=== PATIENT | male | born 1940 | race Caucasian/White ===

== ENCOUNTER 2018-03-24 07:30 | Day surgery (SDC) | payer MEDICARE, OTHER ==
[2018-03-20 11:35] VITALS: BMI 27.9
[~2018-03-24 07:30] MED LIST: SODIUM CHLORIDE 0.9% 1,000 ML IV SCH; ceFAZolin IN SWFI 2 GM/20 ML SYRINGE IVP ONE
[2018-03-24 08:27] VITALS: PULSE 55; TEMP 97.2
[2018-03-24 08:39] LABS: INR 3.7 (<1.2)
[2018-03-24] MEDS ORDERED: IV FLUID CONTINUATION 400 ML IV ONE (09:20)
[2018-03-24] MEDS ORDERED: fentaNYL (PF) 50 MCG/ML 2 ML AMP ONE (09:26)
[2018-03-24] MEDS ORDERED: LIDOCAINE 1% INJ 10MG/ML (20 ML MDV) ONE (09:26)
[2018-03-24] MEDS ORDERED: LIDOCAINE 1% INJ 10MG/ML (20 ML MDV) SQ ONE (09:31)
--- NOTE | 2018-03-24 09:51 | P.PCN ---
Preoperative Diagnosis: Loop monitor implant Primary physicians: Dr. Blank Studio Receptionist: Dr. Posada Indication: Sinus bradycardia, occasional mild dizzy spells Patient was brought to the EP lab in a fasting state. Written informed consent was obtained prior to the procedure. The left pectoral area was prepped and draped per protocol. Intravenous antibiotic was administered preoperatively. A subcutaneous Loop monitor was implanted successfully and the wound was closed per protocol. The device was programmed to detect significant gayle- arrhythmic and tachy-arrhythmic events, per protocol. Device and programming details: Syncope and bradycardia protocol Patient underwent EP procedure under conscious sedation/moderate sedation, monitoring of the level of consciousness and physiologic parameters including but not limited to vital signs and oxygenation. Patient tolerated the procedure well without any acute complications. Start time: 9:24 AM Stop time: 9:42 AM Condition: stable Disposition: same day
[2018-03-24 10:45] VITALS: BP 123/74; RESP 18
== END 2018-03-24 11:15 | disposition home or self-care (01) ==
LOC: CATHEP 07:30
PROVIDERS: ATTEND Internal Medicine Clinical Cardiac Electrophysiology
DX: R00.1 Bradycardia, unspecified (principal); R55 Syncope and collapse; I44.0 Atrioventricular block, first degree; I48.0 Paroxysmal atrial fibrillation; I10 Essential (primary) hypertension; I08.0 Rheumatic disorders of both mitral and aortic valves; E11.9 Type 2 diabetes mellitus without complications; E78.5 Hyperlipidemia, unspecified; F17.210 Nicotine dependence, cigarettes, uncomplicated; F17.220 Nicotine dependence, chewing tobacco, uncomplicated; Z86.73 Personal history of transient ischemic attack (TIA), and cerebral infarction without residual deficits; Z79.01 Long term (current) use of anticoagulants; Z79.82 Long term (current) use of aspirin; Z79.899 Other long term (current) drug therapy; Z88.2 Allergy status to sulfonamides; Z88.8 Allergy status to other drugs, medicaments and biological substances
CPT/HCPCS: 33282; 85610; C1764; J2001; J0690

== ENCOUNTER 2018-03-31 09:45 | Observation (INO) | payer MEDICARE, OTHER ==
[2018-03-31] MEDS ORDERED: ACETAMINOPHEN TAB 325 MG TAB PO STA ×2 (10:34→10:57)
--- NOTE | 2018-03-31 10:50 | ED ---
General Adult HPI - General Source: patient, RN notes reviewed Mode of arrival: wheelchair Limitations: no limitations <Rik Oates - Last Filed: 03/31/18 15:56> <Eugenio Fernandes - Last Filed: 03/31/18 21:23> - General Chief complaint: Back Pain/Injury Stated complaint: Back pain Time Seen by Provider: 03/31/18 10:10 - History of Present Illness Initial comments: 77-year-old male with a past medical history of hypertension, diabetes, CVA presents to the emergency department for a chief complaint of back pain. Patient states his back pain has been chronic for years however worsened last night. He describes the pain is on his right lower back on the point where he generally has pain. He states pressing on this point makes it feel better. Patient states what brought him in today is his right leg has been giving out. Patient states this first occurred about 4 hours ago and he had to catch himself on a chair. Patient states this has occurred about 5 times since then. Patient was using his 's walker at home but states he did not feel he was able to hold himself up with his arms. He denies any numbness or tingling in the right lower leg. He denies any shooting pain. He denies any bladder or bowel changes. No fevers or chills. Patient denies sensation of weakness at this time and states this is only when he is walking. He denies any midline back pain. He denies any recent injuries. He states he was supposed to have an MRI done by his has been sick so he has not been able to schedule this.Patient has no other complaints at this time including shortness of breath , chest pain, abdominal pain, nausea or vomiting, headache, or visual changes. ( Rik Oates) - Related Data Home Medications Medication Instructions Recorded Confirmed Aspirin 81 mg PO DAILY 03/05/14 03/31/18 Fish Oil 2,000 mg PO DAILY 03/05/14 03/31/18 Losartan/Hydrochlorothiazide 1 tab PO DAILY 03/05/14 03/31/18 [Hyzaar 100-25 Tablet] Red Yeast Rice 300 mg PO DAILY 03/05/14 03/31/18 hydrALAZINE HCL [Apresoline] 50 mg PO PC-BID 03/05/14 03/31/18 Folic Acid 1 mg PO DAILY 06/17/14 03/31/18 Cholecalciferol (Vitamin D3) 2,000 unit PO DAILY 03/20/18 03/31/18 [Vitamin D3] Baclofen [Lioresal] 10 mg PO BID 03/31/18 03/31/18 Multivitamin,Therapeutic [Thera] 1 tab PO DAILY 03/31/18 03/31/18 Warfarin [Coumadin] 7.5 mg PO DAILY 03/31/18 03/31/18 Allergies Allergy/AdvReac Type Severity Reaction Status Date / Time Sulfa (Sulfonamide Allergy Swelling Verified 03/31/18 10:10 Antibiotics) ELASTIC Allergy Rash/Hives Uncoded 03/31/18 09:51 Review of Systems ROS Other: All systems not noted in ROS Statement are negative. <Rik Oates P - Last Filed: 03/31/18 15:56> ROS Other: All systems not noted in ROS Statement are negative. <Eugenio Fernandes - Last Filed: 03/31/18 21:23> ROS Statement: Those systems with pertinent positive or pertinent negative responses have been documented in the HPI. Past Medical History Past Medical History: CVA/TIA, Diabetes Mellitus, Hypertension Additional Past Medical History / Comment(s): diet controlled diabetes, CVA 0ct. 2013 History of Any Multi-Drug Resistant Organisms: None Reported Past Surgical History: Prostate Surgery Additional Past Surgical History / Comment(s): HYDROCELE REPAIR, TURP, pt was septic at one time prior to turp Past Anesthesia/Blood Transfusion Reactions: No Reported Reaction Past Psychological History: No Psychological Hx Reported Smoking Status: Former smoker Past Alcohol Use History: None Reported Past Drug Use History: None Reported - Past Family History Father Family Medical History: Chest Pain / Angina Mother Family Medical History: Dementia Additional Family Medical History / Comment(s): alzheimers <Rik Oates P - Last Filed: 03/31/18 15:56> General Exam Limitations: no limitations General appearance: alert, in no apparent distress Head exam: Present: atraumatic, normocephalic, normal inspection Eye exam: Present: normal appearance, PERRL, EOMI. Absent: scleral icterus, conjunctival injection, periorbital swelling ENT exam: Present: normal exam, mucous membranes moist Neck exam: Present: normal inspection, full ROM. Absent: tenderness, meningismus, lymphadenopathy Respiratory exam: Present: normal lung sounds bilaterally. Absent: respiratory distress, wheezes, rales, rhonchi, stridor Cardiovascular Exam: Present: regular rate, normal rhythm, normal heart sounds. Absent: systolic murmur, diastolic murmur, rubs, gallop, clicks GI/Abdominal exam: Present: soft, normal bowel sounds. Absent: distended, tenderness, guarding, rebound, rigid Rectal exam: Present: normal inspection, normal rectal tone Extremities exam: Present: normal capillary refill (Capillary refill less than 2 seconds, feet warm bilaterally.), other (Sensation intact in right lower extremity.). Absent: full ROM (Patient able to flex right hip to 90), joint swelling Back exam: Present: paraspinal tenderness (Right-sided paraspinal tenderness near SI joint.). Absent: vertebral tenderness Neurological exam: Present: alert, oriented X3, CN II-XII intact Expanded Speech: Present: fluid speech Sensory exam: Lower Extremity Light Touch: Normal, Lower Extremity Pin Prick: Normal Motor strength exam: RUE: 5, LUE: 5, RLE: 5, LLE: 5 DTR: Patellar (R): 2+, Patellar (L): 2+, Achilles Tendon (R): 2+, Achilles Tendon (L): 2+ Eye Response: (4) open spontaneously Motor Response: (6) obeys commands Verbal Response: (5) oriented [place] Total: 15 Psychiatric exam: Present: normal affect, normal mood <Rik Oates P - Last Filed: 03/31/18 15:56> Vital Signs 03/31/18 03/31/18 09:48 16:08 Temperature 98.2 F Pulse Rate 67 62 Respiratory 18 18 Rate Blood Pressure 140/81 150/88 O2 Sat by Pulse 97 98 Oximetry EKG Findings - EKG Comments: EKG Findings:: Sinus bradycardia, ventricular rate 55, MN interval 260, QTC 413 , 1.8 second pause <Rik Oates P - Last Filed: 03/31/18 15:56> Medical Decision Making - Lab Data Result diagrams: 03/31/18 11:34 03/31/18 11:34 <Rik Oates P - Last Filed: 03/31/18 15:56> - Lab Data Result diagrams: 03/31/18 11:34 03/31/18 11:34 <Eugenio Fernandes - Last Filed: 03/31/18 21:23> - Medical Decision Making 77-year-old male presents to the emergency department for a chief complaint of back pain. Patient states this has been ongoing for years. However today he started to have weakness in the right leg and states it has been giving out. He states the pain is somewhat worse as well. Vitals are within acceptable limits. On exam no focal neuro deficits. Patient is able to ambulate and denies a sensation of weakness but states he feels as if his right leg is going to give out. Neurovascular intact in the right lower extremity. CBC and CMP are unremarkable. Urine does not show any evidence of infection. INR 3.3, patient currently on Coumadin for chronic atrial fibrillation. EKG does show 1.8 second has, patient currently on a loop recorder for possible pacemaker placement through Dr. Jones. CT shows advanced facet degenerative changes and ligamentum flavum hypertrophy at L3-L4 and advanced broad disc bulge contributing to vital canal stenosis. There is moderate to advanced bilateral neural for minimal narrowing at this level. There is broad based posterior disc protrusion at the area of L4-L5 level. Aneurysms up to 2.3 cm bilateral common iliac arteries seen. At this time it is felt patient is a fall risk. He does not feel comfort while ambulating. Patient was admitted to Dr. Hammond who wanted him on 60 mg of Solu-Medrol every 6 hours. He will be admitted with consult to Dr. Sheikh. Dr. Jones will also be consulted. (Rik Oates) 77-year-old male evaluated for back pain, multiple falls, and weakness in the right lower extremity. 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 He does receive imaging in the emergency department, given his ongoing symptoms patient will be admitted, case is discussed with admitting physician, orthopedics will be placed on consult, patient given steroids, and will receive MRI for further evaluation. (Eugenio Fernandes) - Lab Data Lab Results 03/31/18 03/31/18 03/31/18 Range/Units 11:34 11:34 11:34 WBC 5.7 (3.8-10.6) k/uL RBC 5.07 (4.30-5.90) m/uL Hgb 15.3 (13.0-17.5) gm/dL Hct 47.8 (39.0-53.0) % MCV 94.3 (80.0-100.0) fL MCH 30.1 (25.0-35.0) pg MCHC 32.0 (31.0-37.0) g/dL RDW 13.8 (11.5-15.5) % Plt Count 144 L (150-450) k/uL Neutrophils % 77 % Lymphocytes % 13 % Monocytes % 7 % Eosinophils % 2 % Basophils % 0 % Neutrophils # 4.4 (1.3-7.7) k/uL Lymphocytes # 0.7 L (1.0-4.8) k/uL Monocytes # 0.4 (0-1.0) k/uL Eosinophils # 0.1 (0-0.7) k/uL Basophils # 0.0 (0-0.2) k/uL PT 32.0 H (9.0-12.0) sec INR 3.3 H (<1.2) APTT 33.7 H (22.0-30.0) sec Sodium 140 (137-145) mmol/L Potassium 4.2 (3.5-5.1) mmol/L Chloride 105 (98-107) mmol/L Carbon Dioxide 27 (22-30) mmol/L Anion Gap 8 mmol/L BUN 16 (9-20) mg/dL Creatinine 0.63 L (0.66-1.25) mg/dL Est GFR (CKD-EPI)AfAm >90 (>60 ml/min/1.73 sqM) Est GFR (CKD-EPI)NonAf >90 (>60 ml/min/1.73 sqM) Glucose 101 H (74-99) mg/dL Calcium 9.5 (8.4-10.2) mg/dL Magnesium 1.7 (1.6-2.3) mg/dL Total Bilirubin 1.1 (0.2-1.3) mg/dL AST 36 (17-59) U/L ALT 30 (21-72) U/L Alkaline Phosphatase 35 L (38-126) U/L Total Protein 7.0 (6.3-8.2) g/dL Albumin 3.9 (3.5-5.0) g/dL Urine Color Urine Appearance (Clear) Urine pH (5.0-8.0) Ur Specific [place] (1.001-1.035) Urine Protein (Negative) Urine Glucose (UA) (Negative) Urine Ketones (Negative) Urine Blood (Negative) Urine Nitrite (Negative) Urine Bilirubin (Negative) Urine Urobilinogen (<2.0) mg/dL Ur Leukocyte Esterase (Negative) 03/31/18 Range/Units 12:30 WBC (3.8-10.6) k/uL RBC (4.30-5.90) m/uL Hgb (13.0-17.5) gm/dL Hct (39.0-53.0) % MCV (80.0-100.0) fL MCH (25.0-35.0) pg MCHC (31.0-37.0) g/dL RDW (11.5-15.5) % Plt Count (150-450) k/uL Neutrophils % % Lymphocytes % % Monocytes % % Eosinophils % % Basophils % % Neutrophils # (1.3-7.7) k/uL Lymphocytes # (1.0-4.8) k/uL Monocytes # (0-1.0) k/uL Eosinophils # (0-0.7) k/uL Basophils # (0-0.2) k/uL PT (9.0-12.0) sec INR (<1.2) APTT (22.0-30.0) sec Sodium (137-145) mmol/L Potassium (3.5-5.1) mmol/L Chloride (98-107) mmol/L Carbon Dioxide (22-30) mmol/L Anion Gap mmol/L BUN (9-20) mg/dL Creatinine (0.66-1.25) mg/dL Est GFR (CKD-EPI)AfAm (>60 ml/min/1.73 sqM) Est GFR (CKD-EPI)NonAf (>60 ml/min/1.73 sqM) Glucose (74-99) mg/dL Calcium (8.4-10.2) mg/dL Magnesium (1.6-2.3) mg/dL Total Bilirubin (0.2-1.3) mg/dL AST (17-59) U/L ALT (21-72) U/L Alkaline Phosphatase (38-126) U/L Total Protein (6.3-8.2) g/dL Albumin (3.5-5.0) g/dL Urine Color Yellow Urine Appearance Clear (Clear) Urine pH 6.5 (5.0-8.0) Ur Specific [place] 1.011 (1.001-1.035) Urine Protein Negative (Negative) Urine Glucose (UA) Negative (Negative) Urine Ketones Negative (Negative) Urine Blood Negative (Negative) Urine Nitrite Negative (Negative) Urine Bilirubin Negative (Negative) Urine Urobilinogen <2.0 (<2.0) mg/dL Ur Leukocyte Esterase Negative (Negative) Disposition Is patient prescribed a controlled substance at d/c from ED?: No <Rik Oates P - Last Filed: 03/31/18 15:56> <Eugenio Fernandes - Last Filed: 03/31/18 21:23> Clinical Impression: Back pain, Leg weakness Disposition: ADMITTED IP TO THIS HOSP Condition: Good
[2018-03-31 12:11] LABS: INR 3.3 (<1.2); Partial Thromboplastin Time 33.7 sec (22.0-30.0)
[2018-03-31 12:13] LABS: ALT 30 U/L (21-72); AST 36 U/L (17-59); Albumin 3.9 g/dL (3.5-5.0); Alkaline Phosphatase 35 U/L (38-126); Anion Gap 8 mmol/L; Blood Urea Nitrogen 16 mg/dL (9-20); Calcium 9.5 mg/dL (8.4-10.2); Carbon Dioxide 27 mmol/L (22-30); Chloride 105 mmol/L (98-107); Glucose 101 mg/dL (74-99); Magnesium 1.7 mg/dL (1.6-2.3); Sodium 140 mmol/L (137-145); Total Bilirubin 1.1 mg/dL (0.2-1.3)
[2018-03-31 12:25] LABS: Potassium 4.2 mmol/L (3.5-5.1)
--- NOTE | 2018-03-31 12:46 | CT ---
EXAMINATION TYPE: CT lumbar spine wo con DATE OF EXAM: 03/31/2018 12:29 PM COMPARISON: None HISTORY: Low back pain with Right sided weakness CT DLP: 887.8 mGycm Automated exposure control for dose reduction was used. Unenhanced CT of the lumbar spine was performed. Bone and soft tissue window settings are submitted as well as coronal and sagittal reconstructions. There are 5 lumbar type vertebra identified. There is levoconvex scoliosis centered at L3 level. Ther e is grade 1 retrolisthesis of L2 on L3 and slight grade 1 retrolisthesis of L1 on L2 seen on sagitta l images. Vertebral body heights are maintained. There is moderate to severe disc space narrowing wit h some ossific fusion right L2-L3 level. There is mild to moderate disc space narrowing and moderate spurring right L3-L4 level. There are moderate to large multilevel anterior lateral spurs. There is m oderate narrowing with severe spurring right L1-L2 level. Posterior disc herniations and spur disc co mplexes are effacing anterior thecal sac at multiple levels in the lumbar spine. Axial images at the T12-L1 level show broad-based posterior disc protrusion mildly effacing anterior thecal sac. Bilateral neural foramina are patent. Axial images at the L1-L2 level show mild to moderate facet degenerative changes bilaterally effacing posterior lateral thecal sac. There is broad-based posterior spur disc complex effacing anterior the wood sac. There is moderate bilateral neural foraminal narrowing. Axial images at the L2-L3 level show spondylolisthesis and advanced right greater than left facet deg enerative changes bilaterally. Spinal canal is fairly well preserved axial image 37. Marginal spurrin g contributes to moderate right and mild left-sided neural foraminal narrowing. Axial images at the L3-L4 level show advanced facet degenerative changes and ligamentum flavum hypert rophy and advanced broad disc bulge contributing to most prominent spinal canal stenosis on axial nataly ge 48. In addition there is moderate to advanced bilateral neural foraminal narrowing at this level i dentified. Axial images at the L4-L5 level show advanced facet degenerative changes bilaterally. There is broad- based posterior disc protrusion. There is moderate bilateral neural foraminal narrowing at this level identified. Axial images at L5-S1 level show moderate to advanced left greater than right facet degenerative keith ges bilaterally. There is central disc protrusion but spinal canal is fairly well-maintained. Bilater al neural foramina are mildly narrowed. There is moderate calcified plaque in markedly ectatic abdominal aorta extending into common iliac ar teries. Aneurysm up to 2.3 cm bilateral common iliac arteries is seen. Vascular system is diffusely p rominent. There is nonobstructing 6 mm calculus lower pole level left kidney coronal image 29. IMPRESSION: Scoliosis and multilevel degenerative changes as detailed above, most prominent spinal ca nal effacement or stenosis is L3-L4 level.
[2018-03-31 13:03] LABS: Basophils % (A) 0 %; Eosinophils # (A) 0.1 k/uL (0-0.7); Eosinophils % (A) 2 %; HCT 47.8 % (39.0-53.0); HGB 15.3 gm/dL (13.0-17.5); Lymphocytes # (A) 0.7 k/uL (1.0-4.8); Lymphocytes % (A) 13 %; MCH 30.1 pg (25.0-35.0); MCV 94.3 fL (80.0-100.0); Mean Platelet Volume 8.3; Monocytes # (A) 0.4 k/uL (0-1.0); Monocytes % (A) 7 %; Neutrophils # (A) 4.4 k/uL (1.3-7.7); Neutrophils % (A) 77 %; Platelet Count 144 k/uL (150-450); RBC 5.07 m/uL (4.30-5.90); RDW 13.8 % (11.5-15.5); WBC 5.7 k/uL (3.8-10.6)
--- NOTE | 2018-03-31 13:33 | XR ---
EXAMINATION TYPE: XR chest 2V DATE OF EXAM: 03/31/2018 COMPARISON: 03/05/2014 TECHNIQUE: PA and lateral views submitted. HISTORY: Weakness FINDINGS: The lungs are clear and there is no pneumothorax, pleural effusion, or focal pneumonia. Hyperinflat ion suggests COPD. There is atherosclerotic change aorta. Shoulder no overt failure. Hypertrophic and degenerative change of the spine. IMPRESSION: 1. COPD with no definite acute process.
[2018-03-31 13:46] LABS: Appearance,Urine Clear (Clear); Bilirubin,Urine Negative (Negative); Blood,Urine Negative (Negative); Color,Urine Yellow; Glucose,Urine (UA) Negative (Negative); Ketones,Urine Negative (Negative); Leukocyte Esterase,Urine Negative (Negative); Nitrite,Urine Negative (Negative); PH, Urine 6.5 (5.0-8.0); Protein,Urine Negative (Negative); Specific Gravity,Urine 1.011 (1.001-1.035); Urobilinogen,Urine <2.0 mg/dL (<2.0)
[2018-03-31] MEDS ORDERED: ACETAMINOPHEN TAB 325 MG TAB PO PRN (15:53)
[2018-03-31] MEDS ORDERED: NALOXONE 0.4 MG/ML 1 ML VIAL IV PRN (15:53)
[2018-03-31] MEDS ORDERED: methylPREDNISolone SOD SUCCI 125 MG/2 ML VIAL IVP ONE (16:00)
[2018-03-31] MEDS ORDERED: METHYLPREDNISOLONE SOD SUCCI IVPB SCH (16:00)
[2018-03-31] MEDS ORDERED: SODIUM CHLORIDE 0.9% IVPB SCH (16:00)
[2018-03-31] MEDS: SODIUM CHLORIDE 0.9% 1,000 ML IV SCH (16:17)
[2018-03-31 17:16] VITALS: RESP 16
[2018-03-31] MEDS: hydrALAZINE HCL 50 MG TAB PO SCH (19:12)
--- NOTE | 2018-03-31 19:12 | P.HPIM ---
History of Present Illness H&P Date: 03/31/18 Chief Complaint: Low back pain, radiating to the right leg, unable to ambulate, falls This is a 5-year-old male patient of Dr. Blank and Dr. Haynes nonsustained atrial fibrillation the past, however patient cannot relate to this history. He also has spinal stenosis, PAD, kidney stones, occipital lobe CVA, diabetes mellitus, hypertension, currently [place] doing well at home until she started having severe back pain, patient was not able to ambulate, patient had fallen once today, he has 5 falls this year, patient does not relate to any syncopal event, there is no bladder or bowel abnormality, he does have chronic constipation. Patient uses a walker, is bedridden at home, no fever no chills no dizziness. No prior history of back surgery in the past, no history of pyuria or current hematuria however he does have a kidney stone. He was seen in emergency room secondary back pain, they are more concerned about spinal stenosis which was seen in the CAT scan involving multi disc L2-L3 L3-L4 with spondylolisthesis, consult was made with Dr. Wagner, MRI of the spine to be done. Patient is on Coumadin secondary to paroxysmal atrial fibrillation arising from the CVA, he recently been investigated with a Holter monitor showing a 2 second pause and now requiring a loop recorder placed by Dr. haynes 1 week ago. As per ER physician, patient also has significant pauses in the emergency room, patient will be admitted for Cardiac arrhythmias as well as the neurogenic claudication right side. Consult with Dr. Wagner consult with Dr. haynes MRI of the spine was requested however this needs to be cleared by cardiology to see that this would be safe to do with his recent loop recorder placed 1 week ago Past Medical History Past Medical History: CVA/TIA, Diabetes Mellitus, Hypertension Additional Past Medical History / Comment(s): 03/31/18 pt wants flu vaccine this hospital stay. other hx:diet controlled diabetes, CVA 0ct. 2012, cataracts History of Any Multi-Drug Resistant Organisms: None Reported Past Surgical History: Prostate Surgery Additional Past Surgical History / Comment(s): HYDROCELE REPAIR, TURP, pt was septic at one time prior to turp Past Anesthesia/Blood Transfusion Reactions: No Reported Reaction Smoking Status: Former smoker - Past Family History Father Family Medical History: Chest Pain / Angina Mother Family Medical History: Dementia Additional Family Medical History / Comment(s): alzheimers Medications and Allergies Home Medications Medication Instructions Recorded Confirmed Type Aspirin 81 mg PO DAILY 03/05/14 03/31/18 History Fish Oil 2,000 mg PO DAILY 03/05/14 03/31/18 History Losartan/Hydrochlorothiazide 1 tab PO DAILY 03/05/14 03/31/18 History [Hyzaar 100-25 Tablet] Red Yeast Rice 300 mg PO DAILY 03/05/14 03/31/18 History hydrALAZINE HCL [Apresoline] 50 mg PO PC-BID 03/05/14 03/31/18 History Folic Acid 1 mg PO DAILY 06/17/14 03/31/18 History Cholecalciferol (Vitamin D3) 2,000 unit PO DAILY 03/20/18 03/31/18 History [Vitamin D3] Baclofen [Lioresal] 10 mg PO BID 03/31/18 03/31/18 History Multivitamin,Therapeutic [Thera] 1 tab PO DAILY 03/31/18 03/31/18 History Warfarin [Coumadin] 7.5 mg PO DAILY 03/31/18 03/31/18 History Allergies Allergy/AdvReac Type Severity Reaction Status Date / Time Sulfa (Sulfonamide Allergy Swelling Verified 03/31/18 10:10 Antibiotics) ELASTIC Allergy Rash/Hives Uncoded 03/31/18 09:51 Physical Exam Vitals: Vital Signs Temp Pulse Pulse Resp BP BP Pulse Ox 03/31/18 17:15 98.1 F 58 L 16 147/72 95 03/31/18 16:08 62 18 150/88 98 03/31/18 09:48 98.2 F 67 18 140/81 97 Intake and Output 03/31/18 03/31/18 03/31/18 06:59 14:59 22:59 Other: Weight 97.522 kg - EENT Eyes: anicteric sclerae, EOMI, poor dentition, normal appearance ENT: hearing grossly normal, NA/AT, normal oropharynx - Neck Neck: normal ROM - Respiratory Respiratory: bilateral: CTA, negative: diminished, dullness, rales - Cardiovascular Rhythm: regular Heart sounds: normal: S1, S2 Abnormal Heart Sounds: systolic murmur - Gastrointestinal General gastrointestinal: decreased bowel sounds, soft - Integumentary Integumentary: decreased turgor, normal - Neurologic Neurologic: CNII-XII intact - Musculoskeletal Musculoskeletal: gait normal, generalized weakness, strength equal bilaterally - Psychiatric Psychiatric: A&O x's 3, appropriate affect, intact judgment & insight Results CBC & Chem 7: 03/31/18 11:34 03/31/18 11:34 Labs: Abnormal Lab Results - Last 24 Hours (Table) 03/31/18 03/31/18 03/31/18 Range/Units 11:34 11:34 11:34 Plt Count 144 L (150-450) k/uL Lymphocytes # 0.7 L (1.0-4.8) k/uL PT 32.0 H (9.0-12.0) sec INR 3.3 H (<1.2) APTT 33.7 H (22.0-30.0) sec Creatinine 0.63 L (0.66-1.25) mg/dL Glucose 101 H (74-99) mg/dL Alkaline Phosphatase 35 L (38-126) U/L Thrombosis Risk Factor Assmnt - Choose All That Apply Any of the Below Risk Factors Present?: No Other Risk Factors: No Each Risk Factor Represents 3 Points: Age 75 years or older Thrombosis Risk Factor Assessment Total Risk Factor Score: 3 Thrombosis Risk Factor Assessment Level: Very Low Risk Assessment and Plan Plan: Plan: 1 acute exacerbation of spinal stenosis with right neurogenic claudication, right sciatica, has spondylolisthesis as well L2-L3 L3-L4, patient to be seen by Dr. Conrad, Solu Medrol 60 mg every 6 hours, physical therapy to see the patient. MRI of the spine to be done, however with the recent loop recorder this needs to be verified that it would be safe to proceed with the recent loop recorder 1 week ago. Clearance would come from cardiology 2. prior occipital CVA/TIA on aspirin and Coumadin, we'll going to hold off aspirin continue Coumadin with the possibility that the patient might need epidural steroid injection should the pain be unresolved right radiculitis 3 Paroxysmal atrial fibrillation, patient is on Coumadin and INRs 3.3, we'll going to hold off today's dose March 31, and the shalom tomorrow's dose at 5 mg instead of 7.5 mg daily, goal INR between 2-3 4. Sinus pauses over 3 seconds, patient has a current loop recorder placed [address] haynes, Dr. haynes from cardiology will be following the patient in consultation during this admission, 4 hypertension: Has been well controlled on Hyzaar and hydralazine continue medication. 5 hyperlipidemia: Has been on red yeast rice because of high sensitivity to statin in the past. Need to keep his LDL below 70. 6 diabetes: Has not been on any medication currently still on diet control try to keep his A1c below 6.5. 7. 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 PAD as noted on computed tomography scan, involving common iliac arteries 9. Nonobstructive calculus left kidney asymptomatic 10. GI prophylaxis: Will add Pepcid 20 mg daily. 11. DVT prophylaxis: Early mobilization and knee-high HIRA hose will be done. Recurrent falls, without any current syncope, patient was seen by physical therapy, most likely lumbar spine neurogenic claudication. Therapy to be seen the patient, patient's planning currently undetermined.
[2018-03-31] MEDS ORDERED: WARFARIN 0.5 MG TAB PO ONE (20:00)
[2018-03-31] MEDS: BACLOFEN 10 MG TAB PO SCH (21:50)
[2018-03-31] MEDS: methylPREDNISolone SOD SUCCI 125 MG/2 ML VIAL IVP SCH (21:50)
[2018-04-01] MEDS: methylPREDNISolone SOD SUCCI 125 MG/2 ML VIAL IVP SCH (06:19)
[2018-04-01 07:26] VITALS: BP 174/78; PULSE 75; TEMP 98.1
[2018-04-01] MEDS: BACLOFEN 10 MG TAB PO SCH (07:59)
[2018-04-01] MEDS: hydrALAZINE HCL 50 MG TAB PO SCH (07:59)
[2018-04-01] MEDS ORDERED: LOSARTAN-HCTZ 50-12.5 MG 1 EACH TAB PO SCH (09:00)
[2018-04-01] MEDS: SODIUM CHLORIDE 0.9% 1,000 ML IV SCH (10:03)
[2018-04-01 11:09] LABS: INR 2.6 (<1.2); Prothrombin Time 25.5 sec (9.0-12.0)
--- NOTE | 2018-04-01 12:53 | P.CNOR ---
History of Present Illness - [facility] Consult date: 04/01/18 Requesting physician: Rik Oates Consult reason: low back pain (Right-sided low back pain and right lower extremity weakness) History of present illness: Patient is a very pleasant 77-year-old male who is seen and examined at the bedside with his family present after consultation was placed for further evaluation of his right-sided low back pain with right lower extremity weakness. He is known have chronic low back pain. He states his right leg giving out on him is a new symptom. Since being admitted to the hospital he's been on Solu-Medrol IV and feels his symptoms have improved. He currently denies any lower extremity weakness or radiculopathy bilaterally. He does continue to have some chronic right-sided low back pain but states his pain is significantly better than it was at the time of presentation to the emergency department. He is known have chronic changes of his lumbar spine and has previously followed with Dr. Becker in the outpatient setting. Patient does have a significant medical history which includes hypertension, diabetes, and CVA. Patient is currently on Coumadin secondary to paroxysmal atrial fibrillation arising from a CVA. He recently had a loop recorder placed by Dr. Jones 1 week ago. Past Medical History Past Medical History: CVA/TIA, Diabetes Mellitus, Hypertension Additional Past Medical History / Comment(s): 03/31/18 pt wants flu vaccine this hospital stay. other hx:diet controlled diabetes, CVA 0ct2012, cataracts History of Any Multi-Drug Resistant Organisms: None Reported Past Surgical History: Prostate Surgery Additional Past Surgical History / Comment(s): HYDROCELE REPAIR, TURP, pt was septic at one time prior to turp Past Anesthesia/Blood Transfusion Reactions: No Reported Reaction Smoking Status: Former smoker - Past Family History Father Family Medical History: Chest Pain / Angina Mother Family Medical History: Dementia Additional Family Medical History / Comment(s): alzheimers Medications and Allergies Home Medications Medication Instructions Recorded Confirmed Type Aspirin 81 mg PO DAILY 03/05/14 03/31/18 History Fish Oil 2,000 mg PO DAILY 03/05/14 03/31/18 History Losartan/Hydrochlorothiazide 1 tab PO DAILY 03/05/14 03/31/18 History [Hyzaar 100-25 Tablet] Red Yeast Rice 300 mg PO DAILY 03/05/14 03/31/18 History hydrALAZINE HCL [Apresoline] 50 mg PO PC-BID 03/05/14 03/31/18 History Folic Acid 1 mg PO DAILY 06/17/14 03/31/18 History Cholecalciferol (Vitamin D3) 2,000 unit PO DAILY 03/20/18 03/31/18 History [Vitamin D3] Baclofen [Lioresal] 10 mg PO BID 03/31/18 03/31/18 History Multivitamin,Therapeutic [Thera] 1 tab PO DAILY 03/31/18 03/31/18 History Warfarin [Coumadin] 7.5 mg PO DAILY 03/31/18 03/31/18 History Allergies Allergy/AdvReac Type Severity Reaction Status Date / Time Sulfa (Sulfonamide Allergy Swelling Verified 03/31/18 10:10 Antibiotics) ELASTIC Allergy Rash/Hives Uncoded 03/31/18 09:51 Physical Examination Physical exam: Patient is awake, alert, and oriented 3 Vital signs stable Good chest excursion with deep inspiration and expiration Abdomen soft nontender Examination of lumbar spine reveals skin is intact with no abrasions, lacerations, or bruises; no erythema, purulence or signs of infection Mild pain with palpation of the right lateral lumbar spine Dorsiflexion, plantarflexion, and extensor hallucis longus positive sustained bilaterally Lower extremity strength 5/5 bilaterally Straight leg test negative bilateral lower extremities No signs or symptoms of DVT; no calf pain No pain with internal and external rotation of the hips bilaterally Neurovascularly intact Results Pertinent studies: CT of the lumbar spine: Degenerative scoliosis centered at L3; L1-2 slight grade 1 retrolisthesis, severe degenerative disc disease, moderate facet degenerative changes and broad-based posterior spur disc complex resulting in moderate bilateral neural foraminal narrowing; L2-3 grade 1 retrolisthesis, severe degenerative disc disease, advanced facet degenerative changes bilaterally with moderate right and mild left neural foraminal narrowing; L3-4 moderate degenerative disc disease, advanced facet degenerative changes and ligamentum flavum hypertrophy resulting in spinal canal stenosis and moderate-to -severe bilateral neural foraminal narrowing; L4-5 advanced facet degenerative changes and broad-based posterior disc protrusion resulting in moderate bilateral neural foramina narrowing; L5-S1 advanced facet degenerative changes with bilateral neural foraminal narrowing - Labs Labs: Abnormal Lab Results - Last 24 Hours (Table) 03/31/18 04/01/18 Range/Units 11:34 09:45 Plt Count 144 L (150-450) k/uL Lymphocytes # 0.7 L (1.0-4.8) k/uL PT 25.5 H (9.0-12.0) sec INR 2.6 H (<1.2) H & H 03/31/18 Range/Units 11:34 Hgb 15.3 (13.0-17.5) gm/dL Hct 47.8 (39.0-53.0) % Coagulation 03/31/18 04/01/18 Range/Units 11:34 09:45 INR 3.3 H 2.6 H (<1.2) Result Diagrams: 03/31/18 11:34 03/31/18 11:34 Assessment and Plan Assessment: Assessment: Right-sided low back pain Lumbar degenerative scoliosis Lumbar spinal canal stenosis L3-4 Lumbar retrolisthesis L1-2 and L2-3 Lumbar degenerative disc disease Lumbar advanced facet arthrosis Significant medical history including hypertension, diabetes, and CVA Currently on Coumadin due to paroxysmal atrial fibrillation Current loop recorder intact (1) Right-sided low back pain with sciatica Current Visit: Yes Status: Acute Code(s): M54.41 - LUMBAGO WITH SCIATICA, RIGHT SIDE SNOMED Code(s): 006611385 (2) Right leg weakness Current Visit: Yes Status: Acute Code(s): R29.898 - OTH SYMPTOMS AND SIGNS INVOLVING THE MUSCULOSKELETAL SYSTEM SNOMED Code(s): 880432218 (3) Lumbar stenosis Current Visit: Yes Status: Acute Code(s): M48.061 - SPINAL STENOSIS, LUMBAR REGION WITHOUT NEUROGENIC SILVIA SNOMED Code(s): 20850420 (4) Lumbar facet arthropathy Current Visit: Yes Status: Acute Code(s): M47.816 - SPONDYLOSIS W/O MYELOPATHY OR RADICULOPATHY, LUMBAR REGION SNOMED Code(s): 782940609 (5) Lumbar degenerative disc disease Current Visit: Yes Status: Acute Code(s): M51.36 - OTHER INTERVERTEBRAL DISC DEGENERATION, LUMBAR REGION SNOMED Code(s): 13715035 (6) Spondylolisthesis, lumbar region Current Visit: Yes Status: Acute Code(s): M43.16 - SPONDYLOLISTHESIS, LUMBAR REGION SNOMED Code(s): 167091317593622 (7) History of hypertension Current Visit: Yes Status: Acute Code(s): Z86.79 - PERSONAL HISTORY OF OTHER DISEASES OF THE CIRCULATORY SYSTEM SNOMED Code(s): 155484802 (8) History of CVA (cerebrovascular accident) Current Visit: Yes Status: Acute Code(s): Z86.73 - PRSNL HX OF TIA (TIA), AND CEREB INFRC W/O RESID DEFICITS SNOMED Code(s): 615875001 (9) History of diabetes mellitus Current Visit: Yes Status: Acute Code(s): Z86.39 - PERSONAL HISTORY OF ENDO , NUTRITIONAL AND METABOLIC DISEASE SNOMED Code(s): 328025639 (10) Status post placement of implantable loop recorder Current Visit: Yes Status: Acute Code(s): Z95.818 - PRESENCE OF OTHER CARDIAC IMPLANTS AND GRAFTS SNOMED Code(s): 063751616 (11) 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 After reviewing of imaging, physical examination the patient, and further discussion with the patient and his family, we are currently planning to continue with conservative treatment at this time. Since his admittance to the hospital his chronic right-sided low back pain, which was exacerbated, has had improvement. He was also experiencing some weakness with the right lower extremity which has improved since his admittance. He is not currently [place] and sitting any significant weakness of the bilateral lower extremities or lower extremity radiculopathy. He does continue to have some right-sided low back pain which has improved. At this time he does not feel he needs further workup or evaluation. We will plan to have him follow-up in the outpatient setting with Dr. William Sheikh or Juwan Slaughter PA-C on an as-needed basis. Patient and his family feels this is a good plan of care and would like to call to set up an appointment as needed and would prefer not to schedule an appointment outpatient. 2. Patient will continue to be seen examined by medicine for his other medical diagnoses 3. Patient will continue to follow with Dr. Jones from a cardiac standpoint and with further evaluation of his loop recorder 4. Patient clear for discharge from an orthopedic spine standpoint 5. Patient has been discussed in detail with Dr. William Sheikh and he agrees with this plan Time with Patient: Less than 30
--- NOTE | 2018-04-01 13:16 | P.CRDCN ---
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 He follows with Dr. Jones in the office. We have been asked to see him in consultation for bradycardia with pauses on telemetry. He states he presented to the hospital yesterday with symptoms of significant lower back pain with radiation down the right leg. He underwent loop recorder implantation 03/[address] Jones. He dnies chest pain, shortness of breath, dizziness or palpitations. He is seen and examined sitting up on the edge of the bed in no acute distress awaiting orthopedic evaluation of back pain. His anterior chest wall is noted to have yellow ecchymosis with sutures in place. No redness, pain or swelling at the site. Telemetry tracings reviewed. There is evidence of sinus pauses however all are less than 2 seconds in duration. EKG reveals sinus mechanism with 1st degree AVB with inferior Q-waves heart rate 55 with sinus pause less than 2 seconds. Chest xray reveals COPD with no acute process. Laboratory data reviewed, WBC 5.7, hgb 15.3, plt 144, INR 2.6, sodium 140, potassium 4.2, creatinine 0.63, magnesium 1.7. Current cardiac medications include aspirin 81 mg daily, coumadin, losartan/ hctz 100/25 mg daily and hydralazine 50 mg BID. Most recent echocardiogram obtained in the office reveals preserved LV systolic function with EF 60%, moderate LVH, mildly dilated RV and LA, mild to moderate aortic stenosis with mean gradient across the valve of 16 mmHg, mild aortic regurgitation, mild mitral regurgitation and mild tricuspid regurgitation. At the time of my exam: CONSTITUTIONAL: Denies fever. Denies chills. EYES: Denies blurred vision. Denies vision changes. Denies eye pain. EARS, NOSE, MOUTH & THROAT: Denies headache. Denies sore throat. Denies ear pain. CARDIOVASCULAR: Denies chest pain. Denies shortness of breath. Denies orthopnea. Denies PND. Denies palpitations. RESPIRATORY: Denies cough. GASTROINTESTINAL: Denies abdominal pain. Denies diarrhea. Denies constipation. Denies nausea. Denies vomiting. MUSCULOSKELETAL: Complains of lower back discomfort. INTEGUMENTARY: Denies pruitis. Denies rash. NEUROLOGIC: Denies numbness. Denies tingling. Denies weakness. PSYCHIATRIC: Denies anxiety. Denies depression. ENDOCRINE: Denies fatigue. Denies weight change. Denies polydipsia. Denies polyurina. GENITOURINARY: Denies burning, hematuria or urgency with micturation. HEMATOLOGIC: Denies history of anemia. Denies bleeding. GENERAL: This is a 77-year-old male in no apparent distress at the time of my examination. HEENT: Head is atraumatic, normocephalic. Pupils are equal, round. Sclerae anicteric. Conjunctivae are clear. Mucous membranes of the mouth are moist. Neck is supple. There is no jugular venous distention. No carotid bruit is heard. LUNGS: Clear to auscultation no wheezes, rales or rhonchi. No chest wall tenderness is noted on palpation or with deep breathing. HEART: Regular rate and rhythm with soft systolic murmur at the base, no rubs or gallops. S1 and S2 heard. Sutures in place to left anterior chest wall with yellow ecchymosis noted. ABDOMEN: Soft, nontender. Bowel sounds are heard. No organomegaly noted. EXTREMITIES: No evidence of peripheral edema and no calf tenderness noted. VASCULAR: Radial and dorsalis pedis pulses palpated, no evidence of clubbing. NEUROLOGIC: Patient is awake, alert and oriented x3. ASSESSMENT Paroxysmal atrial fibrillation on [facility] anticoagulation, currently maintaining sinus mechanism Lower back pain Hypertension Diabetes mellitus History of sinus bradycardia while sleeping with loop recorder in place Dyslipidemia Aortic stenosis, mean gradient 16 mmHg PLAN Stable from a cardiac perspective. No evidence of significant symptomatic bradycardia. Pauses are less than 2 seconds and asymptomatic. Check thyroid function. Ongoing medical management. Follow up with Dr. Jones at next scheduled appointment. Thank you kindly for this consultation. Nurse Practitioner note has been reviewed, I agree with a documented findings and plan of care. Patient was seen and examined. Past Medical History Past Medical History: CVA/TIA, Diabetes Mellitus, Hypertension Additional Past Medical History / Comment(s): 03/31/18 pt wants flu vaccine this hospital stay. other hx:diet controlled diabetes, CVA 0ct. 2012, cataracts History of Any Multi-Drug Resistant Organisms: None Reported Past Surgical History: Prostate Surgery Additional Past Surgical History / Comment(s): HYDROCELE REPAIR, TURP, pt was septic at one time prior to turp Past Anesthesia/Blood Transfusion Reactions: No Reported Reaction Smoking Status: Former smoker - Past Family History Father Family Medical History: Chest Pain / Angina Mother Family Medical History: Dementia Additional Family Medical History / Comment(s): alzheimers Medications and Allergies Home Medications Medication Instructions Recorded Confirmed Type Aspirin 81 mg PO DAILY 03/05/14 03/31/18 History Fish Oil 2,000 mg PO DAILY 03/05/14 03/31/18 History Losartan/Hydrochlorothiazide 1 tab PO DAILY 03/05/14 03/31/18 History [Hyzaar 100-25 Tablet] Red Yeast Rice 300 mg PO DAILY 03/05/14 03/31/18 History hydrALAZINE HCL [Apresoline] 50 mg PO PC-BID 03/05/14 03/31/18 History Folic Acid 1 mg PO DAILY 06/17/14 03/31/18 History Cholecalciferol (Vitamin D3) 2,000 unit PO DAILY 03/20/18 03/31/18 History [Vitamin D3] Baclofen [Lioresal] 10 mg PO BID 03/31/18 03/31/18 History Multivitamin,Therapeutic [Thera] 1 tab PO DAILY 03/31/18 03/31/18 History Warfarin [Coumadin] 7.5 mg PO DAILY 03/31/18 03/31/18 History Allergies Allergy/AdvReac Type Severity Reaction Status Date / Time Sulfa (Sulfonamide Allergy Swelling Verified 03/31/18 10:10 Antibiotics) ELASTIC Allergy Rash/Hives Uncoded 03/31/18 09:51 Physical Exam Vitals: Vital Signs Temp Pulse Pulse Resp BP BP Pulse Ox 04/01/18 07:00 98.1 F 75 16 174/78 97 04/01/18 00:50 16 03/31/18 23:00 98.7 F 63 16 117/71 96 03/31/18 20:45 64 16 03/31/18 19:00 98.3 F 64 16 134/69 95 03/31/18 17:15 98.1 F 58 L 16 147/72 95 03/31/18 16:08 62 18 150/88 98 Intake and Output 03/31/18 04/01/18 04/01/18 22:59 06:59 14:59 Intake Total 560 950 Balance 560 950 Intake: Intake, IV Titration 560 600 Amount Sodium Chloride 0.9% 1, 560 600 000 ml @ 75 mls/hr IV . [id number] [facility] Rx#:[id number] Oral 350 Other: Voiding Method Toilet # Voids 3 4 # Bowel Movements 1 Results 03/31/18 11:34 03/31/18 11:34 Cardiac Enzymes 03/31/18 Range/Units 11:34 AST 36 (17-59) U/L Coagulation 03/31/18 04/01/18 Range/Units 11:34 09:45 PT 32.0 H 25.5 H (9.0-12.0) sec APTT 33.7 H (22.0-30.0) sec CBC 03/31/18 Range/Units 11:34 WBC 5.7 (3.8-10.6) k/uL RBC 5.07 (4.30-5.90) m/uL Hgb 15.3 (13.0-17.5) gm/dL Hct 47.8 (39.0-53.0) % Plt Count 144 L (150-450) k/uL Comprehensive Metabolic Panel 03/31/18 Range/Units 11:34 Sodium 140 (137-145) mmol/L Potassium 4.2 (3.5-5.1) mmol/L Chloride 105 (98-107) mmol/L Carbon Dioxide 27 (22-30) mmol/L BUN 16 (9-20) mg/dL Creatinine 0.63 L (0.66-1.25) mg/dL Glucose 101 H (74-99) mg/dL Calcium 9.5 (8.4-10.2) mg/dL AST 36 (17-59) U/L ALT 30 (21-72) U/L Alkaline Phosphatase 35 L (38-126) U/L Total Protein 7.0 (6.3-8.2) g/dL Albumin 3.9 (3.5-5.0) g/dL Current Medications Generic Name Dose Route Start Last Admin Trade Name Freq PRN Reason Stop Dose Admin Acetaminophen 650 mg 03/31/18 15:53 Tylenol Tab PO Q6HR PRN Mild Pain or Fever > 100.5 Baclofen 10 mg 03/31/18 21:00 04/01/18 07:59 Lioresal PO 10 mg BID GARCIA Administration HCTZ/Losartan Potassium 2 each 04/01/18 09:00 04/01/18 07:59 Hyzaar 50-12.5 PO 2 each DAILY GARCIA Administration Hydralazine HCl 50 mg 03/31/18 18:30 04/01/18 07:59 Apresoline PO 50 mg PC-BID GARCIA Administration Sodium Chloride 1,000 mls @ 75 mls/hr 03/31/18 16:00 04/01/18 10:03 Saline 0.9% IV Not Given .[id number] GARCIA Methylprednisolone Sodium Succinate 60 mg 03/31/18 22:00 04/01/18 06:19 Solu-Medrol IVP 60 mg Q6HR GARCIA Administration Miscellaneous Information 1 each 03/31/18 19:11 Coumadin Per Pharmacy MISCELLANE DIRECTED PRN Per Protocol Naloxone HCl 0.2 mg 03/31/18 15:53 Narcan IV Q2M PRN Opioid Reversal Intake and Output 03/31/18 04/01/18 04/01/18 22:59 06:59 14:59 Intake Total 560 950 Balance 560 950 Intake: Intake, IV Titration 560 600 Amount Sodium Chloride 0.9% 1, 560 600 000 ml @ 75 mls/hr IV . [id number] GARCIA Rx#:[id number] Oral 350 Other: Voiding Method Toilet # Voids 3 4 # Bowel Movements 1 03/31/18 11:34 03/31/18 11:34
[2018-04-01] MEDS ORDERED: WARFARIN 5 MG TAB PO ONE (18:00)
[2018-04-01] MEDS ORDERED: WARFARIN 5 MG TAB PO SCH (18:00)
--- NOTE | 2018-04-02 10:15 | P.PN ---
Subjective Progress Note Date: 04/01/18 This is a 5-year-old male patient of Dr. Blank and Dr. Haynes nonsustained atrial fibrillation the past, however patient cannot relate to this history. He also has spinal stenosis, PAD, kidney stones, occipital lobe CVA, diabetes mellitus, hypertension, currently [place] doing well at home until she started having severe back pain, patient was not able to ambulate, patient had fallen once today, he has 5 falls this year, patient does not relate to any syncopal event, there is no bladder or bowel abnormality, he does have chronic constipation. Patient uses a walker, is bedridden at home, no fever no chills no dizziness. No prior history of back surgery in the past, no history of pyuria or current hematuria however he does have a kidney stone. He was seen in emergency room secondary back pain, they are more concerned about spinal stenosis which was seen in the CAT scan involving multi disc L2-L3 L3-L4 with spondylolisthesis, consult was made with Dr. Wagner, MRI of the spine to be done. Patient is on Coumadin secondary to paroxysmal atrial fibrillation arising from the CVA, he recently been investigated with a Holter monitor showing a 2 second pause and now requiring a loop recorder placed by Dr. haynes 1 week ago. As per ER physician, patient also has significant pauses in the emergency room, patient will be admitted for Cardiac arrhythmias as well as the neurogenic claudication right side. Consult with Dr. Wagner consult with Dr. haynes MRI of the spine was requested however this needs to be cleared by cardiology to see that this would be safe to do with his recent loop recorder placed 1 week ago 04/01: Patient is sitting in recliner and appears to be comfortable. His daughter is at the bedside. INR today is at 2.6. Patient did not receive Coumadin last night but will resume tonight. He has been seen by TRAVIS Griffin from Dr. Sheikh's office with plan for outpatient follow-up. Cardiology is cleared the patient for discharge. Patient will be discharged on a tapering dose of prednisone. Discharge diagnoses: 1. Acute exacerbation of spinal stenosis with right neurogenic claudication, right sciatica, has spondylolisthesis as well L2-L3 L3-L4 2. Prior occipital CVA/TIA 3. Paroxysmal atrial fibrillation 4. Sinus pauses over 3 seconds, patient has a current loop recorder 5. Hypertension 6. Hyperlipidemia 7. Diabetes on diet control 8. 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 PAD as noted on computed tomography scan, involving common iliac arteries 10. Nonobstructive calculus left kidney asymptomatic 11. Recurrent falls, without any current syncope Discharge plan: Home Impression and plan of care have been directed as dictated by the signing physician. Gwendolyn Harvey nurse practitioner acting as scribe for signing physician. Objective - Vital Signs Vital signs: Vital Signs Temp 98.1 F 04/01/18 07:00 Pulse 75 04/01/18 07:00 Resp 16 04/01/18 07:00 BP 174/78 04/01/18 07:00 Pulse Ox 97 04/01/18 07:00 Intake & Output 03/31/18 04/01/18 04/01/18 18:59 06:59 18:59 Intake Total 1510 Balance 1510 Weight 97.522 kg Intake: Intake, IV Titration 1160 Amount Sodium Chloride 0.9% 1, 1160 000 ml @ 75 mls/hr IV . [id number] [facility] Rx#:[id number] Oral 350 Other: Voiding Method Toilet # Voids 4 # Bowel Movements 1 - Exam - EENT Eyes: anicteric sclerae, EOMI, poor dentition, normal appearance ENT: hearing grossly normal, NA/AT, normal oropharynx - Neck Neck: normal ROM - Respiratory Respiratory: bilateral: CTA, negative: diminished, dullness, rales - Cardiovascular Rhythm: regular Heart sounds: normal: S1, S2 Abnormal Heart Sounds: systolic murmur - Gastrointestinal General gastrointestinal: decreased bowel sounds, soft - Integumentary Integumentary: decreased turgor, normal - Neurologic Neurologic: CNII-XII intact - Musculoskeletal Musculoskeletal: gait normal, generalized weakness, strength equal bilaterally - Psychiatric Psychiatric: A&O x's 3, appropriate affect, intact judgment & insight - Labs CBC & Chem 7: 03/31/18 11:34 03/31/18 11:34 Labs: Abnormal Lab Results - Last 24 Hours (Table) 03/31/18 04/01/18 Range/Units 11:34 09:45 Plt Count 144 L (150-450) k/uL Lymphocytes # 0.7 L (1.0-4.8) k/uL PT 25.5 H (9.0-12.0) sec INR 2.6 H (<1.2) Assessment and Plan Plan: 1 acute exacerbation of spinal stenosis with right neurogenic claudication, right sciatica, has spondylolisthesis as well L2-L3 L3-L4, patient to be seen by Dr. Conrad, Solu Medrol 60 mg every 6 hours, physical therapy to see the patient. MRI of the spine to be done, however with the recent loop recorder this needs to be verified that it would be safe to proceed with the recent loop recorder 1 week ago. Clearance would come from cardiology 2. prior occipital CVA/TIA on aspirin and Coumadin, we'll going to hold off aspirin continue Coumadin with the possibility that the patient might need epidural steroid injection should the pain be unresolved right radiculitis 3 Paroxysmal atrial fibrillation, patient is on Coumadin and INRs 3.3, we'll going to hold off today's dose March 31, and the shalom tomorrow's dose at 5 mg instead of 7.5 mg daily, goal INR between 2-3 4. Sinus pauses over 3 seconds, patient has a current loop recorder placed [address] haynes, Dr. haynes from cardiology will be following the patient in consultation during this admission, 4 hypertension: Has been well controlled on Hyzaar and hydralazine continue medication. 5 hyperlipidemia: Has been on red yeast rice because of high sensitivity to statin in the past. Need to keep his LDL below 70. 6 diabetes: Has not been on any medication currently still on diet control try to keep his A1c below 6.5. 7. 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 PAD as noted on computed tomography scan, involving common iliac arteries 9. Nonobstructive calculus left kidney asymptomatic 10. GI prophylaxis: Will add Pepcid 20 mg daily. 11. DVT prophylaxis: Early mobilization and knee-high HIRA hose will be done. Recurrent falls, without any current syncope, patient was seen by physical therapy, most likely lumbar spine neurogenic claudication. Therapy to be seen the patient, patient's planning currently undetermined. Discharge plan: return home
== END 2018-04-01 14:20 | disposition home health service (06) ==
LOC: EC 09:45 → 4SSUR 15:22
PROVIDERS: ADMIT Family Medicine; ATTEND Family Medicine
DX: M48.062 Spinal stenosis, lumbar region with neurogenic claudication (principal); M51.16 Intervertebral disc disorders with radiculopathy, lumbar region; M43.16 Spondylolisthesis, lumbar region; M41.86 Other forms of scoliosis, lumbar region; I10 Essential (primary) hypertension; E11.9 Type 2 diabetes mellitus without complications; I48.2 Chronic atrial fibrillation; I73.9 Peripheral vascular disease, unspecified; K59.09 Other constipation; N20.0 Calculus of kidney; H26.9 Unspecified cataract; E78.5 Hyperlipidemia, unspecified; I72.3 Aneurysm of iliac artery; R00.1 Bradycardia, unspecified; J44.9 Chronic obstructive pulmonary disease, unspecified; I35.0 Nonrheumatic aortic (valve) stenosis; Z79.82 Long term (current) use of aspirin; Z79.01 Long term (current) use of anticoagulants; Z79.899 Other long term (current) drug therapy; Z88.2 Allergy status to sulfonamides; Z91.048 Other nonmedicinal substance allergy status; Z87.891 Personal history of nicotine dependence; Z95.818 Presence of other cardiac implants and grafts; Z86.73 Personal history of transient ischemic attack (TIA), and cerebral infarction without residual deficits; R29.6 Repeated falls; Z82.0 Family history of epilepsy and other diseases of the nervous system
CPT/HCPCS: 36415; 71046; 72131; 80053; 81003; 83735; 84443; 85025; 85610; 85730; 93005; 96374; 96376; 99285

== ENCOUNTER → 2018-05-06 | Outpatient (CLI) | payer MEDICARE, OTHER ==
--- NOTE | 2018-05-06 17:24 | P.SLEEP ---
History of Present Illness H&P Date: 05/06/18 This is a 77-year-old male patient with history of bruxism atrial fibrillation and has been on long-term and to coagulation with warfarin. The patient also has history of hypertension, hyperlipidemia, history of CVA in 2012 and chronic back pain and previous history of loop recorder implantation for bradycardia which showed pauses and for that reason the patient was referred to Dr. Posada for an electrophysiologic evaluation. The patient was in the hospital in March 2018. Back then he was noted to have some bradycardia with pauses on telemetry. These episodes seem to predominantly occurring at nighttime. Note that he has undergone a loop recorder implantation on 03/24/2018 for further investigation. He had no chest pain or shortness of breath. He is telemetry tracing from his previous hospitalization at shown some sinus pauses however there were all less than 2 seconds in duration. Furthermore, the patient had a echocardiogram that showed an ejection fraction of 60% with moderate LVH and mildly dilated RV and and a and mild to moderate aortic stenosis. The patient was referred to the sleep center for a sleep apnea evaluation to see if there is any contribution from sleep breathing disorder on his cardiac arrhythmias. In terms of his his sleep history, the patient has no documented history of snoring. We think he snores as reported by his family members. He is sleepy and he falls asleep during the day and he has some problems with concentration or memory. He has low heart rates and today's pulses at the rate of 67. He was admitted around 12:30 AM and he wakes of 9 AM in the morning and he averages more than 7 hours of sleep. His weight has been stable. He does not wake up in the middle of the night unless his needs assistance. He takes a nap at 4 PM and 6 PM. Despite all this, his upper score was reported to be at too. No recent weight gain or weight loss. No several dennys appearof substance abuse. No other complaints otherwise. He has lost probably 90 pounds over the past many years by diet. Current weight is down to 194 and the patient is a BMI of 30.3. He also has a previous stroke which has l visual deficits along his right eye Review of Systems Constitutional: Reports daytime sleepiness, Reports fatigue Eyes: denies as per HPI, denies blurred vision, denies bulging eye, denies decreased vision, denies diplopia, denies discharge, denies dry eye, denies irritation, denies itching, denies pain, denies photophobia, denies loss of peripheral vision, denies loss of vision, denies tunnel vision/blind spots Ears: deny: decreased hearing, ear discharge, earache, tinnitus Ears, nose, mouth and throat: Denies headache, Denies sore throat Cardiovascular: Reports as per HPI, Reports irregular heart beat Respiratory: Reports snoring, Denies cough Gastrointestinal: Reports as per HPI Genitourinary: Reports as per HPI Musculoskeletal: Reports as per HPI Musculoskeletal: absent: ankle pain, ankle stiffness, ankle swelling, as per HPI , elbow pain, elbow stiffness, elbow swelling, foot pain, foot stiffness, foot swelling, hand pain, hand stiffness, hand swelling, hip pain, hip stiffness, hip swelling, knee pain, knee stiffness, knee swelling, shoulder pain, shoulder stiffness, shoulder swelling, wrist pain, wrist stiffness, wrist swelling Integumentary: Denies pruritus, Denies rash Neurological: Denies numbness, Denies weakness Psychiatric: Denies anxiety, Denies depression Endocrine: Denies fatigue, Denies weight change Hematologic/Lymphatic: Reports as per HPI Allergic/Immunologic: Reports as per HPI Past Medical History Past Medical History: CVA/TIA, Diabetes Mellitus, Hypertension Additional Past Medical History / Comment(s): diet controlled diabetes, CVA 0ct. 2012, cataracts, hypertension, aortic stenosis mild to moderate in severity , hyperlipidemia and history of chronic atrial fibrillation maintained on long- term articulation with warfarin. Furthermore the patient is having issues with bradycardia and sinus pauses. Patient also has history of BPH History of Any Multi-Drug Resistant Organisms: None Reported Past Surgical History: Prostate Surgery Additional Past Surgical History / Comment(s): HYDROCELE REPAIR, TURP, pt was septic at one time prior to turp Past Anesthesia/Blood Transfusion Reactions: No Reported Reaction Smoking Status: Former smoker - Past Family History Father Family Medical History: Chest Pain / Angina Mother Family Medical History: Dementia Additional Family Medical History / Comment(s): alzheimers Medications and Allergies Home Medications Medication Instructions Recorded Confirmed Type Aspirin 81 mg PO DAILY 03/05/14 03/31/18 History Fish Oil 2,000 mg PO DAILY 03/05/14 03/31/18 History Losartan/Hydrochlorothiazide 1 tab PO DAILY 03/05/14 03/31/18 History [Hyzaar 100-25 Tablet] Red Yeast Rice 300 mg PO DAILY 03/05/14 03/31/18 History hydrALAZINE HCL [Apresoline] 50 mg PO PC-BID 03/05/14 03/31/18 History Folic Acid 1 mg PO DAILY 06/17/14 03/31/18 History Cholecalciferol (Vitamin D3) 2,000 unit PO DAILY 03/20/18 03/31/18 History [Vitamin D3] Baclofen [Lioresal] 10 mg PO BID 03/31/18 03/31/18 History Multivitamin,Therapeutic [Thera] 1 tab PO DAILY 03/31/18 03/31/18 History Warfarin [Coumadin] 7.5 mg PO DAILY 03/31/18 03/31/18 History Omeprazole 20 mg PO DAILY #30 tablet. 04/01/18 Rx predniSONE 0 mg PO DIRECTED #30 tab 04/01/18 Rx Allergies Allergy/AdvReac Type Severity Reaction Status Date / Time Sulfa (Sulfonamide Allergy Swelling Verified 03/31/18 10:10 Antibiotics) ELASTIC Allergy Rash/Hives Uncoded 03/31/18 09:51 Physical Exam The patient appeared well nourished and normally developed. Vital signs as documented. Head exam is unremarkable. No scleral icterus or corneal arcus noted. Neck is without jugular venous distension, thyromegaly, or carotid bruits. Carotid upstrokes are brisk bilaterally. Lungs are clear to auscultation and percussion. Cardiac exam reveals the PMI to be normally sized and situated. Rhythm is regular. First and second heart sounds normal. No murmurs, rubs or gallops. Abdominal exam reveals normal bowel sounds, no masses , no organomegaly and no aortic enlargement. Extremities are nonedematous and both femoral and pedal pulses are normal. The patient is a neck size of 16 inches. Examination of the skin revealed no evidence of significant rashes, suspicious appearing nevi or other concerning lesions. Neurologically is awake and alert and is no focal neurological deficits. Assessment and Plan Plan: 1 Nocturnal bradycardia arrhythmia and cardiac pauses of less than 3 seconds, currently under investigation. Rule out underlying obstructive sleep apnea 2 paroxysmal atrial fibrillation 3 diabetes mellitus 4 hypertension 5 mild to moderate aortic stenosis 6 hyperlipidemia 7 history of CVA back in 2012 Plan It is likely that the patient may have an underlying sleep breathing disorder based on the reported nocturnal bradycardia arrhythmias and brief cardiac pauses. He is currently wearing a loop recorder. He is under the care of Dr. Posada from electrophysiology. We are going to proceed with a screening polysomnogram looking for any significant nocturnal arrhythmias and is sent to look for any sleep breathing disorder that could potentially contribute to this type of cardiac arrhythmias. We'll continue to follow. Sleep Note - Sleep Note Sleep Note: Temperature: 97 3 Pulse Rate: 67 Respiratory Rate: 16 Blood Pressure: 128/87 SpO2: 96% on room air Height: 5 feet and 7 inches Weight: 194 BMI: 30.3 Neck Circumference: 16 inches
== END | disposition home or self-care (01) ==
LOC: SLEEP 16:28
PROVIDERS: ATTEND Internal Medicine Critical Care Medicine
DX: I49.8 Other specified cardiac arrhythmias (principal); I48.0 Paroxysmal atrial fibrillation; E11.9 Type 2 diabetes mellitus without complications; I10 Essential (primary) hypertension; E78.5 Hyperlipidemia, unspecified; Z86.73 Personal history of transient ischemic attack (TIA), and cerebral infarction without residual deficits; I35.0 Nonrheumatic aortic (valve) stenosis; Z88.2 Allergy status to sulfonamides; Z91.09 Other allergy status, other than to drugs and biological substances; Z79.899 Other long term (current) drug therapy; Z79.82 Long term (current) use of aspirin; Z79.01 Long term (current) use of anticoagulants
CPT/HCPCS: 99211

== ENCOUNTER → 2018-05-14 | Outpatient (CLI) | payer MEDICARE, OTHER ==
[2018-05-14 11:20] LABS: Anion Gap 10.1 mmol/L (4.00-12.00); Calcium 9.2 mg/dL (8.7-10.3); Carbon Dioxide 28.9 mmol/L (21.6-31.8); Potassium 3.7 mmol/L (3.5-5.5)
== END | disposition home or self-care (01) ==
LOC: LABWHC1 06:54
PROVIDERS: ATTEND Internal Medicine Clinical Cardiac Electrophysiology
DX: I49.5 Sick sinus syndrome (principal)
CPT/HCPCS: 36415; 80048; 84443

== ENCOUNTER → 2018-05-14 | Outpatient (CLI) | payer MEDICARE, OTHER ==
[2018-05-14 07:47] LABS: HCT 46.4 % (39.0-53.0); MCH 30.6 pg (25.0-35.0); MCHC 32.4 g/dL (31.0-37.0); MCV 94.4 fL (80.0-100.0); Mean Platelet Volume 8.1; Platelet Count 166 k/uL (150-450); RBC 4.91 m/uL (4.30-5.90); RDW 13.9 % (11.5-15.5); WBC 4.1 k/uL (3.8-10.6)
== END | disposition home or self-care (01) ==
LOC: LABPAT 06:51
PROVIDERS: ATTEND Internal Medicine Clinical Cardiac Electrophysiology
DX: Z01.812 Encounter for preprocedural laboratory examination (principal); I48.1 Persistent atrial fibrillation; I35.0 Nonrheumatic aortic (valve) stenosis
CPT/HCPCS: 85027

== ENCOUNTER 2018-05-20 09:49 | Day surgery (SDC) | payer MEDICARE, OTHER ==
[2018-05-15 15:37] VITALS: BMI 30.1
[~2018-05-20 09:49] MED LIST changes: +LIDOCAINE 1% 20 ML VIAL (10MG/ML) FOR IV START INTRADERMA PRN; -SODIUM CHLORIDE 0.9% 1,000 ML IV SCH; +ceFAZolin 1,000 MG in SODIUM CHLORIDE 0.9% IRRIGATIO 250 ML IRRIGATION ONE
[2018-05-20 10:48] LABS: Prothrombin Time 28.7 sec (9.0-12.0)
[2018-05-20] MEDS ORDERED: fentaNYL (PF) 50 MCG/ML 2 ML AMP ONE (12:00)
[2018-05-20] MEDS ORDERED: PROPOFOL 10 MG/ML 20 ML VIAL IV ONE (12:00)
[2018-05-20] MEDS ORDERED: IV FLUID CONTINUATION 950 ML IV ONE (12:00)
[2018-05-20] MEDS ORDERED: MIDAZOLAM 2 MG/2 ML VIAL ONE (12:00)
[2018-05-20] MEDS ORDERED: LIDOCAINE 1% INJ 10MG/ML (20 ML MDV) ONE (12:31)
[2018-05-20] MEDS ORDERED: IOPAMIDOL-370 50ML BTL INJ ONE (12:32)
[2018-05-20] MEDS ORDERED: LIDOCAINE 1% INJ 10MG/ML (20 ML MDV) SQ ONE (13:08)
[2018-05-20] MEDS ORDERED: ACETAMINOPHEN IV (For NPO) 1,000 MG in EMPTY BAG 1 BAG IVPB ONE (15:34)
[2018-05-20] MEDS ORDERED: HYDROcodone/APAP 5-325MG 1 EACH TAB PO PRN (15:34)
[2018-05-20] MEDS ORDERED: ACETAMINOPHEN TAB 325 MG TAB PO PRN (15:34)
--- NOTE | 2018-05-20 15:39 | P.PRLE ---
RE: Ron Mclaughlin Dear Juan Mr. Ron Mclaughlin has severe sick sinus syndrome with severe bradycardia and first- degree AV block as well as paroxysmal atrial fibrillation he was brought in for a biventricular pacemaker implantation. He underwent successful implantation of a His bundle lead for physiologic septal pacing with excellent thresholds for selective His bundle capture He will continue with anticoagulation for stroke prevention since he also has paroxysmal atrial fibrillation Thank you for entrusting me with the care of the patient Warm regards Sincerely Alessandro Joens
[2018-05-20] MEDS: LACTATED RINGERS 1,000 ML IV SCH (16:52)
[2018-05-20] MEDS: ceFAZolin IN SWFI 2 GM/20 ML SYRINGE IVP SCH ×2 (18:17→23:54)
[2018-05-20] MEDS: SODIUM CHLORIDE 0.9% 1,000 ML IV SCH (18:29)
--- NOTE | 2018-05-20 19:31 | PCN ---
PROCEDURE NOTE Ron Mclaughlin is a 77-year-old male patient who had a loop monitor implanted for recurrent dizzy spells. He was found to have #1 paroxysmal atrial fibrillation with a slow ventricular response. #2 sick sinus syndrome with severe sinus bradycardia in the 30s. He is brought in for a biventricular pacemaker implantation since he also has a first- degree AV block and the anticipated RV pacing percentage will be high. Patient brought to the EP lab in a fasting state. Written informed consent was obtained prior to the procedure. The left shoulder area was prepped and draped as per protocol. 1% lidocaine used for local anesthesia. A 4 cm incision was made parallel to the deltopectoral groove, about 1.5 cm medial to it. The incision was carried down to the level of the pectoralis muscle. A subfascial pocket was made. Hemostasis was assured. The left axillary vein was accessed at 3 separate points under fluoroscopy and via appropriately-sized introducer sheaths, three leads were positioned in the right heart. The atrial lead foot was a Medtronic screw-in lead. This was implanted in the right atrial appendage. Medtronic model #5076, 45 cm in length and serial number [id number]. The P waves were 1.8 mV. Pacing impedance 1000 ohms, pacing threshold 1.1 V at 0.5 milliseconds. 10 V test negative. The RV lead was positioned in the RV apex. This is a 50 cm screw-in lead, model #5076. Serial number [id number]. This was positioned in the RV apex. R-waves were 8.9 mV. Pacing impedance 972 ohms, pacing threshold 0.4 V at 0.5 milliseconds. 10 V test was negative. The third lead was screwed in the His bundle area for physiologic septal pacing and later connected to the LV port. This was model #3830, 69 cm in length and serial number [id number]. Both selective His bundle capture was noted up until 0.8 V at 1 millisecond. Thereafter nonselective capture was noted and then complete loss of capture 0.5 V at 1 millisecond. The HIS bundle lead was connected to the LV port of the biventricular pacemaker [email or web address] model number W1TR02, serial number [id number]. The leads and generator were then placed in subfascial pocket. The wound was closed in 3 layers and dressed per protocol. RESULT: Successful permanent pacemaker implantation with physiologic septal pacing to minimize RV pacing for management of sick sinus syndrome and abnormal AV node function with high anticipated RV pacing percentage. PLAN: Continue lifelong anticoagulation. MINDA / JORGEN: [id number] /
[2018-05-20] MEDS: hydrALAZINE HCL 50 MG TAB PO SCH (21:46)
[2018-05-20] MEDS: BACLOFEN 10 MG TAB PO SCH (22:24)
[2018-05-20 23:39] VITALS: RESP 18
[2018-05-21] MEDS: SODIUM CHLORIDE 0.9% 1,000 ML IV SCH (03:02)
[2018-05-21] MEDS: LACTATED RINGERS 1,000 ML IV SCH (06:11)
[2018-05-21] MEDS: ceFAZolin IN SWFI 2 GM/20 ML SYRINGE IVP SCH ×2 (06:19→12:01)
[2018-05-21] MEDS ORDERED: PANTOPRAZOLE 40 MG TABLET PO SCH (07:30)
[2018-05-21] MEDS: BACLOFEN 10 MG TAB PO SCH (07:57)
[2018-05-21] MEDS: hydrALAZINE HCL 50 MG TAB PO SCH (07:57)
--- NOTE | 2018-05-21 07:57 | P.DS ---
Providers Attending physician: Alessandro Jones [facility] Course: Patient is doing well. He is walking around his room no dizziness lightheadedness chest pain Pacemaker site is healed well is minimal swelling no bruising no soakage Breath sounds are clear no rhonchi no crackles At sounds are normal normal S1 normal S2 there is a very soft systolic murmur Abdomen is soft nontender Extremities are warm No JVD Impression Sick Sinus Syndrome symptomatic with history of dizziness Intermittent AV block second degree Status post biventricular pacemaker with physiologic septal pacing/His bundle pacing Plan Discharge home after completion of IV antibiotics and device interrogation and chest x-ray Follow up in the device clinic in 5 days Follow-up with Dr. Posada in about 3 months Hold Coumadin for one day only that is today and resume tomorrow Continue all other medications unchanged Patient may go home today after completion of IV antibiotics Patient Condition at Discharge: Stable Plan - Discharge Summary Discharge Rx Participant: No New Discharge Prescriptions: Continue RX: hydrALAZINE HCL [Apresoline] 50 mg PO BID RX: Losartan/Hydrochlorothiazide [Hyzaar 100-25 Tablet] 1 tab PO DAILY RX: Aurora-3 Fatty Acids/Fish Oil [Fish Oil 1,000 mg Softgel] 2 each PO DAILY #0 RX: Aspirin 81 mg PO DAILY RX: Red Yeast Rice 300 mg PO DAILY RX: Folic Acid 1 mg PO DAILY RX: Cholecalciferol (Vitamin D3) [Vitamin D3] 2,000 unit PO DAILY RX: Multivitamin,Therapeutic [Thera] 1 tab PO DAILY RX: Baclofen [Lioresal] 10 mg PO BID RX: Warfarin [Coumadin] 7.5 mg PO [facility] RX: Omeprazole 20 mg PO DAILY #30 tablet. RX: Warfarin Sodium [Coumadin] 2.5 mg PO WE Discharge Medication List RX: Aspirin 81 mg PO DAILY 03/05/14 [History] RX: Losartan/Hydrochlorothiazide [Hyzaar 100-25 Tablet] 1 tab PO DAILY 03/05/14 [History] RX: Aurora-3 Fatty Acids/Fish Oil [Fish Oil 1,000 mg Softgel] 2 each PO DAILY #0 03/05/14 [History] RX: Red Yeast Rice 300 mg PO DAILY 03/05/14 [History] RX: hydrALAZINE HCL [Apresoline] 50 mg PO BID 03/05/14 [History] RX: Folic Acid 1 mg PO DAILY 06/17/14 [History] RX: Cholecalciferol (Vitamin D3) [Vitamin D3] 2,000 unit PO DAILY 03/20/18 [ History] RX: Baclofen [Lioresal] 10 mg PO BID 03/31/18 [History] RX: Multivitamin,Therapeutic [Thera] 1 tab PO DAILY 03/31/18 [History] RX: Warfarin [Coumadin] 7.5 mg PO SUMOTUTHFRSA 03/31/18 [History] RX: Omeprazole 20 mg PO DAILY #30 tablet. 04/01/18 [Rx] RX: Warfarin Sodium [Coumadin] 2.5 mg PO WE 05/15/18 [History] Follow up Appointment(s)/Referral(s): Alessandro Jones MD [STAFF PHYSICIAN] - 1 Week (Device clinic follow-up in [address] Posada in 4-6 months or as previously scheduled) Activity/Diet/Wound Care/Special Instructions: PATIENT EDUCATION MATERIAL Instructions following a heart rhythm device implant. 1. Keep dressing DRY for 5 DAYS. You may cover the area with Saran or Cling Wrap, prior to a shower. 2. The dressing will be removed in the Device Clinic at [facility]. Absorbable sutures were used to close the wound. 3. Avoid raising the left arm above the shoulder level. 4 week restriction 4. Avoid arm movements, like backscratching, rubbing the head, or pulling on a cord. 4 weeks restriction 5. Gentle range of motion movements of the shoulder, closest to the incision should be performed to avoid a frozen shoulder. (Pendulum exercises of the shoulder) 6. The opposite arm may be used freely. 7. Avoid driving for 7 days. 8. Avoid activities such as golfing, swimming, weed whacking, lifting more than 10 pounds weight, bowling, gymnastics and weight training/lifting. (6 weeks restriction) 9. Activities such as wood chopping with an axe, pull-ups in the gymnasium, power lifting, arc-welding, being close to home induction cooktops will always be a problem. 10. Arm sling is only a reminder not to raise the arm above the head. You do not need to keep the arm completely immobilized. Your free to move the arm and use it and for normal activities. In case of any problems, please call [facility], [place], @ [phone], Attention: Device Clinic Device clinic follow-up in 5 days Follow-up with primary equipment hire manager in 3-4 months Discharge Disposition: HOME SELF-CARE
[2018-05-21] MEDS ORDERED: LOSARTAN-HCTZ 50-12.5 MG 1 EACH TAB PO SCH (09:00)
--- NOTE | 2018-05-21 09:31 | XR ---
EXAMINATION TYPE: XR chest 2V DATE OF EXAM: 05/21/2018 COMPARISON: Prior chest x-ray 03/31/2018 HISTORY: Lead placement check TECHNIQUE: Frontal and lateral views of the chest are obtained. FINDINGS: There is been placement of a generator in the left pectoral region, there are leads in the right atrium and ventricle. Overlying loop recorder is present. No pneumothorax or pleural effusion. Prominent lung volume may be indicative of underlying COPD. There are coronary artery calcifications . The aorta is dense. Prominence of the pulmonary artery noted as on prior. IMPRESSION: No evident complication status post lead placement.
[2018-05-21 11:49] VITALS: BP 159/85; PULSE 66; TEMP 97.5
== END 2018-05-21 13:08 | disposition home or self-care (01) ==
LOC: CATHEP 09:49 → 1SOBS 15:07 → CATHEP 05-21 13:08
PROVIDERS: ATTEND Internal Medicine Clinical Cardiac Electrophysiology
DX: I49.5 Sick sinus syndrome (principal); I48.0 Paroxysmal atrial fibrillation; I44.1 Atrioventricular block, second degree; Z91.040 Latex allergy status
CPT/HCPCS: 33225; 33208; 85610; 71046; C1769; C1892; C1898; C2621; J2250; J0690 ×3; J2001; J3010; J2704; Q9967

== ENCOUNTER 2019-02-09 06:39 | Day surgery (SDC) | payer MEDICARE, OTHER ==
[~2019-02-09 06:39] MED LIST changes: +ALPRAZolam 0.25 MG TAB PO PRN; +ALPRAZolam 0.5 MG TAB PO PRN; +ASPIRIN 325 MG TAB PO STA; +ATORVASTATIN 80 MG TAB PO STA; -LIDOCAINE 1% 20 ML VIAL (10MG/ML) FOR IV START INTRADERMA PRN; +NITROGLYCERIN SL TABS 0.4 MG TAB SUBLINGUAL PRN; +SODIUM CHLORIDE 0.9% 1,000 ML in EMPTY BAG 1 BAG IV ONE; -ceFAZolin 1,000 MG in SODIUM CHLORIDE 0.9% IRRIGATIO 250 ML IRRIGATION ONE; -ceFAZolin IN SWFI 2 GM/20 ML SYRINGE IVP ONE
[2019-02-09] MEDS ORDERED: fentaNYL (PF) 50 MCG/ML 2 ML AMP ONE (07:20)
[2019-02-09] MEDS: BENZOCAINE SPRAY 1 CAN MUCOUS MEM ONE ×2 (07:35→07:41)
[2019-02-09 07:41] LABS: INR 1.4 (<1.2); Prothrombin Time 13.9 sec (9.0-12.0)
[2019-02-09] MEDS ORDERED: fentaNYL (PF) 50 MCG/ML 2 ML AMP IV ONE (07:45)
[2019-02-09] MEDS ORDERED: MIDAZOLAM 2 MG/2 ML VIAL IV ONE (07:45)
[2019-02-09] MEDS ORDERED: IV FLUID CONTINUATION 150 ML IV ONE (08:06)
[2019-02-09] MEDS ORDERED: LIDOCAINE 1% INJ 10MG/ML (20 ML MDV) ONE (08:09)
--- NOTE | 2019-02-09 08:17 | P.TEE ---
Indications for Procedure(s): Aortic stenosis Date of Procedure: 02/09/19 Preoperative Diagnosis: Severe aortic stenosis Postoperative Diagnosis: Moderate to severe aortic stenosis. Moderate aortic regurgitation. Clot in the left atrial appendage Procedure(s) Performed: ELY Description of Procedure(s): INDICATION: Aortic stenosis and regurgitation and symptoms of shortness of breath CONSENT:. Verbal consent is obtained from the patient and family PROCEDURE:. This patient was brought to the lab in a fasting state. He was prepped and draped in the usual fashion. The throat was sprayed with Cetacaine. Patient was given IV Versed 2 mg and the 50 g of fentanyl. A lubricated Omni probe was introduced into the oropharynx and was advanced into the esophagus without difficulty. Multiple views were obtained from esophagus and also stomach. Patient tolerated the procedure well. Color, pulsed and continuous wave Doppler studies were performed. Saline contrast bubble injection also performed. Patient tolerated the procedure well. No immediate complications FINDINGS:. The aortic valve shows sclerosis with reduced opening discussion. By planimetry valve area of about 0.8 was obtained. A peak gradient of about 40 and the mean of about 20 was obtained suggestive of moderate aortic stenosis. There is moderate central aortic regurgitation. The mitral valve showed evidence of mild prolapse and mild regurgitation. Tricuspid valve showed mild to moderate regurgitation. The interatrial septum appeared to be intact without any spontaneous shunt. Contrast saline bubble injection did not reveal any crossing of bubbles. Left atrial appendage appeared to show echo dense areas suggestive of clot. There is smoke in the left atrial appendage and the left atrium. The left ventricular function appeared to be preserved IMPRESSION: #1. Moderate to severe aortic stenosis. #2. Moderate aortic regurgitation #3. Mild mitral regurgitation and mild prolapse #4. Mild to moderate tricuspid regurgitation. #6. Intact interatrial septum. #7. Possible clot in the left atrial appendage. #8 preserved LV function #6. Minimal plaque in the aorta PLAN: Continue medical therapy. Continue with cardiac catheterization. Further recommendations depend upon the findings on the tests
[2019-02-09] MEDS ORDERED: VERAPAMIL 2.5 MG/ML 2 ML AMP ONE (08:18)
[2019-02-09] MEDS ORDERED: LIDOCAINE 1% INJ 10MG/ML (20 ML MDV) SQ ONE (08:29)
[2019-02-09] MEDS ORDERED: IOPAMIDOL-370 125ML BTL INJ ONE (08:54)
[2019-02-09] MEDS ORDERED: RX INFO: IV CONTRAST WAS GIVEN 1 EACH MISC MISCELLANE PRN (09:01)
--- NOTE | 2019-02-09 09:08 | P.CARDCATH ---
Date of Procedure: 02/09/19 Preoperative Diagnosis: Aortic stenosis and shortness of breath Postoperative Diagnosis: Moderate aortic stenosis and moderate aortic regurgitation. Ectatic coronary vessels without any critical lesions Procedure(s) Performed: Left heart catheterization without left ventriculography Description of Procedure: HISTORY: [] CONSENT:I have discussed the risks, benefits and alternative therapies for the above-mentioned procedure and for both sedation/analgesia as well as necessary blood product administration, if indicated, as they pertain to this patient. The patient has indicated understanding and acceptance of the risks and procedures discussed. [] PROCEDURE: Patient was brought to the lab in a fasting state. Patient was given some IV sedation. The right groin is infiltrated with lidocaine and right femoral artery was entered using Seldinger technique. A 6-Spanish catheter was left in place and selective coronary arteriography was performed. Patient tolerated the procedure well. Femoral angiogram was performed and manual compression was applied for hemostasis. No immediate complications were noted and patient was transferred to [facility] in a stable condition Conscious Sedation: Versed []mg.patient got sedation during ELY procedure. No further sedation is given in the r&d lab technician Fentanyl [] g Duration 25minutes HEMODYNAMICS: The aortic pressure is about 130/70. Left ventricle end-diastolic pressure was not measured and the aortic valve was not crossed SELECTIVE CORONARY ARTERIOGRAPHY: LEFT MAIN: Relatively short and free of occlusive disease THE LEFT ANTERIOR DESCENDING CORONARY ARTERY:. This a moderate caliber vessel giving rise to moderate-sized diagonal branch. The LAD and its branches are free of any significant occlusive disease THE LEFT CIRCUMFLEX AND IS CORONARY ARTERY:. This is a dominant vessel and large in size. It has diffuse ectatic changes. The PLV branch which is very small in caliber with mild disease THE RIGHT CORONARY ARTERY: Nondominant vessel free of any occlusive disease LEFT VENTRICULOGRAPHY: Not performed FINAL IMPRESSION: Ectatic coronary vessels without any significant focal lesions. Mild disease in the distal circumflex PLAN: Continuation medical therapy. Aortic stenosis by ELY examinatio, Doesn't appear to be critical PROGNOSIS: Fair
[2019-02-09 10:43] VITALS: BMI 24.5
[2019-02-09 11:17] LABS: HCT 41.2 % (39.0-53.0); HGB 13.4 gm/dL (13.0-17.5); MCH 30.2 pg (25.0-35.0); MCHC 32.6 g/dL (31.0-37.0); MCV 92.5 fL (80.0-100.0); Mean Platelet Volume 7.7; Platelet Count 134 k/uL (150-450); RBC 4.45 m/uL (4.30-5.90); RDW 14.1 % (11.5-15.5); WBC 4.2 k/uL (3.8-10.6)
[2019-02-09] MEDS: SODIUM CHLORIDE 0.9% 1,000 ML IV SCH ×2 (15:25→21:35)
[2019-02-09] MEDS ORDERED: WARFARIN 7.5 MG TAB PO SCH (18:00)
[2019-02-09 19:07] VITALS: RESP 18
[2019-02-09] MEDS ORDERED: hydrALAZINE HCL 25 MG TAB PO STA (20:45)
[2019-02-09] MEDS: BACLOFEN 10 MG TAB PO SCH (21:35)
[2019-02-10 05:35] LABS: INR 1.3 (<1.2); Prothrombin Time 13.2 sec (9.0-12.0)
[2019-02-10] MEDS: BACLOFEN 10 MG TAB PO SCH (08:06)
[2019-02-10] MEDS ORDERED: ENOXAPARIN 80 MG/0.8 ML SYRINGE SQ STA (08:51)
[2019-02-10] MEDS ORDERED: CHOLECALCIFEROL 1,000 UNIT TAB PO SCH (09:00)
[2019-02-10] MEDS ORDERED: ASPIRIN 81 MG PO SCH (09:00)
[2019-02-10] MEDS ORDERED: HYDROCHLOROTHIAZIDE 25 MG TAB PO SCH (09:00)
[2019-02-10] MEDS ORDERED: FOLIC ACID 1 MG TAB PO SCH (09:00)
[2019-02-10] MEDS ORDERED: MULTIVITAMINS, THERA 1 EACH TAB PO SCH (09:00)
[2019-02-10] MEDS ORDERED: LOSARTAN 50 MG TAB PO SCH (09:00)
[2019-02-10 11:12] VITALS: BP 137/90; PULSE 85; TEMP 97.4
[2019-02-10] MEDS ORDERED: WARFARIN 5 MG TAB PO SCH (18:00)
== END 2019-02-10 13:18 | disposition home or self-care (01) ==
LOC: CATHCVL 06:39 → 1SOBS 09:22 → CATHCVL 02-10 13:18
PROVIDERS: ATTEND Internal Medicine Cardiovascular Disease
DX: I08.3 Combined rheumatic disorders of mitral, aortic and tricuspid valves (principal); I25.10 Atherosclerotic heart disease of native coronary artery without angina pectoris; I10 Essential (primary) hypertension; Z72.0 Tobacco use; Z95.0 Presence of cardiac pacemaker; E78.5 Hyperlipidemia, unspecified; E11.9 Type 2 diabetes mellitus without complications; Z86.73 Personal history of transient ischemic attack (TIA), and cerebral infarction without residual deficits; I48.19 Other persistent atrial fibrillation; Z79.01 Long term (current) use of anticoagulants; Z79.82 Long term (current) use of aspirin; Z79.899 Other long term (current) drug therapy; Z88.2 Allergy status to sulfonamides; Z88.8 Allergy status to other drugs, medicaments and biological substances
CPT/HCPCS: 93312; 93320; 93325; 93454; 85027; 85610 ×2; C1769 ×6; C1894 ×2; J2250; J2001; J3010; J1650; Q9967

== ENCOUNTER 2019-11-09 12:34 | Emergency (ER) | payer MEDICARE, OTHER ==
[2019-11-09 12:45] VITALS: BP 129/90; PULSE 84; RESP 16; TEMP 98.4
--- NOTE | 2019-11-09 13:07 | ED ---
General Adult HPI - General Chief complaint: Abdominal Pain Stated complaint: Groin pain Time Seen by Provider: 11/09/19 12:38 Source: patient, family, RN notes reviewed Mode of arrival: EMS Limitations: no limitations - History of Present Illness Initial comments: Patient is a pleasant 79-year-old male presenting to the emergency Department with left inguinal pain. Onset of symptoms was this morning. Discomfort has been waxing and waning and is becoming moderate. Patient has known hernia. Patient sometimes is able to reduce it however today he was not. No fever. No vomiting. Patient has not seen a surgeon regarding his hernias. - Related Data Home Medications Medication Instructions Recorded Confirmed [place]-3 Fatty Acids/Fish Oil [Fish 1 each PO BID #0 03/05/14 02/09/19 Oil 1,000 mg Softgel] hydrALAZINE HCL [Apresoline] 50 mg PO BID 03/05/14 02/09/19 Folic Acid 1 mg PO DAILY 06/17/14 02/09/19 Cholecalciferol (Vitamin D3) 1,000 unit PO DAILY 03/20/18 02/09/19 [Vitamin D3] Baclofen [Lioresal] 10 mg PO BID 03/31/18 02/09/19 Multivitamin,Therapeutic [Thera] 1 tab PO DAILY 03/31/18 02/09/19 Warfarin [Coumadin] 7.5 mg PO MOFR 03/31/18 02/09/19 Acetaminophen with Codeine 1 tab PO BID 02/04/19 02/09/19 [Tylenol w/codeine #3] Losartan Potassium 100 mg PO DAILY 02/04/19 02/09/19 Red Yeast Rice Tab 120 mg PO BID 02/04/19 02/09/19 Warfarin [Coumadin] 5 mg PO SUTUWETHSA 02/04/19 02/09/19 hydroCHLOROthiazide 25 mg PO DAILY 02/04/19 02/09/19 Previous Rx's Medication Instructions Recorded Aspirin 81 mg PO DAILY chew 02/10/19 Enoxaparin [Lovenox] 75 mg SQ Q12H #6 syringe 02/10/19 Allergies Allergy/AdvReac Type Severity Reaction Status Date / Time latex Allergy Rash/Hives Verified 11/09/19 12:45 Sulfa (Sulfonamide Allergy Swelling Verified 11/09/19 12:45 Antibiotics) Ciualpq-Ink-Hwb Reductase AdvReac Unknown Verified 11/09/19 12:45 Inhibitor ELASTIC Allergy Rash/Hives Uncoded 11/09/19 12:45 Review of Systems ROS Statement: Those systems with pertinent positive or pertinent negative responses have been documented in the HPI. ROS Other: All systems not noted in ROS Statement are negative. Constitutional: Denies: fever Eyes: Denies: eye pain ENT: Denies: ear pain Respiratory: Denies: cough Cardiovascular: Denies: chest pain Endocrine: Denies: fatigue Gastrointestinal: Denies: abdominal pain Genitourinary: Reports: as per HPI. Denies: testicular pain Musculoskeletal: Denies: back pain Skin: Denies: rash Neurological: Denies: weakness Past Medical History Past Medical History: Cancer, CVA/TIA, Diabetes Mellitus, Hyperlipidemia, Osteoarthritis (OA) Additional Past Medical History / Comment(s): TIA 0ct2012, see Dr Gregory H&P, "borderline diabetic-diet control", skin cancer on face History of Any Multi-Drug Resistant Organisms: None Reported Past Surgical History: Coronary Bypass/CABG, Pacemaker, Prostate Surgery Additional Past Surgical History / Comment(s): HYDROCELE REPAIR, TURP, has a loop recorder(not functioning) Past Anesthesia/Blood Transfusion Reactions: No Reported Reaction Type of Cardiac Device: Permanent Pacemaker Device Placement Date:: unknown Past Psychological History: No Psychological Hx Reported Smoking Status: Heavy tobacco smoker Past Alcohol Use History: None Reported Past Drug Use History: None Reported - Past Family History Mother Family Medical History: No Reported History Additional Family Medical History / Comment(s): alzheimers General Exam Limitations: no limitations General appearance: alert, in no apparent distress Head exam: Present: normocephalic Eye exam: Present: normal appearance Neck exam: Present: normal inspection Respiratory exam: Present: normal lung sounds bilaterally Cardiovascular Exam: Present: regular rate, normal rhythm GI/Abdominal exam: Present: soft, normal bowel sounds, hernia (left Inguinal hernia approximately 3 cm with mild tenderness). Absent: distended, tenderness, pulsatile mass exam: Absent: testicular tenderness, scrotal swelling Extremities exam: Present: normal inspection Neurological exam: Present: alert Psychiatric exam: Present: normal affect, normal mood Skin exam: Present: normal color Course Vital Signs 11/09/19 12:42 Temperature 98.4 F Pulse Rate 84 Respiratory 16 Rate Blood Pressure 129/90 O2 Sat by Pulse 98 Oximetry Procedures - Procedures Initial comment: Verbal consent given. Reduction of left inguinal hernia with direct manipul ation. Hernia was reduced and approximately 30 seconds. No Complication. Patient had resolution of symptoms Medical Decision Making - Medical Decision Making Patient reevaluated and remained symptom-free. Disposition Clinical Impression: Left inguinal hernia Disposition: HOME SELF-CARE Condition: Stable Instructions (If sedation given, give patient instructions): Inguinal Hernia (ED) Additional Instructions: Please follow-up with primary care physician in the next day or 2 for recheck. Please also follow-up with surgeon. Return for increased pain, unable to reduce hernia, fevers, vomiting, worsening or change in symptoms or other concerns. Is patient prescribed a controlled substance at d/c from ED?: No Referrals: Juan Blank MD [Primary Care Provider] - 1-2 days Nakul Bedolla MD [STAFF PHYSICIAN] - 1-2 days Time of Disposition: 13:07
== END 2019-11-09 13:37 | disposition home or self-care (01) ==
LOC: EC 12:34
DX: K40.90 Unilateral inguinal hernia, without obstruction or gangrene, not specified as recurrent (principal); F17.200 Nicotine dependence, unspecified, uncomplicated; E78.5 Hyperlipidemia, unspecified; M19.90 Unspecified osteoarthritis, unspecified site; Z79.01 Long term (current) use of anticoagulants; Z79.899 Other long term (current) drug therapy; Z88.2 Allergy status to sulfonamides; Z88.8 Allergy status to other drugs, medicaments and biological substances; Z91.040 Latex allergy status; Z91.048 Other nonmedicinal substance allergy status; Z86.73 Personal history of transient ischemic attack (TIA), and cerebral infarction without residual deficits; Z85.828 Personal history of other malignant neoplasm of skin; Z95.5 Presence of coronary angioplasty implant and graft; Z95.0 Presence of cardiac pacemaker; Z98.890 Other specified postprocedural states
CPT/HCPCS: 99284

== ENCOUNTER → 2020-01-11 | Outpatient (CLI) | payer MEDICARE, OTHER ==
[2020-01-11 14:38] LABS: HCT 47.2 % (39.0-53.0); HGB 15.5 gm/dL (13.0-17.5); MCH 31.2 pg (25.0-35.0); MCHC 32.8 g/dL (31.0-37.0); Mean Platelet Volume 8.4; Platelet Count 144 k/uL (150-450); RBC 4.97 m/uL (4.30-5.90); RDW 12.6 % (11.5-15.5); WBC 4.9 k/uL (3.8-10.6)
[2020-01-11 14:43] LABS: African American GFR (CKD) >90 (>60 ml/min/1.73 sqM); Blood Urea Nitrogen 25 mg/dL (9-20); Magnesium 1.9 mg/dL (1.6-2.3); Non-African American GFR(CKD) 86 (>60 ml/min/1.73 sqM)
== END | disposition home or self-care (01) ==
LOC: LABPAT 12:01
PROVIDERS: ATTEND Internal Medicine
DX: Z01.818 Encounter for other preprocedural examination (principal); I48.19 Other persistent atrial fibrillation
CPT/HCPCS: 36415; 82565; 83735; 84520; 85027

== ENCOUNTER 2020-01-13 10:43 | Day surgery (SDC) | payer MEDICARE, OTHER ==
[2020-01-08 14:02] VITALS: BMI 23.6
[~2020-01-13 10:43] MED LIST changes: +ASPIRIN 325 MG TAB PO ONE; -ASPIRIN 325 MG TAB PO STA; +ATORVASTATIN 80 MG TAB PO ONE; -ATORVASTATIN 80 MG TAB PO STA
[2020-01-13] MEDS ORDERED: SODIUM CHLORIDE 0.9% 1,000 ML IV ONE (10:53)
[2020-01-13 11:18] LABS: Glucose,Whole Blood 97 mg/dL (75-99)
[2020-01-13 11:24] VITALS: TEMP 98
[2020-01-13] MEDS ORDERED: fentaNYL (PF) 50 MCG/ML 2 ML AMP ONE (11:25)
[2020-01-13] MEDS: BENZOCAINE SPRAY 1 CAN TOPICAL ONE ×2 (11:43→11:53)
[2020-01-13] MEDS ORDERED: HEPARIN SODIUM 1,000 UN/ML (10ML VL) ONE (11:48)
[2020-01-13] MEDS ORDERED: LIDOCAINE 1% INJ 10MG/ML (20 ML MDV) ONE (11:51)
[2020-01-13] MEDS ORDERED: VERAPAMIL 2.5 MG/ML 2 ML AMP ONE (11:51)
[2020-01-13] MEDS ORDERED: fentaNYL (PF) 50 MCG/ML 2 ML AMP IVP ONE (11:53)
[2020-01-13] MEDS ORDERED: MIDAZOLAM 2 MG/2 ML VIAL IVP ONE (11:53)
[2020-01-13 11:56] LABS: INR 1.5 (<1.2); Prothrombin Time 14.4 sec (9.0-12.0)
[2020-01-13] MEDS ORDERED: IV FLUID CONTINUATION 1,000 ML IV ONE (11:59)
[2020-01-13] MEDS ORDERED: LIDOCAINE 1% INJ 10MG/ML (20 ML MDV) SQ ONE (12:35)
[2020-01-13] MEDS: VERAPAMIL SYRINGE (5 MG/10 ML) INTRAARTER ONE ×2 (12:38→12:58)
[2020-01-13 12:42] VITALS: RESP 16
[2020-01-13] MEDS ORDERED: HEPARIN SODIUM 1,000 UN/ML (10ML VL) IV ONE (12:45)
[2020-01-13] MEDS ORDERED: IOPAMIDOL-370 125ML BTL INJ ONE (13:01)
[2020-01-13] MEDS ORDERED: RX INFO: IV CONTRAST WAS GIVEN 1 EACH MISC MISCELLANE PRN (13:12)
[2020-01-13] MEDS ORDERED: SODIUM CHLORIDE 0.9% 1,000 ML IV SCH (13:15)
--- NOTE | 2020-01-13 13:31 | P.TEE ---
Indications for Procedure(s): Moderate to severe aortic stenosis Date of Procedure: 01/13/20 Description of Procedure(s): Procedure performed: Transesophageal Echocardiogram, moderate conscious sedation Moderate conscious sedation: Moderate conscious sedation was supplied with direct supervision of myself using Versed and Fentanyl. Complications: none Indications: Moderate to severe aortic stenosis History: Patient is a pleasant 79-year-old male with history of atrial fibrillation on Coumadin, hypertension, hyperlipidemia, sick sinus syndrome status post permanent pacemaker and aortic stenosis. He has been evaluated for aortic stenosis in the past with prior echocardiogram showing moderate to severe aortic stenosis. He is fairly asymptomatic however daughter admits that he does not do as much as he once did. He does admit to mildly slowing down however denies any shortness of breath, chest pain or lightheadedness. His last echo showed aortic stenosis with Vmax 3.2 m/s however severe aortic stenosis by continuity equation. I was asked to perform ELY to further evaluate. PROCEDURE: After the risks, benefits and alternatives of the above mentioned procedure was explained in detail with the patient, informed consent was obtained. Patient was brought to the lab in a fasting state. Patient was given IV Versed and Fentanyl for sedation. The throat was sprayed with Hurricane to anesthetize the throat. A lubricated Omni probe was then introduced into the esophagus and stomach and multiple views were obtained. Agitated saline bubbles were injected to assess for any intra-atrial shunt. The probe was then removed. Patient tolerated the procedure well. Patient was transferred to the post procedure area in stable and satisfactory condition. FINDINGS: 1. The aortic valve is tricuspid and heavily calcified with decreased cusp motion. Aortic valve area by planimetry is 0.9 cm. V-max measured at 3.34 m/s with a mean gradient 22 mmHg. Dimensionless index calculated at 0.15 consistent with severe aortic stenosis. There is mild to moderate central aortic insufficiency. 2. The mitral valve appears be normal with mild to moderate mitral regurgitation. 3. Tricuspid valve appears to be normal with mild tricuspid regurgitation. 4. The interatrial septum is intact. No evidence of PFO. 5. Left atrial appendage is free of clot. There is diffuse smoke noted in the left atrium. Left upper pulmonary vein shows mild systolic blunting with no reversal. 6. Left ventricular size and function appear to be low normal with ejection fraction 50% without wall motion abnormality. Conclusions: 1. Severe aortic stenosis by planimetry and dimensionless index however with Vmax of 3.34m/s likely related to poor angles. 2. Low normal ejection fraction 50%. 3. Mild to moderate central aortic insufficiency.
--- NOTE | 2020-01-13 13:35 | P.CARDCATH ---
Date of Procedure: 01/13/20 Description of Procedure: PROCEDURES PERFORMED: bilateral coronary angiography INDICATION: Severe aortic stenosis HISTORY: Patient is a pleasant 79-year-old male with history of atrial fibrillation, sick sinus syndrome status post pacemaker, hypertension, hyperlipidemia, and moderate to severe aortic stenosis who is referred secondary to recent echo concerning for severe aortic stenosis. CONSENT:I have discussed the risks, benefits and alternative therapies for the above-mentioned procedure and for both sedation/analgesia as well as necessary blood product administration, if indicated, as they pertain to this patient. The patient has indicated understanding and acceptance of the risks and proced ures discussed. PROCEDURE: After the risks, benefits and alternatives of the above mentioned procedure explained in detail with the patient, informed consent was obtained. Patient was taken to the catheterization lab and prepped and draped in usual fashion. 1% lidocaine was used to anesthetize the right radial artery. A 6- Swazi sheath was placed in the right radial artery using modified Seldinger technique. Left coronary angiography was performed with a 5-Swazi JL 4 catheter and right coronary angiography was performed with a 5-Swazi JR5 catheter in various views. The right radial sheath was removed and a TR band was placed with hemostasis achieved. The patient tolerated the procedure well. Patient was transported back to the post catheterization holding area in stable condition. Conscious Sedation: Patient was monitored under the direct supervision of vision of myself for conscious sedation using Versed and fentanyl for a total duration of 28 minutes HEMODYNAMICS: Aortic: 126/70 SELECTIVE CORONARY ARTERIOGRAPHY: LEFT MAIN: The left main is a large caliber vessel which bifurcates into the LAD and circumflex. There is no significant stenosis. LEFT ANTERIOR DESCENDING CORONARY ARTERY: LAD is a large caliber vessel which wraps around to the apex. There are mild luminal irregularities with up to 20- 30% stenosis of the LAD and diagonal 1. LEFT CIRCUMFLEX CORONARY ARTERY: The left circumflex is very large and ectatic and is dominant. There is a proximal 30% stenosis. There is distant 30% stenosis before the PDA. RIGHT CORONARY ARTERY: The right coronary artery is a small caliber vessel which gives off a RV branch and is non dominant vessel. There are mild luminal irregularities FINAL IMPRESSION: 1. Mild CAD as noted above with ectatic dominant left circumflex. PLAN: 1. Aggressive risk factor modification per most recent ACC/AHA guidelines. 2. Follow-up in the office in 1-2 weeks.
[2020-01-13 17:52] VITALS: BP 99/59; PULSE 77
--- NOTE | 2020-01-15 07:19 | CDI ---
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 Please respond to the clarification below the line at the bottom and electronically sign. The [facility] Coding staff will review the response and follow-up if needed. Please note: Queries are made part of the Legal Health Record. If you have any questions, please contact the Photography Editor. Dear Dr. Young In order to code to the greatest specificity and for the greatest reimbursement I need the following information: You have documented in your ELY that the probe was utilized, but there is no mention of the pulse wave or color flow being utilized. Please specify what was utilized so the correct charges can be charged. Thank you for your kind consideration. Pulse wave and colow flow doppler was utilized throughout the procedure. JOHNNY
== END 2020-01-13 16:30 | disposition home or self-care (01) ==
LOC: CATHCVL 10:43
PROVIDERS: ATTEND Internal Medicine
DX: I08.3 Combined rheumatic disorders of mitral, aortic and tricuspid valves (principal); I25.10 Atherosclerotic heart disease of native coronary artery without angina pectoris; I77.810 Thoracic aortic ectasia; I48.91 Unspecified atrial fibrillation; I10 Essential (primary) hypertension; E78.5 Hyperlipidemia, unspecified; I49.5 Sick sinus syndrome; Z91.040 Latex allergy status; Z79.01 Long term (current) use of anticoagulants; Z95.0 Presence of cardiac pacemaker
CPT/HCPCS: 93454; 93312; 93320; 93325; 85610; C1769 ×4; C1894; J2250; J2001; J3010; J1644; Q9967

== ENCOUNTER 2020-03-15 08:56 | Emergency (ER) | payer MEDICARE, OTHER ==
[2020-03-15] MEDS ORDERED: SODIUM CHLORIDE 0.9% 1,000 ML IV STA (09:21)
--- NOTE | 2020-03-15 09:26 | ED ---
Abdominal Pain HPI <Aldo Rose - Last Filed: 03/15/20 12:06> - General Source: patient, EMS, RN notes reviewed Mode of arrival: EMS Limitations: no limitations <Tj Centeno - Last Filed: 03/15/20 12:14> - General Chief Complaint: Abdominal Pain Stated Complaint: abd pain Time Seen by Provider: 03/15/20 09:02 - History of Present Illness Initial Comments: 79-year-old male presents emergency Department chief complaint of abdominal pain, hernia. Patient states that her last 6 months and which is slightly has worsened. Patient states that this morning the pain was unbearable states it was very firm, increased swelling. He states is slightly better at this time is also given fentanyl by EMS which helped. Patient has not been evaluated by general surgery. Patient states that his been having increased difficulty with bowel movements secondary to hernia he has no current nausea vomiting or fevers chills no chest pain or shortness breath. (Tj Centeno) - Related Data Home Medications Medication Instructions Recorded Confirmed [place]-3 Fatty Acids/Fish Oil [Fish 1 each PO BID #0 03/05/14 03/15/20 Oil 1,000 mg Softgel] hydrALAZINE HCL [Apresoline] 50 mg PO BID 03/05/14 03/15/20 Cholecalciferol (Vitamin D3) 1,000 unit PO DAILY 03/20/18 03/15/20 [Vitamin D3] Multivitamin,Therapeutic [Thera] 1 tab PO DAILY 03/31/18 03/15/20 Warfarin [Coumadin] 5 mg PO SUTUTHSA 02/04/19 03/15/20 Losartan Potassium 50 mg PO DAILY 03/15/20 03/15/20 Red Yeast Rice 600 mg PO DAILY 03/15/20 03/15/20 Warfarin [Coumadin] 7.5 mg PO MOWEFR 03/15/20 03/15/20 hydroCHLOROthiazide [Hydrodiuril] 25 mg PO DAILY 03/15/20 03/15/20 Previous Rx's Medication Instructions Recorded Aspirin 81 mg PO DAILY chew 02/10/19 Allergies Allergy/AdvReac Type Severity Reaction Status Date / Time latex Allergy Rash/Hives Verified 03/15/20 10:07 Sulfa (Sulfonamide Allergy Swelling Verified 03/15/20 10:07 Antibiotics) Ajocnus-Upz-Ieb Reductase AdvReac Unknown Verified 03/15/20 10:07 Inhibitor ELASTIC Allergy Rash/Hives Uncoded 03/15/20 10:07 Review of Systems ROS Other: All systems not noted in ROS Statement are negative. <Aldo Rose - Last Filed: 03/15/20 12:06> ROS Other: All systems not noted in ROS Statement are negative. <Tj Centeno - Last Filed: 03/15/20 12:14> ROS Statement: Those systems with pertinent positive or pertinent negative responses have been documented in the HPI. Past Medical History Past Medical History: Cancer, CVA/TIA, Diabetes Mellitus, Hyperlipidemia, Osteoarthritis (OA) Additional Past Medical History / Comment(s): TIA 0ct. 2012, states no residual effects, "borderline diabetic-diet control", hx skin cancer on face History of Any Multi-Drug Resistant Organisms: None Reported Past Surgical History: Heart Catheterization, Pacemaker, Prostate Surgery Additional Past Surgical History / Comment(s): HYDROCELE REPAIR, TURP, ELY, has a loop recorder(not functioning) Past Anesthesia/Blood Transfusion Reactions: No Reported Reaction Type of Cardiac Device: Permanent Pacemaker Device Placement Date:: 05/20/18 Past Psychological History: No Psychological Hx Reported Smoking Status: Heavy tobacco smoker Past Alcohol Use History: None Reported Past Drug Use History: None Reported - Past Family History Mother Family Medical History: No Reported History Additional Family Medical History / Comment(s): alzheimers <Tj Centeno - Last Filed: 03/15/20 12:14> General Exam Limitations: no limitations General appearance: alert, in no apparent distress Head exam: Present: atraumatic, normocephalic, normal inspection Eye exam: Present: normal appearance, PERRL, EOMI. Absent: scleral icterus, conjunctival injection, periorbital swelling ENT exam: Present: normal exam, normal oropharynx, mucous membranes moist Neck exam: Present: normal inspection, full ROM. Absent: tenderness, meningismus, lymphadenopathy Respiratory exam: Present: normal lung sounds bilaterally. Absent: respiratory distress, wheezes, rales, rhonchi, stridor Cardiovascular Exam: Present: regular rate, normal rhythm, normal heart sounds. Absent: systolic murmur, diastolic murmur, rubs, gallop, clicks GI/Abdominal exam: Present: soft, tenderness (Mild to moderate right), normal bowel sounds, hernia (Large right inguinal). Absent: distended, guarding, rebound, rigid Back exam: Absent: CVA tenderness (R), CVA tenderness (L) Neurological exam: Present: alert Skin exam: Present: warm, dry, intact, normal color. Absent: rash <Tj Centeno - Last Filed: 03/15/20 12:14> Course Vital Signs 03/15/20 03/15/20 03/15/20 09:03 10:07 11:30 Temperature 97.9 F 97.8 F Pulse Rate 81 60 64 Respiratory 16 18 20 Rate Blood Pressure 133/90 128/97 128/87 O2 Sat by Pulse 97 97 97 Oximetry Medical Decision Making - Lab Data Result diagrams: 03/15/20 10:22 03/15/20 10:22 <Aldo Rose - Last Filed: 03/15/20 12:06> - Lab Data Result diagrams: 03/15/20 10:22 03/15/20 10:22 <Tj Centeno - Last Filed: 03/15/20 12:14> - Medical Decision Making Patient reevaluated by myself, Dr. Rose. Patient resting comfortably in bed stating that he is symptom-free at this time. Patient does have moderate to large right-sided inguinal hernia that is soft and easily reducible without discomfort. Patient requesting discharge home. (Aldo Rose) Patient had CT which shows large inguinal hernia no obstruction. Patient was evaluated by Dr. Rose and was able to reduce majority of the hernia. Patient has no localized pain at this time. Patient discharged in stable condition re turn parameters discussed. (Tj Centeno) - Lab Data Lab Results 03/15/20 03/15/20 03/15/20 Range/Units 10:22 10:22 10:22 WBC 5.5 (3.8-10.6) k/uL RBC 4.43 (4.30-5.90) m/uL Hgb 14.5 (13.0-17.5) gm/dL Hct 42.2 (39.0-53.0) % MCV 95.2 (80.0-100.0) fL MCH 32.7 (25.0-35.0) pg MCHC 34.4 (31.0-37.0) g/dL RDW 13.3 (11.5-15.5) % Plt Count 129 L (150-450) k/uL MPV 8.6 Neutrophils % 73 % Lymphocytes % 16 % Monocytes % 6 % Eosinophils % 2 % Basophils % 1 % Neutrophils # 4.0 (1.3-7.7) k/uL Lymphocytes # 0.9 L (1.0-4.8) k/uL Monocytes # 0.3 (0-1.0) k/uL Eosinophils # 0.1 (0-0.7) k/uL Basophils # 0.1 (0-0.2) k/uL Sodium 138 (137-145) mmol/L Potassium 4.1 (3.5-5.1) mmol/L Chloride 108 H (98-107) mmol/L Carbon Dioxide 27 (22-30) mmol/L Anion Gap 3 mmol/L BUN 23 H (9-20) mg/dL Creatinine 0.68 (0.66-1.25) mg/dL Est GFR (CKD-EPI)AfAm >90 (>60 ml/min/1.73 sqM) Est GFR (CKD-EPI)NonAf 90 (>60 ml/min/1.73 sqM) Glucose 109 H (74-99) mg/dL Plasma Lactic Acid Apolinar (0.7-2.0) mmol/L Calcium 9.0 (8.4-10.2) mg/dL Total Bilirubin 1.2 (0.2-1.3) mg/dL AST 41 (17-59) U/L ALT 21 (4-49) U/L Alkaline Phosphatase 44 (38-126) U/L Total Protein 6.7 (6.3-8.2) g/dL Albumin 3.7 (3.5-5.0) g/dL Amylase 43 (30-110) U/L Lipase 57 (23-300) U/L Urine Color Yellow Urine Appearance Clear (Clear) Urine pH 5.5 (5.0-8.0) Ur Specific [place] 1.024 (1.001-1.035) Urine Protein Trace H (Negative) Urine Glucose (UA) Negative (Negative) Urine Ketones Trace H (Negative) Urine Blood Negative (Negative) Urine Nitrite Negative (Negative) Urine Bilirubin Negative (Negative) Urine Urobilinogen <2.0 (<2.0) mg/dL Ur Leukocyte Esterase Negative (Negative) 03/15/20 Range/Units 10:22 WBC (3.8-10.6) k/uL RBC (4.30-5.90) m/uL Hgb (13.0-17.5) gm/dL Hct (39.0-53.0) % MCV (80.0-100.0) fL MCH (25.0-35.0) pg MCHC (31.0-37.0) g/dL RDW (11.5-15.5) % Plt Count (150-450) k/uL MPV Neutrophils % % Lymphocytes % % Monocytes % % Eosinophils % % Basophils % % Neutrophils # (1.3-7.7) k/uL Lymphocytes # (1.0-4.8) k/uL Monocytes # (0-1.0) k/uL Eosinophils # (0-0.7) k/uL Basophils # (0-0.2) k/uL Sodium (137-145) mmol/L Potassium (3.5-5.1) mmol/L Chloride (98-107) mmol/L Carbon Dioxide (22-30) mmol/L Anion Gap mmol/L BUN (9-20) mg/dL Creatinine (0.66-1.25) mg/dL Est GFR (CKD-EPI)AfAm (>60 ml/min/1.73 sqM) Est GFR (CKD-EPI)NonAf (>60 ml/min/1.73 sqM) Glucose (74-99) mg/dL Plasma Lactic Acid Apolinar 0.9 (0.7-2.0) mmol/L Calcium (8.4-10.2) mg/dL Total Bilirubin (0.2-1.3) mg/dL AST (17-59) U/L ALT (4-49) U/L Alkaline Phosphatase (38-126) U/L Total Protein (6.3-8.2) g/dL Albumin (3.5-5.0) g/dL Amylase (30-110) U/L Lipase (23-300) U/L Urine Color Urine Appearance (Clear) Urine pH (5.0-8.0) Ur Specific [place] (1.001-1.035) Urine Protein (Negative) Urine Glucose (UA) (Negative) Urine Ketones (Negative) Urine Blood (Negative) Urine Nitrite (Negative) Urine Bilirubin (Negative) Urine Urobilinogen (<2.0) mg/dL Ur Leukocyte Esterase (Negative) Disposition <Aldo Rsoe - Last Filed: 03/15/20 12:06> Is patient prescribed a controlled substance at d/c from ED?: No Time of Disposition: 12:14 <Tj Centeno - Last Filed: 03/15/20 12:14> Clinical Impression: Inguinal hernia Disposition: HOME SELF-CARE Condition: Stable Instructions (If sedation given, give patient instructions): Inguinal Hernia (ED) Additional Instructions: Please return to the Emergency Department if symptoms worsen or any other concerns. Referrals: Juan Blank MD [Primary Care Provider] - 1-2 days Nakul Bedolla MD [STAFF PHYSICIAN] - 1-2 days
[2020-03-15 10:33] LABS: Basophils # (A) 0.1 k/uL (0-0.2); Basophils % (A) 1 %; Eosinophils # (A) 0.1 k/uL (0-0.7); Eosinophils % (A) 2 %; HCT 42.2 % (39.0-53.0); HGB 14.5 gm/dL (13.0-17.5); Lymphocytes # (A) 0.9 k/uL (1.0-4.8); Lymphocytes % (A) 16 %; MCH 32.7 pg (25.0-35.0); MCHC 34.4 g/dL (31.0-37.0); MCV 95.2 fL (80.0-100.0); Mean Platelet Volume 8.6; Monocytes # (A) 0.3 k/uL (0-1.0); Monocytes % (A) 6 %; Neutrophils % (A) 73 %; Platelet Count 129 k/uL (150-450); RBC 4.43 m/uL (4.30-5.90); RDW 13.3 % (11.5-15.5); WBC 5.5 k/uL (3.8-10.6)
[2020-03-15 10:48] LABS: ALT 21 U/L (4-49); AST 41 U/L (17-59); African American GFR (CKD) >90 (>60 ml/min/1.73 sqM); Albumin 3.7 g/dL (3.5-5.0); Alkaline Phosphatase 44 U/L (38-126); Amylase 43 U/L (30-110); Anion Gap 3 mmol/L; Blood Urea Nitrogen 23 mg/dL (9-20); Carbon Dioxide 27 mmol/L (22-30); Chloride 108 mmol/L (98-107); Glucose 109 mg/dL (74-99); Lipase 57 U/L (23-300); Non-African American GFR(CKD) 90 (>60 ml/min/1.73 sqM); Sodium 138 mmol/L (137-145); Total Bilirubin 1.2 mg/dL (0.2-1.3); Total Protein 6.7 g/dL (6.3-8.2)
[2020-03-15 10:51] LABS: Appearance,Urine Clear (Clear); Bilirubin,Urine Negative (Negative); Blood,Urine Negative (Negative); Color,Urine Yellow; Glucose,Urine (UA) Negative (Negative); Ketones,Urine Trace (Negative); Leukocyte Esterase,Urine Negative (Negative); Nitrite,Urine Negative (Negative); PH, Urine 5.5 (5.0-8.0); Protein,Urine Trace (Negative); Specific Gravity,Urine 1.024 (1.001-1.035); Urobilinogen,Urine <2.0 mg/dL (<2.0)
[2020-03-15 11:05] LABS: Potassium 4.1 mmol/L (3.5-5.1)
[2020-03-15 11:38] VITALS: BP 128/87; PULSE 64; RESP 20; TEMP 97.8
--- NOTE | 2020-03-15 11:43 | CT ---
EXAMINATION TYPE: CT abdomen pelvis w con DATE OF EXAM: 03/15/2020 COMPARISON: None. HISTORY: pelvic pain. Hernia. CT DLP: 962.8 mGycm, Automated Exposure Control for Dose Reduction was Utilized. CONTRAST: CT scan of the abdomen and pelvis is performed without oral but with IV Contrast, patient injected wi th 100 mL of Isovue 300. FINDINGS: LUNG BASES: Partial visualization of cardiomegaly with multi lead pacemaker and moderate right greate r than left atrial dilatation. There is moderate right ventricular dilatation. LIVER/GB: No significant abnormality is appreciated. PANCREAS: Fairly moderate to severe diffuse fat replaced atrophy. SPLEEN: No significant abnormality is seen. ADRENALS: Low dense thickening through both adrenal glands consistent with benign lipid rich hyperpla jennifer. KIDNEYS: Symmetrical medullary uptake and excretion without concerning hydronephrosis seen bilaterall y. There are a few scattered simple appearing thin-walled cyst in the left kidney. There is exophytic 9 mm lesion lower pole left kidney axial image 38 favoring small proteinaceous cyst but too small to further characterize. BOWEL: Slightly suboptimal evaluation of bowel without enteric contrast. No suspicious small or large bowel dilatation. There is right inguinal hernia containing nondilated ileal bowel loops. There is s mall amount of free fluid in the inferior portion of inguinal hernia. PROSTATE/SEMINAL VESICLES: Mildly enlarged prostate gland bulging of the bladder base. LYMPH NODES: No greater than 1cm abdominal or pelvic lymph nodes are appreciated. OSSEOUS STRUCTURES: Underlying levoconvex scoliosis. Grade 1 retrolisthesis L2 on L3. Moderate to sev ere disc space narrowing with some ossific fusion right L2-L3 levels. Additional moderate multilevel disc space narrowing. There is moderate to severe multilevel anterior and lateral spurring. There is multilevel spinous process hypertrophy. There is multilevel uncovertebral facet arthropathy mid to lo wer lumbar spine. Spinal canal stenosis noted L3-L4 level. Moderate narrowing both hip joints. OTHER: Moderate calcified plaque abdominal aorta extends into branch vessels. Tortuous course to the abdominal aorta. Partial visualization of moderate right scrotal fluid collection or hydrocele. IMPRESSION: There is a fairly large right inguinal hernia containing fat along with tiny mesenteric v essels and nonobstructed ileal bowel loop. There is small to moderate amount of inferior free fluid o f uncertain etiology. No acute findings identified.
[2020-03-15] MEDS ORDERED: ACET/COD 300 MG/30 MG STARTER PACK 6 TAB BTL PO STA (12:14)
== END 2020-03-15 12:42 | disposition home or self-care (01) ==
LOC: EC 08:56
DX: K40.90 Unilateral inguinal hernia, without obstruction or gangrene, not specified as recurrent (principal); F17.290 Nicotine dependence, other tobacco product, uncomplicated; Z79.01 Long term (current) use of anticoagulants; Z79.899 Other long term (current) drug therapy; Z91.040 Latex allergy status; Z88.2 Allergy status to sulfonamides; Z88.8 Allergy status to other drugs, medicaments and biological substances; Z91.048 Other nonmedicinal substance allergy status; Z85.828 Personal history of other malignant neoplasm of skin; Z86.73 Personal history of transient ischemic attack (TIA), and cerebral infarction without residual deficits
CPT/HCPCS: 36415; 80053; 82150; 83605; 83690; 85025; 81003; 74177; 99284; 96360; Q9967

== ENCOUNTER → 2022-01-22 | Outpatient (CLI) | payer MEDICARE, OTHER ==
[2022-01-22 23:56] LABS: HCT 45.7 % (39.6-50.0); HGB 15.3 g/dL (13.0-17.0); MCH 32.4 pg (27.0-32.0); MCHC 33.5 g/dL (32.0-37.0); MCV 96.8 fL (80.0-97.0); Mean Platelet Volume 13.3 fL (9.5-12.2); NRBC Per 100 WBC 0 /100 WBCS (0.0-0.0); Platelet Count 150 X 10*3/uL (140-440); RBC 4.72 X 10*6/uL (4.40-5.60); RDW 14.1 % (11.5-14.5); WBC 5.43 X 10*3/uL (4.50-10.00)
[2022-01-23 00:06] LABS: African American GFR (CKD) 86.2 (60.0-200.0); Anion Gap 7.9 mmol/L (10.00-18.00); Blood Urea Nitrogen 25.4 mg/dL (9.0-27.0); Carbon Dioxide 28.9 mmol/L (20.0-27.5); Non-African American GFR(CKD) 74.4 (60.0-200.0)
== END | disposition home or self-care (01) ==
LOC: LABPAT 15:12
PROVIDERS: ATTEND Internal Medicine
DX: Z01.812 Encounter for preprocedural laboratory examination (principal); I35.0 Nonrheumatic aortic (valve) stenosis; I25.10 Atherosclerotic heart disease of native coronary artery without angina pectoris
CPT/HCPCS: 80051; 82565; 84520; 85027

== ENCOUNTER → 2022-01-26 | Day surgery (SDC) | payer MEDICARE, OTHER ==
[~2022-01-26] MED LIST changes: -ASPIRIN 325 MG TAB PO ONE; +ASPIRIN 325 MG TAB PO STA; -ATORVASTATIN 80 MG TAB PO ONE; +ATORVASTATIN 80 MG TAB PO STA; +HEPARIN SODIUM 1,000 UN/ML (10ML VL) IV ONE; +HEPARIN SODIUM 1,000 UN/ML (10ML VL) ONE; +HEPARIN SODIUM,PORCINE 10,000 UNIT in SODIUM CHLORIDE 0.9% 1,000 ML IRRIGATION PRN; +HEPARIN SODIUM,PORCINE 2,500 UNIT in SODIUM CHLORIDE 0.9% 250 ML IRRIGATION PRN; +IOPAMIDOL-370 125ML BTL INJ ONE; +LIDOCAINE 1% INJ 10MG/ML (30 ML VIAL-PF) SQ ONE; +MIDAZOLAM 2 MG/2 ML VIAL IV ONE; -SODIUM CHLORIDE 0.9% 1,000 ML in EMPTY BAG 1 BAG IV ONE; +SODIUM CHLORIDE 0.9% 1,000 ML in EMPTY BAG 1 BAG IV SCH; +VERAPAMIL 2.5 MG/ML 2 ML AMP ONE; +VERAPAMIL SYRINGE (5 MG/10 ML) INTRAARTER ONE; +fentaNYL (PF) 50 MCG/ML 2 ML AMP IV ONE; +fentaNYL (PF) 50 MCG/ML 2 ML AMP ONE
[2022-01-26 08:50] VITALS: RESP 16; TEMP 98
[2022-01-26 10:05] LABS: O2 Sat Blood Gas 65.8 %
[2022-01-26 10:07] LABS: O2 Sat Blood Gas 94.4 %
[2022-01-26 10:08] LABS: O2 Sat Blood Gas 71.5 %
[2022-01-26 14:51] VITALS: BP 124/88; PULSE 52
--- NOTE | 2022-01-26 18:56 | P.CARDCATH ---
Description of Procedure: PROCEDURES PERFORMED: Right heart catheterization, bilateral coronary angiography INDICATION: Severe aortic stenosis CONSENT:I have discussed the risks, benefits and alternative therapies for the above-mentioned procedure and for both sedation/analgesia as well as necessary blood product administration, if indicated, as they pertain to this patient. The patient has indicated understanding and acceptance of the risks and procedures discussed. PROCEDURE: After the risks, benefits and alternatives of the above mentioned procedure explained in detail with the patient, informed consent was obtained. Patient was taken to the catheterization lab and prepped and draped in usual fashion. 1% lidocaine was used to anesthetize the right radial artery. A 6- [place]an sheath was placed in the right radial artery using modified Seldinger technique. Left coronary angiography was performed with a 5-Singaporean JL 3.5 catheter and right coronary angiography was performed with a 5-Singaporean JR5 catheter in various views. Using ultrasound guidance a 6-[place]an sheath was placed in the right brachial vein. A 6-Sing[place]an [place]-Don catheter was advanced into the right atrium, right ventricle, pulmonary artery and pulmonary capillary wedge positioning. Pressure measurements were obtained. PA and RA saturations were performed for Lennie calculations. Thermodilution was performed however appeared inaccurate and inconsistent. The [place]-Don catheter was then removed. The brachial sheath was pulled and manual pressure held. The right radial sheath was removed and a TR band was placed with hemostasis achieved. The patient tolerated the procedure well. Patient was transported back to the post catheterization holding area in stable condition. Conscious Sedation: Patient was monitored under the direct supervision of vision of myself for conscious sedation using Versed and fentanyl for a total duration of 38 minutes HEMODYNAMICS: Aorta: 112/67 PA: 32/4 (16) PCWP: 6 RV: 31/1 RA: 4 RA oxygen saturation: 72% PA oxygen saturation: 66% Right radial oxygen saturation 94% Cardiac output by Lennie calculation: 6.3 L/m Cardiac index by Lennie calculation: 3.2 L/m/m SELECTIVE CORONARY ARTERIOGRAPHY: LEFT MAIN: The left main is a large caliber vessel which bifurcates into the LAD and circumflex. There is no significant stenosis. LEFT ANTERIOR DESCENDING CORONARY ARTERY: LAD is a large caliber vessel which wraps around to the apex. There is a proximal diagonal 05/04/1929 percent stenosis in the mid LAD 20-30% stenosis of otherwise normal. LEFT CIRCUMFLEX CORONARY ARTERY: Left circumflex is a moderate caliber vessel however is aneurysmal of the proximal to distal circumflex. The circumflex is dominant and supplies the left PDA. There is a proximal 30% circumflex and a mid 30% circumflex stenosis and otherwise aneurysmal however no significant stenosis. RIGHT CORONARY ARTERY: The right coronary artery is a small caliber vessel which gives off an acute marginal branch and is nondominant. There is in the aneurysmal portion of the mid RCA however only mild luminal irregularities. FINAL IMPRESSION: 1. 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 Otherwise mild 20-30% mid LAD stenosis and 30% circumflex stenosis 3. Normal left and right sided filling pressures PLAN: 1. Aggressive risk factor modification per most recent ACC/AHA guidelines. 2. Follow-up in the office in 1-2 weeks.
--- NOTE | 2022-01-26 18:56 | P.CARDCATH ---
Description of Procedure: PROCEDURES PERFORMED: Right heart catheterization, bilateral coronary angiography INDICATION: Severe aortic stenosis CONSENT:I have discussed the risks, benefits and alternative therapies for the above-mentioned procedure and for both sedation/analgesia as well as necessary blood product administration, if indicated, as they pertain to this patient. The patient has indicated understanding and acceptance of the risks and procedures discussed. PROCEDURE: After the risks, benefits and alternatives of the above mentioned procedure explained in detail with the patient, informed consent was obtained. Patient was taken to the catheterization lab and prepped and draped in usual fashion. 1% lidocaine was used to anesthetize the right radial artery. A 6- Citizen Of [place] sheath was placed in the right radial artery using modified Seldinger technique. Left coronary angiography was performed with a 5-Citizen Of [place] JL 3.5 catheter and right coronary angiography was performed with a 5-Citizen Of [place] JR5 catheter in various views. Using ultrasound guidance a 6-Citizen [place] sheath was placed in the right brachial vein. A 6-Citizen Of [place]-Don catheter was advanced into the right atrium, right ventricle, pulmonary artery and pulmonary capillary wedge positioning. Pressure measurements were obtained. PA and RA saturations were performed for Lennie calculations. Thermodilution was performed however appeared inaccurate and inconsistent. The [place]-Don catheter was then removed. The brachial sheath was pulled and manual pressure held. The right radial sheath was removed and a TR band was placed with hemostasis achieved. The patient tolerated the procedure well. Patient was transported back to the post catheterization holding area in stable condition. Conscious Sedation: Patient was monitored under the direct supervision of vision of myself for conscious sedation using Versed and fentanyl for a total duration of 38 minutes HEMODYNAMICS: Aorta: 112/67 PA: 32/4 (16) PCWP: 6 RV: 31/1 RA: 4 RA oxygen saturation: 72% PA oxygen saturation: 66% Right radial oxygen saturation 94% Cardiac output by Lennie calculation: 6.3 L/m Cardiac index by Lennie calculation: 3.2 L/m/m SELECTIVE CORONARY ARTERIOGRAPHY: LEFT MAIN: The left main is a large caliber vessel which bifurcates into the LAD and circumflex. There is no significant stenosis. LEFT ANTERIOR DESCENDING CORONARY ARTERY: LAD is a large caliber vessel which wraps around to the apex. There is a proximal diagonal 05/04/1929 percent stenosis in the mid LAD 20-30% stenosis of otherwise normal. LEFT CIRCUMFLEX CORONARY ARTERY: Left circumflex is a moderate caliber vessel however is aneurysmal of the proximal to distal circumflex. The circumflex is dominant and supplies the left PDA. There is a proximal 30% circumflex and a mid 30% circumflex stenosis and otherwise aneurysmal however no significant stenosis. RIGHT CORONARY ARTERY: The right coronary artery is a small caliber vessel which gives off an acute marginal branch and is nondominant. There is in the aneurysmal portion of the mid RCA however only mild luminal irregularities. FINAL IMPRESSION: 1. 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 Otherwise mild 20-30% mid LAD stenosis and 30% circumflex stenosis 3. Normal left and right sided filling pressures PLAN: 1. Aggressive risk factor modification per most recent ACC/AHA guidelines. 2. Follow-up in the office in 1-2 weeks.
== END ==
LOC: CATHCVL 07:40
PROVIDERS: ATTEND Internal Medicine
DX: I35.0 Nonrheumatic aortic (valve) stenosis (principal); E11.9 Type 2 diabetes mellitus without complications; I11.9 Hypertensive heart disease without heart failure; E78.5 Hyperlipidemia, unspecified; F17.210 Nicotine dependence, cigarettes, uncomplicated
CPT/HCPCS: 93456; 85018; 82810; C1769; C1894; C1751; J2250; J2001; J3010; J1644; Q9967

== ENCOUNTER → 2022-03-13 | Outpatient (CLI) | payer MEDICARE, OTHER ==
[2022-03-13 10:45] LABS: ALT 26 U/L (4-49); AST 25 U/L (17-59); African American GFR (CKD) >90 (>60 ml/min/1.73 sqM); Albumin 4.5 g/dL (3.5-5.0); Albumin/Globulin Ratio 1.5; Alkaline Phosphatase 65 U/L (38-126); Anion Gap 9 mmol/L; Blood Urea Nitrogen 29 mg/dL (9-20); Calcium 9.4 mg/dL (8.4-10.2); Carbon Dioxide 28 mmol/L (22-30); Chloride 103 mmol/L (98-107); Globulin 3.1 g/dL; Glucose 111 mg/dL (74-99); Non-African American GFR(CKD) 80 (>60 ml/min/1.73 sqM); Potassium 4.1 mmol/L (3.5-5.1); Sodium 140 mmol/L (137-145); Total Bilirubin 0.9 mg/dL (0.2-1.3); Total Protein 7.6 g/dL (6.3-8.2)
[2022-03-13 11:11] LABS: Partial Thromboplastin Time 24.8 sec (22.0-30.0); Prothrombin Time 10.6 sec (9.0-12.0)
--- NOTE | 2022-03-13 11:33 | US ---
EXAMINATION TYPE: US carotid duplex BILAT DATE OF EXAM: 03/13/2022 COMPARISON: NONE CLINICAL HISTORY: R35 SYNCOPE. Syncope TECHNIQUE: Carotid duplex ultrasound examination. Indirect Doppler criteria was utilized. FINDINGS: EXAM MEASUREMENTS: RIGHT: Peak Systolic Velocity (PSV) cm/sec ----- Right CCA: 36 ----- Right ICA: 59 ----- Right ECA: 57.7 ICA/CCA ratio: 1.6 RIGHT: End Diastole cm/sec ----- Right CCA: 11.8 ----- Right ICA: 27.2 ----- Right ECA: 12.7 LEFT: Peak Systolic Velocity (PSV) cm/sec ----- Left CCA: 53.7 ----- Left ICA: 53.8 ----- Left ECA: 55 ICA/CCA ratio: 1.0 LEFT: End Diastole cm/sec ----- Left CCA: 18 ----- Left ICA: 17.5 ----- Left ECA: 10.1 VERTEBRALS (direction of flow): Right Vertebral: Antegrade Left Vertebral: Antegrade Rhythm: Normal MILIEU MANAGER NOTES: Napier scale images show mild to moderate peripheral plaque left carotid bulb. No elevated velocities. IMPRESSION: No dynamically significant stenosis in either internal carotid artery. Criteria for Assigning % of Stenosis / Diameter reduction (Estimation based on the indirect measurements of the internal carotid artery velocities (ICA PSV). 1. Normal (no stenosis)=ICA PSV < 125 cm/s: ratio < 2.0: ICA EDV<40 cm/s. 2. Less than 50% stenosis=ICA PSV < 125 cm/s: ratio < 2.0: ICA EDV<40 cm/s. 3. 50 to 69% stenosis=ICA PSV of 125 to 230 cm/s: ration 2.0 ? 4.0: ICA EDV 40-100 cm/s. 4. Greater than 70% stenosis to near occlusion= ICA PSV > 230 cm/s: ratio > 4.0: ICA EDV > 100 cm/s. 5. Near occlusion= ICA PSV velocities may be low or undetectable: variable ratio and ICA EDV. 6. Total occlusion=unable to detect flow.
--- NOTE | 2022-03-13 12:54 | CT ---
EXAMINATION TYPE: CT TAVR Planning DATE OF EXAM: 03/13/2022 HISTORY: NONRHEUMATIC AORTIC (VALVE) INSUFFICIENCY. CT DLP: 2246.1 mGycm Automated Exposure Control for Dose Reduction was Utilized. CONTRAST: CT scan of the chest, abdomen and pelvis is performed with IV Contrast, patient injected with 125ml m L of Isovue 370. COMPARISON: None. TECHNIQUE: Helical imaging obtained through the chest, abdomen and pelvis during arterial phase toni maría administration of radiographic contrast intravenously. FINDINGS: See report from [employer] regarding preprocedural planning CHEST: Lower Neck and Thyroid: No significant findings Lungs: Slightly elevated left hemidiaphragm. Overall low lung volumes. Central Airway: No significant findings Pleura: No significant findings Pulmonary Arteries: No significant findings Heart and Pericardium: Cardiomegaly with severe right atrial dilatation. There is moderate right vent ricular dilatation. Dual-lead pacemaker is noted. Calcification level of the aortic valve noted. Lymph Nodes: No significant findings Mediastinum & Esophagus: No significant findings ABDOMEN/PELVIS: Please note arterial phase of the imaging limits detailed evaluation of the solid abdominal organs. Liver: No significant findings Spleen: No significant findings Kidneys: Tiny thin-walled cysts scattered throughout the left kidney are present. Adrenal Glands: No significant findings Pancreas: Moderate fat replaced atrophy Gallbladder: No significant findings Bowel and Mesentery: No significant findings Lymph Nodes: No significant findings Urinary Bladder: No significant findings Pelvic Organs: Mildly enlarged prostate gland suggestive of BPH, correlate clinically Other: Atherosclerotic and ectatic descending aorta Osseous structures: Levoconvex scoliosis centered at L1-L2 level. Multilevel facet arthropathy in the lumbar spine IMPRESSION: No significant incidental findings.
[2022-03-13 14:34] LABS: Basophils # (A) 0.02 X 10*3/uL (0.00-0.10); Basophils % (A) 0.3 %; Eosinophils # (A) 0.26 X 10*3/uL (0.04-0.35); Eosinophils % (A) 4.5 %; HCT 46.4 % (39.6-50.0); HGB 15.8 g/dL (13.0-17.0); Immature Grans, Automated 0.5 %; Lymphocytes % (A) 27.8 %; MCH 32.2 pg (27.0-32.0); MCHC 34.1 g/dL (32.0-37.0); MCV 94.5 fL (80.0-97.0); Mean Platelet Volume 12.7 fL (9.5-12.2); Monocytes # (A) 0.66 X 10*3/uL (0.20-1.00); Monocytes % (A) 11.5 %; NRBC Per 100 WBC 0 /100 WBCS (0.0-0.0); Neutrophils # (A) 3.18 X 10*3/uL (1.80-7.70); Neutrophils % (A) 55.4 %; Platelet Count 144 X 10*3/uL (140-440); RBC 4.91 X 10*6/uL (4.40-5.60); RDW 13.3 % (11.5-14.5); WBC 5.75 X 10*3/uL (4.50-10.00)
[2022-03-13 15:02] LABS: Hepatitis A Antibody IgM Nonreactive (Nonreactive); Hepatitis B Core IgM Nonreactive (Nonreactive); Hepatitis B Surface Antigen Nonreactive (Nonreactive); Hepatitis C IgG Antibody Nonreactive (Nonreactive)
[2022-03-13 15:03] LABS: Chol/HDL Ratio 3.06 Ratio; Magnesium 1.8 mg/dL (1.5-2.4); VLDL Calculation 13.14 mg/dL (5.00-40.00)
[2022-03-13 20:43] LABS: Appearance,Urine Clear (Clear); Bilirubin,Urine Negative (Negative); Blood,Urine Negative (Negative); Color,Urine Yellow (Yellow); Ketones,Urine Negative (Negative); Nitrite,Urine Negative (Negative); Specific Gravity,Urine 1.023 (1.001-1.030); Urobilinogen,Urine 0.2 (0.2,1.0)
== END | disposition home or self-care (01) ==
LOC: LABWHC1 09:06
PROVIDERS: ATTEND Thoracic Surgery (Cardiothoracic Vascular Surgery)
DX: Z01.818 Encounter for other preprocedural examination (principal); I35.1 Nonrheumatic aortic (valve) insufficiency; I48.91 Unspecified atrial fibrillation; E87.8 Other disorders of electrolyte and fluid balance, not elsewhere classified; E07.9 Disorder of thyroid, unspecified; E11.22 Type 2 diabetes mellitus with diabetic chronic kidney disease; N18.9 Chronic kidney disease, unspecified; E78.5 Hyperlipidemia, unspecified; R94.31 Abnormal electrocardiogram [ECG] [EKG]; R55 Syncope and collapse; R58 Hemorrhage, not elsewhere classified; R35.0 Frequency of micturition; Z79.01 Long term (current) use of anticoagulants; Z79.899 Other long term (current) drug therapy
CPT/HCPCS: 94150; 83880; 80061; 80053; 80074; 84443; 83735; 85025; 85610; 85730; 81003; 87086; 83036; 93880; 71275; 36415 ×2; 74174; 93005; Q9967

== ENCOUNTER → 2022-04-04 | Outpatient (CLI) | payer MEDICARE, OTHER ==
[2022-04-04 16:55] LABS: Partial Thromboplastin Time 23.8 sec (22.0-30.0); Prothrombin Time 10.7 sec (9.0-12.0)
[2022-04-04 23:46] LABS: African American GFR (CKD) 77.5 (60.0-200.0); Albumin 4.3 g/dL (3.8-4.9); Albumin/Globulin Ratio 1.41 (1.60-3.17); Anion Gap 9.7 mmol/L (10.00-18.00); BUN/Creat Ratio 28.83 Ratio (12.00-20.00); Blood Urea Nitrogen 29.7 mg/dL (9.0-27.0); Calcium 9.9 mg/dL (8.7-10.3); Carbon Dioxide 27.7 mmol/L (20.0-27.5); Non-African American GFR(CKD) 66.9 (60.0-200.0); Potassium 4.2 mmol/L (3.5-5.5); Total Bilirubin 0.7 mg/dL (0.30-1.20); Total Protein 7.3 g/dL (6.2-8.2)
[2022-04-04 23:49] LABS: HCT 49.6 % (39.6-50.0); HGB 16.2 g/dL (13.0-17.0); MCH 32.7 pg (27.0-32.0); MCHC 32.7 g/dL (32.0-37.0); Mean Platelet Volume 13.2 fL (9.5-12.2); NRBC Per 100 WBC 0 /100 WBCS (0.0-0.0); Platelet Count 153 X 10*3/uL (140-440); RBC 4.96 X 10*6/uL (4.40-5.60); RDW 13.3 % (11.5-14.5); WBC 5.49 X 10*3/uL (4.50-10.00)
== END | disposition home or self-care (01) ==
LOC: LABWHC1 15:23
PROVIDERS: ATTEND Thoracic Surgery (Cardiothoracic Vascular Surgery)
DX: I35.0 Nonrheumatic aortic (valve) stenosis (principal)
CPT/HCPCS: 36415; 80053; 85027; 85610; 85730; 86850; 86900; 86901

== ENCOUNTER 2022-04-11 05:59 | Inpatient (IN) | payer MEDICARE, OTHER ==
[2022-04-11] MEDS ORDERED: NITROGLYCERIN-D5W PMX 25 MG/250 ML BTL IV PRN (06:00)
[2022-04-11] MEDS ORDERED: METOPROLOL TARTRATE 25 MG TAB PO ONE (06:00)
[2022-04-11] MEDS ORDERED: SODIUM CHLORIDE 0.9% 500 ML 500 ML INTRAARTER PRN (06:00)
[2022-04-11] MEDS ORDERED: ATORVASTATIN 10 MG TAB PO ONE (06:00)
[2022-04-11] MEDS ORDERED: CLOPIDOGREL 75 MG TAB PO ONE (06:00)
[2022-04-11] MEDS ORDERED: ASPIRIN 325 MG TAB PO ONE (06:00)
[2022-04-11] MEDS ORDERED: PROTAMINE SULFATE 250 MG in EMPTY BAG 1 BAG IV PRN (06:00)
[2022-04-11] MEDS ORDERED: MUPIROCIN 2% OINT 22 GM TUBE NASAL SCH (06:00)
[2022-04-11] MEDS ORDERED: TRANEXAMIC ACID 2,000 MG in SODIUM CHLORIDE 0.9% 80 ML IV PRN (06:00)
[2022-04-11] MEDS ORDERED: ELECTROLYTE-A SOLUTION 1,000 ML with POTASSIUM CHLORIDE 100 MEQ, MAGNESIUM SULFATE 16 M... IV PRN ×5 (06:00)
[2022-04-11] MEDS ORDERED: LACTATED RINGERS 1,000 ML IV SCH (06:00)
[2022-04-11] MEDS ORDERED: CLEVIDIPINE BUTYRATE 25 MG in EMPTY BAG 1 BAG IV PRN (06:00)
[2022-04-11] MEDS ORDERED: INSULIN REGULAR 100 UNIT in SODIUM CHLORIDE 0.9% 100 ML IV PRN (06:00)
[2022-04-11 06:35] LABS: Glucose,Whole Blood 93 mg/dL (70-110)
[2022-04-11] MEDS ORDERED: SODIUM CHLORIDE 0.9% 1,000 ML IV ONE (06:40)
[2022-04-11] MEDS ORDERED: ONDANSETRON 4 MG/2 ML VIAL ONE (07:51)
[2022-04-11] MEDS ORDERED: DEXAMETHASONE SOD PHOS (MDV) 100 MG/10 ML VIAL ONE (07:51)
[2022-04-11] MEDS ORDERED: ePHEDrine 50 MG/ML 1 ML VIAL ONE (07:51)
[2022-04-11] MEDS ORDERED: LIDOCAINE 2% INJ 20 MG/ML (2 ML VIAL) ONE (07:51)
[2022-04-11] MEDS ORDERED: fentaNYL (PF) 50 MCG/ML 2 ML AMP ONE (07:51)
[2022-04-11] MEDS ORDERED: ceFAZolin 1,000 MG VIAL ONE (07:51)
[2022-04-11] MEDS ORDERED: HEPARIN SODIUM,PORCINE 10,000 UNIT/ML 1 ML VIAL ONE (07:51)
[2022-04-11] MEDS ORDERED: PROPOFOL 10 MG/ML 20 ML VIAL IV ONE (07:51)
[2022-04-11] MEDS ORDERED: PHENYLEPHRINE-0.9% NACL SYG 1,000 MCG/10 ML SYRINGE ONE (07:51)
[2022-04-11] MEDS ORDERED: NEOSTIGMINE 1 MG/ML 10 ML VIAL ONE (07:51)
[2022-04-11] MEDS ORDERED: SUCCINYLCHOLINE CHLORIDE 200 MG/10 ML VIAL IV ONE (07:51)
[2022-04-11] MEDS ORDERED: PROTAMINE SULFATE 10 MG/ML 5 ML VIAL IV ONE (07:51)
[2022-04-11] MEDS ORDERED: SODIUM CHLORIDE 0.9% 100 ML BAG ONE (07:51)
[2022-04-11] MEDS ORDERED: ROCURONIUM 10 MG/ML (5 ML VIAL) IV ONE (07:51)
[2022-04-11] MEDS ORDERED: GLYCOPYRROLATE 0.2 MG/ML 2 ML VIAL ONE (07:51)
[2022-04-11] MEDS ORDERED: IOPAMIDOL-370 125ML BTL INJ ONE (09:24)
[2022-04-11] MEDS ORDERED: IOPAMIDOL-370 50ML BTL INJ ONE (09:24)
[2022-04-11] MEDS ORDERED: LACTATED RINGERS 1,000 ML IV ONE (09:30)
--- NOTE | 2022-04-11 09:51 | P.OP ---
Description of Procedure: Transcatheter Aoritc Valve Replacement Operative report PROCEDURE PERFORMED: 1. Percutaneous Aortic Valve Implantation using a 34 mm Evolut-FX 2. Transesophageal echocardiography (performed by anesthesia) 3. Ultrasound guided access the repair of right femoral artery access site by Perclose closure device. 4. Placement of temporary pacemaker wire. 5. Aortic root angiography 6. Pre-balloon aortic valvuloplasty with a 23 mm True balloon INDICATIONS: 1. 81 year-old with a history of severe symptomatic aortic valve stenosis. PERFORMING PHYSICIANS: 1. Hector Young DO Interventional Cardiology 2. Curry Cantrell MD Interventional Cardiology. 3. Rodrigo Mata MD, Cardiothoracic Surgeon. SEDATION: General anesthesia provided by anesthesia, see separate note APPROACH: Right femoral artery via percutaneous approach PROCEDURE DESCRIPTION: The patient was discussed at valve clinic with multidisciplinary approach with cardiothoracic surgeon as well as associate professor of surgery and thought better treated with TAVR. Risks, benefits, and alternatives of the procedure had been explained to the patient who understood the risks and agreed to proceed. After consents were obtained, patient was brought to the transcatheter aortic valve implantation room in the cardiac tag and label cutter and general anesthesia was provided by the anesthesiologist (see separate report). Once full body sterile prep was performed, left femoral venous access was obtained and a 5Fr temporary pacemaker was inserted into the RV. Pacing threshholds were checked and deemed appropriate. Next the left femoral artery was accessed using a modified Seldinger technique, ultrasound guidance and micropuncture technique. A 6 [place]ien Rabi sheath was placed in the left femoral artery. Next, a 6-Nigerien pigtail catheter was advanced into the aorta and positioned in the aortic root, aortic root angiography was performed to determine optimal deployment angle. The right femoral artery was accessed using modified Seldinger technique, micropuncture technique and under direct ultrasound guidance. Femoral angiogram was done showing access in the common femoral artery and a 6Fr sheath was placed. Next preclose technique was performed using 2 Percloses. Next a 0.035 Lunderquist wire was placed in the Aorta via a pigtail catheter. Over that the arteriotomy was serially dilated and a 18 Fr [place] sheath was placed. Next a 6F- AL1 catheter was advanced over a wire to the aortic root. A straight wire was advanced through the catheter and used to cross the severely stenotic valve. The AL1 was then exchanged for a 6Fr pigtail catheter and pressure measurements were obtained. The 0.035 Lunderquist wire was then positioned in the apex. Pre- balloon aortic valvuloplasty was performed with a 23 mm True balloon with rapid pacing. Next a 34 mm Evolut-FX was advanced. The valve was then positioned across the aortic valve and confirmed with aortic root angiography. The valve was then deployed in proper position using slow deployment and with rapid pacing in conjuncture with aortic root angiography and ELY. The delivery system was withdrawn back into the arch and an aortic root injection in conjunction with ELY demonstrated a satisfactory result. There was mild para valvular leak. There was no evidence of any other significant abnormalities. The preclose Perclose was then deployed in the right femoral artery. Patient did require an additional 8-N[place]ien Angio-Seal and hemostasis was achieved. A 6-Nigerien rim catheter was then advanced to the level of the iliac bifurcation via the left femoral access. Femoral angiogram was performed that showed no contrast leak. The left femoral angiogram demonstrated an arteriotomy in the common femoral artery and this was repaired using a 6F angioseal device with complete hemostasis. The temporary venous pacemaker was 6-N[place]ien sheath was removed and pressure held with hemostasis achieved. The patient was then transported to the ICU in hemodynamically stable condition, requiring no pressor support. COMPLICATIONS: None CONCLUSION: 1. Implantaion of 34mm Evolut-FX transcatheter aortic valve via right femoral approach under ELY and fluoro guidance with mild henry-valvular aortic regurgitation. 2. Placement of temporary pacemaker wire 3. Aortic Root Aortogram. 4. Pre-balloon aortic valvuloplasty with a 23 mm True balloon RECOMMENDATIONS: The patient will be monitored in the ICU for hemodynamic and electrical stability. Patient will be on Eliquis and Plavix.
[2022-04-11] MEDS ORDERED: ACETAMINOPHEN TAB 500 MG TAB PO PRN (09:54)
[2022-04-11] MEDS ORDERED: IPRATROPIUM-ALBUTEROL 3 ML NEB INHALATION PRN (09:54)
[2022-04-11] MEDS ORDERED: ONDANSETRON 4 MG/2 ML VIAL IVP PRN (09:54)
--- NOTE | 2022-04-11 10:09 | P.OP ---
Date of Procedure: 04/11/22 Preoperative Diagnosis: Calcific aortic stenosis Postoperative Diagnosis: Same Procedure(s) Performed: Right percutaneous transfemoral transcatheter aortic valve replacement with 34 mm Medtronic FX CoreValve Implants: 34 mm Medtronic Fx CoreValve Anesthesia: KWABENA Surgeon: Rodrigo Mata Fabric Worker #1: Hector Young (First mail distributor) Fabric Worker #2: Curry Cantrell (Second mail distributor) Estimated Blood Loss (ml): 10 IV fluids (ml): 1,000 Urine output (ml): 0 Pathology: none sent Condition: stable Disposition: ICU Indications for Procedure: 81-year-old male with mild dementia presents with symptomatic vertical aortic stenosis. He was seen in the high risk valve clinic and felt to be high risk for surgical aortic valve and appropriate for transcatheter aortic valve replacement. Elective surgery was scheduled. Operative Findings: ELY demonstrated heavily calcific tricuspid aortic valve with very tight central opening. Crossing the valve was challenging and after crossing the valve it was decided to predilate. Deployment of the valve proceeded uneventfully with valve depth deployment levels at 3 and 3. Initially there was mild paravalvular leak noted but this improved over the first 10 minutes and only trace aortic insufficiency could be visualized on the ELY of the procedure. Completion angiography of the right femoral system demonstrated no evidence of leak or stenosis with good flow down both the superficial and deep femoral arteries. Description of Procedure: The patient was brought to the cardiac catheterization laboratory and placed supine on the table. General anesthesia was induced. Patient was appropriately positioned. Anterior torso and bilateral groins were sterilely prepped and draped. Right femoral arterial access was obtained by Dr. Young under ultrasound guidance. 7-[place] Citizen sheath was placed. Left femoral arterial access was obtained again under ultrasound guidance and a long 7-[place] Citizen sheath was placed upwards into the descending thoracic aorta. Left femoral venous access was obtained under ultrasound guidance and a short 7-[place] Citizen sheath was placed. Through this a transvenous pacemaker was advanced into the apex of the right ventricle and tested and noted to function well. Pigtail catheter was advanced through the left femoral arterial sheath and positioned in the non-coronary sinus of Valsalva. It was connected to pressure injector line. 2 Perclose devices were deployed in the right femoral artery and an 8-[place] Citizen sheath placed there. Guidewire was advanced through the right femoral artery into the arch of the aorta and then exchanged for a stiff wire. 8-[place] Citizen sheath was exchanged for a 14-[place] Citizen sheath over the stiff wire. Patient was systemically heparinized, ACTs were maintained greater than 250 during the procedure. The valve was crossed with a straight wire from the right femoral access. Pigtail catheter was positioned in the apex of the left ventricle. Transvalvular gradients were measured. Lunderquist wire was positioned in the apex of the left ventricle. 23 mm true balloon was advanced across the aortic valve and aortic valvuloplasty was performed under rapid ventricular pacing. Lunderquist wire was maintained in the apex of the ventricle. Balloon was removed and the 14-[place] Citizen sheath was exchanged for a 34 mm Neonodetronic FX CoreValve delivery system. This was advanced upwards through the iliofemoral system, descending thoracic aorta, around the aortic arch and across the aortic valve. Laurita valve was deployed under rapid ventricular pacing with deployments levels of 3 on the right and 3 on the left. Delivery system was withdrawn back into the descending thoracic aorta. ELY demonstrated initially mild paravalvular leak. This was confirmed on angiography. However over the ensuing 5-10 minutes the paravalvular leak diminished and ultimately was trivial. Was decided to accept the position of the valve and protamine was initiated. The core valve delivery system was removed and exchanged back for 14-[place] Citizen sheath. This was removed and femoral hemostasis was obtained by cardiology. Completion angiography was performed with excellent results as noted above. The left femoral arterial catheters were removed as was the femoral venous catheter and temporary pacemaker wire. Angio-Seal was used for control of the left femoral closure. Patient was transferred to ICU in stable hemodynamic condition.
[2022-04-11 10:15] LABS: Glucose,Whole Blood 105 mg/dL (70-110)
--- NOTE | 2022-04-11 10:20 | P.ANPRN ---
Procedure Note - Anesthesia - ELY Intraop Pre Bypass ELY Intraop - Anesthesia Indication: Transcatheter aortic valve replacement Date of Procedure: 04/11/22 Pre-operative Diagnosis: Severe aortic stenosis Post-operative Diagnosis: Severe aortic stenosis status post-transcatheter aortic valve replacement Surgeon: Rodrigo Mata Left Ventricle: Ejection fraction 55-60%. no regional wall motion abnormalities noted. Left Ventricle Hypertrophy: Yes R. Ventricle Function: Normal Aortic Valve: Aortic valve severely calcified with a tight stenosis. Mean gradient across the valve is 52 mmHg and a peak gradient is 64 mmHg. Mild aortic regurgitation seen. Anatomy: Trileaflet Aortic Stenosis: Severe Aortic Regurgitation: Mild Mitral Stenosis: None Mitral Regurgitation: Moderate (Central jet) Tricuspid Regurgitation: Mild Pulmonic Stenosis: None R. Atrial Dilation: No R. Atrial PFO: No L. Atrial Dilation: Yes Aortic Dissection: No Aortic Calcification: None Plural Effusion: None - ELY Intraop Post Bypass ELY Intraop Post Bypass Procedure Performed: Trans-catheter aortic valve replacement Left Ventricle: Ejection fraction 50-60%, no new regional wall motion abnormalities noted. Ejection Fraction: Normal Regional Wall Motion Abnormalities: None R. Ventricle Function: Normal Aortic Valve: Prosthetic aortic valve seen in situ in the aortic position. It appears to be seated well. There is a mild paravalvular leak which is not significant. Peak gradient across the prosthetic valve is 6 mmHg and mean gradient is 2 mmHg. Mitral Valve: Unchanged Tricuspid: Unchanged Pulmonic: Unchanged Aortic Dissection: No
[2022-04-11] MEDS: SODIUM CHLORIDE 0.9% 1,000 ML IV SCH (10:31)
--- NOTE | 2022-04-11 10:35 | XR ---
EXAMINATION TYPE: XR chest 1V portable DATE OF EXAM: 04/11/2022 COMPARISON: 05/21/2018 INDICATION: Post TAVR TECHNIQUE: Single frontal view of the chest is obtained. FINDINGS: The heart size is normal. Valve has been placed. The pulmonary vasculature is normal. The lungs are clear. Pacemaker overlies left chest. Loop recorder is present. IMPRESSION: 1. No acute pulmonary process. 2. Postsurgical changes
[2022-04-11 11:21] LABS: Basophils % (A) 1 %; Eosinophils # (A) 0.1 k/uL (0-0.7); Eosinophils % (A) 3 %; HCT 41.8 % (39.0-53.0); HGB 14.6 gm/dL (13.0-17.5); Lymphocytes # (A) 0.8 k/uL (1.0-4.8); Lymphocytes % (A) 18 %; MCH 33.6 pg (25.0-35.0); MCHC 34.9 g/dL (31.0-37.0); MCV 96.5 fL (80.0-100.0); Mean Platelet Volume 10.1; Monocytes # (A) 0.2 k/uL (0-1.0); Monocytes % (A) 4 %; Neutrophils # (A) 3.4 k/uL (1.3-7.7); Neutrophils % (A) 74 %; RBC 4.33 m/uL (4.30-5.90); RDW 13.1 % (11.5-15.5); WBC 4.6 k/uL (3.8-10.6)
[2022-04-11 11:29] LABS: Ionized Calcium 5.1 mg/dL (4.5-5.3)
[2022-04-11] MEDS: MULTIVITAMINS, THERA 1 EACH TAB PO SCH (11:29)
[2022-04-11] MEDS: FOLIC ACID 1 MG TAB PO SCH (11:29)
[2022-04-11] MEDS: CHOLECALCIFEROL 25 MCG (1000 IU) TABLET PO SCH ×2 (11:29→21:17)
[2022-04-11] MEDS: hydrALAZINE HCL 50 MG TAB PO SCH ×2 (11:34→21:17)
[2022-04-11] MEDS: LOSARTAN 50 MG TAB PO SCH (11:34)
[2022-04-11 11:44] LABS: ALT 21 U/L (4-49); AST 28 U/L (17-59); African American GFR (CKD) >90 (>60 ml/min/1.73 sqM); Albumin 3.3 g/dL (3.5-5.0); Alkaline Phosphatase 58 U/L (38-126); Anion Gap 7 mmol/L; Blood Urea Nitrogen 28 mg/dL (9-20); Calcium 8.2 mg/dL (8.4-10.2); Carbon Dioxide 22 mmol/L (22-30); Chloride 108 mmol/L (98-107); Glucose 111 mg/dL (74-99); Magnesium 1.7 mg/dL (1.6-2.3); Non-African American GFR(CKD) 82 (>60 ml/min/1.73 sqM); Potassium 3.8 mmol/L (3.5-5.1); Sodium 137 mmol/L (137-145); Total Bilirubin 0.5 mg/dL (0.2-1.3); Total Protein 6.1 g/dL (6.3-8.2)
[2022-04-11 11:48] LABS: INR 1.1 (<1.2); Partial Thromboplastin Time 26.4 sec (22.0-30.0); Prothrombin Time 11.2 sec (9.0-12.0)
[2022-04-11 11:53] LABS: Platelet Count 95 k/uL (150-450); RBC Morphology Normal
--- NOTE | 2022-04-11 12:48 | P.CNPUL ---
History of Present Illness Consult date: 04/11/22 Requesting physician: Alondra Borrego Reason for consult: other Chief complaint: Transcatheter aortic valve replacement History of present illness: I'm evaluating this patient today 04/11/2022 after an elective transcatheter aortic valve replacement by Hector Vidales Skaff. He has just returned from surgery. Patient is resting comfortably in bed on a 6 L simple mask. Vital signs are all stable. Lactated Ringer's is infusing at 50 ML's per hour. Patient has a known history of aortic stenosis, his functional capacity is been limited recently mainly due to fatigue and shortness of breath. Denies syncope or chest pain preoperatively. Patient did have an echocardiogram performed 0 12/20/2021 which showed a preserved left ventricular function and severe aortic stenosis with velocity of 4.4 and m/s and a mean gradient of 51 mmhg. A follow- up, preoperative, right-sided cardiac catheterization on 01/26/2022 showed aneurysmal circumflex and RCA which may be seen with Kawasaki's disease, Mild 20-30% Mid LAD Stenosis and 30% Circumflex Stenosis, and normal Left and Right- Sided Filling Pressures. Patient's other pertinent medical history includes obstructive sleep apnea with a CPAP at home that he does not use, current smoker, hypertension, hyperlipidemia, CVA/TIA, diabetes mellitus, pacemaker implantation. Patient has had a follow-up, postoperative chest x-ray today, which showed no acute pulmonary process and postsurgical changes. A postoperative CBC shows a WBC count of 4.6, hemoglobin 14.6, hematocrit 41.8, platelets 95,000. BMP is also stable with a sodium 137, potassium 3.8, chloride 108, serum CO2 22, BUN 28, creatinine 0.81, glucose 111. Patient is receiving DuoNeb inhalation, cefazolin for postsurgical prophylaxis, Eliquis for anticoagulation, Plavix for antiplatelet, heparin for DVT prophylaxis, Protonix for GI prophylaxis. Review of Systems REVIEW OF SYSTEMS: CONSTITUTIONAL: Denies any recent significant weight loss or weight gain. EYES: Denies change in vision. EARS, NOSE, MOUTH, THROAT: Denies headaches, denies sore throat. CARDIOVASCULAR: Denies chest pain, palpitations or syncopal episodes. RESPIRATORY: Denies shortness of breath, cough, congestion or hemoptysis. GASTROINTESTINAL: Denies change in appetite, denies abdominal pain GENITOURINARY: Denies hematuria, denies infections. MUSKULOSKELETAL: Denies pain, denies swelling. INTEGUMENTARY: Denies rash, denies eczema. NEUROLOGICAL: Denies recent memory loss, no recent seizure activity. PSYCHIATRIC: Denies anxiety, denies depression. HEMATOLOGIC/LYMPHATIC: Denies anemia, denies enlarged lymph nodes. Past Medical History Past Medical History: Cancer, CVA/TIA, Diabetes Mellitus, Hyperlipidemia, Osteoarthritis (OA), Sleep Apnea/CPAP/BIPAP Additional Past Medical History / Comment(s): TIA 0ct. 2012-some loss of vision right eye, "borderline diabetic-diet control", hx skin cancer on face, doesn't use CPAP, chronic back pain & curvature of spine, mild dementia History of Any Multi-Drug Resistant Organisms: None Reported Past Surgical History: Heart Catheterization, Pacemaker, Prostate Surgery Additional Past Surgical History / Comment(s): HYDROCELE REPAIR, TURP, ELY, has a loop recorder(not functioning) Past Anesthesia/Blood Transfusion Reactions: No Reported Reaction Type of Cardiac Device: Permanent Pacemaker Device Placement Date:: 05/20/18 [employer] Smoking Status: Current some day smoker - Past Family History Father Family Medical History: Chest Pain / Angina Mother Family Medical History: No Reported History Additional Family Medical History / Comment(s): alzheimers Medications and Allergies Home Medications Medication Instructions Recorded Confirmed Type hydrALAZINE HCL [Apresoline] 50 mg PO BID 03/05/14 04/11/22 History Cholecalciferol (Vitamin D3) 1,000 unit PO BID 03/20/18 04/11/22 History [Vitamin D3] Multivitamin,Therapeutic [Thera] 1 tab PO DAILY 03/31/18 04/11/22 History Aspirin 81 mg PO DAILY chew 02/10/19 04/11/22 Rx Losartan Potassium 100 mg PO DAILY 03/15/20 04/11/22 History Red Yeast Rice 600 mg PO DAILY 03/15/20 04/11/22 History hydroCHLOROthiazide [Hydrodiuril] 25 mg PO DAILY 03/15/20 04/11/22 History Acetaminophen Tab [Tylenol] 1,300 mg PO BID 01/24/22 04/11/22 History Apixaban [Eliquis] 5 mg PO BID 01/24/22 04/11/22 History Donepezil [Aricept] 10 mg PO HS 01/24/22 04/11/22 History Folic Acid 1 mg PO DAILY 01/24/22 04/11/22 History Memantine [Namenda] 5 mg PO HS 04/05/22 04/11/22 History Allergies Allergy/AdvReac Type Severity Reaction Status Date / Time latex Allergy Rash/Hives Verified 04/04/22 15:30 Sulfa (Sulfonamide Allergy Swelling Verified 04/04/22 15:30 Antibiotics) Qqscoys-WUG-FxO Reductase AdvReac Unknown Verified 04/04/22 15:30 Inhibitor [Nfjtehc-Yyo-Amk Reductase Inhibitor] ELASTIC Allergy Rash/Hives Uncoded 04/04/22 15:30 Physical Exam Vitals: Vital Signs Temp Pulse Pulse Resp BP BP BP 04/11/22 11:30 94.0 F L 60 10 L 04/11/22 11:15 63 18 04/11/22 11:00 69 11 L 04/11/22 10:45 70 12 04/11/22 10:30 80 14 04/11/22 10:15 96.2 F L 77 16 133/90 04/11/22 10:01 94 18 04/11/22 06:25 98.6 F 62 16 132/96 132/86 Pulse Ox 04/11/22 11:30 98 04/11/22 11:15 97 04/11/22 11:00 97 04/11/22 10:45 97 04/11/22 10:30 95 04/11/22 10:15 96 04/11/22 10:01 04/11/22 06:25 96 Intake and Output 04/10/22 04/11/22 04/11/22 22:59 06:59 14:59 Intake Total 1606 Output Total 100 Balance 1506 Intake: IV 1606 NS pressure bag 6 Sodium Chloride 0.9% 1, 100 000 ml @ 50 mls/hr IV . Q20H [facility] Rx#:[id number] Output: Urine 100 Other: Weight 83.3 kg ABP, PAP, CO, CI - Last 8 Hours Arterial Blood Pressure 135/75 Arterial Blood Pressure 147/84 Arterial Blood Pressure 131/73 Arterial Blood Pressure 137/74 Arterial Blood Pressure 132/80 Arterial Blood Pressure 139/76 GENERAL EXAM: Alert, active, comfortable in no apparent distress. HEAD: Normocephalic. EYES: Normal reaction of pupils, equal size. NOSE: Clear with pink turbinates. THROAT: No erythema or exudates. NECK: No masses, no JVD. CHEST: No chest wall deformity. LUNGS: Equal air entry with no crackles, wheeze, rhonchi or dullness. CVS: S1 and S2 normal with no audible murmur, regular rhythm. ABDOMEN: No hepatosplenomegaly, normal bowel sounds, no guarding or rigidity. SPINE: No scoliosis or deformity SKIN: No rashes CENTRAL NERVOUS SYSTEM: No focal deficits, tone is normal in all 4 extremities. EXTREMITIES: There is no peripheral edema. No clubbing, no cyanosis. Peripheral pulses are intact. There are bilateral groin puncture sites with dressings clean, dry, and intact. No hematoma present. Results - Laboratory Findings CBC and BMP: 04/11/22 10:35 04/11/22 10:35 PT/INR, D-dimer PT 11.2 sec (9.0-12.0) 04/11/22 10:35 INR 1.1 (<1.2) 04/11/22 10:35 Abnormal lab findings: Abnormal Labs 04/11/22 04/11/22 10:35 10:35 Plt Count 95 L Lymphocytes # 0.8 L Chloride 108 H BUN 28 H Glucose 111 H Calcium 8.2 L Total Protein 6.1 L Albumin 3.3 L - Diagnostic Findings Chest x-ray: report reviewed, image reviewed Assessment and Plan Assessment: Severe aortic stenosis status post transcatheter aortic valve replacement. Postop day #0 Thrombocytopenia Obstructive sleep apnea. She is noncompliant with home CPAP Primary hypertension Hyperlipidemia Diabetes mellitus History of CVA Plan: Patient's labs, medications, x-ray report reviewed Oxygen to maintain oxygen saturation greater than 92% Continue postsurgical antibiotic prophylaxis form of Keflex We'll continue to follow I have personally seen and examined the patient, performed the documentation and the assessment and plan as written. Number of minutes spent on the visit: [20 ]. Time with Patient: Greater than 30
[2022-04-11 14:09] VITALS: BMI 28.8
[2022-04-11] MEDS ORDERED: TAMSULOSIN 0.4 MG CAP.ER.24H PO SCH (18:30)
[2022-04-11] MEDS ORDERED: DONEPEZIL 10 MG TAB PO SCH (21:00)
[2022-04-11] MEDS ORDERED: MEMANTINE 5 MG TAB PO SCH (21:00)
[2022-04-11 21:43] VITALS: TEMP 97.7
[2022-04-12] MEDS ORDERED: HEPARIN SODIUM,PORCINE/PF 5,000 UNIT/0.5 ML SYRINGE SQ SCH
[2022-04-12 06:24] LABS: Basophils % (A) 0 %; Eosinophils % (A) 1 %; HGB 14.2 gm/dL (13.0-17.5); Lymphocytes # (A) 0.9 k/uL (1.0-4.8); Lymphocytes % (A) 13 %; MCH 32.8 pg (25.0-35.0); MCHC 33.8 g/dL (31.0-37.0); Mean Platelet Volume 10.4; Monocytes # (A) 0.6 k/uL (0-1.0); Monocytes % (A) 8 %; Neutrophils # (A) 5.7 k/uL (1.3-7.7); Neutrophils % (A) 77 %; Platelet Count 113 k/uL (150-450); RBC 4.33 m/uL (4.30-5.90); RDW 12.7 % (11.5-15.5); WBC 7.4 k/uL (3.8-10.6)
[2022-04-12 06:30] LABS: Ionized Calcium 5.1 mg/dL (4.5-5.3)
[2022-04-12 07:11] LABS: ALT 18 U/L (4-49); AST 30 U/L (17-59); African American GFR (CKD) >90 (>60 ml/min/1.73 sqM); Albumin 3.6 g/dL (3.5-5.0); Alkaline Phosphatase 59 U/L (38-126); Anion Gap 6 mmol/L; Blood Urea Nitrogen 22 mg/dL (9-20); Calcium 8.7 mg/dL (8.4-10.2); Carbon Dioxide 24 mmol/L (22-30); Chloride 106 mmol/L (98-107); Glucose 111 mg/dL (74-99); Magnesium 1.7 mg/dL (1.6-2.3); Non-African American GFR(CKD) 85 (>60 ml/min/1.73 sqM); Sodium 136 mmol/L (137-145); Total Bilirubin 0.8 mg/dL (0.2-1.3); Total Protein 6.5 g/dL (6.3-8.2)
[2022-04-12] MEDS ORDERED: PANTOPRAZOLE 40 MG TABLET PO SCH (07:30)
[2022-04-12] MEDS: SODIUM CHLORIDE 0.9% 1,000 ML IV SCH (07:57)
[2022-04-12 08:03] VITALS: RESP 14
[2022-04-12] MEDS ORDERED: CLOPIDOGREL 75 MG TAB PO SCH (09:00)
[2022-04-12] MEDS ORDERED: hydroCHLOROthiazide 25 MG TAB PO SCH (09:00)
[2022-04-12] MEDS ORDERED: MAGNESIUM HYDROXIDE 2,400 MG/10 ML CUP PO PRN (09:00)
[2022-04-12] MEDS ORDERED: bisacodyL 10 MG SUPP RECTAL PRN (09:00)
[2022-04-12] MEDS ORDERED: METOPROLOL TARTRATE 12.5 MG TAB PO SCH (09:00)
[2022-04-12] MEDS ORDERED: APIXABAN 5 MG TAB PO SCH (09:00)
[2022-04-12] MEDS: hydrALAZINE HCL 50 MG TAB PO SCH (09:21)
[2022-04-12] MEDS: LOSARTAN 50 MG TAB PO SCH (09:21)
[2022-04-12] MEDS: FOLIC ACID 1 MG TAB PO SCH (09:21)
[2022-04-12] MEDS: CHOLECALCIFEROL 25 MCG (1000 IU) TABLET PO SCH (09:21)
[2022-04-12] MEDS: MULTIVITAMINS, THERA 1 EACH TAB PO SCH (09:21)
--- NOTE | 2022-04-12 09:33 | XR ---
EXAMINATION TYPE: XR chest 1V portable DATE OF EXAM: 04/12/2022 5:12 AM COMPARISON: Chest radiographs from TECHNIQUE: XR chest 1V portable Portable AP radiograph of the chest. CLINICAL INDICATION:Male, 81 years old with history of Post TAVR; FINDINGS: Lungs/Pleura: Low lung volumes are present. There is no evidence of pleural effusion, focal consolida tion, or pneumothorax. Pulmonary vascularity: Unremarkable. Heart/mediastinum: Cardiomediastinal silhouette is unremarkable. Post aortic valve repair changes. A loop recorder projects over the left thorax over the heart.Three lead cardiac conduction device over lying the left hemithorax with lead tips projecting over the right ventricle, right atrium and kaminski ry sinus. Musculoskeletal: No acute osseous pathology. IMPRESSION: No acute cardiopulmonary disease/process.
--- NOTE | 2022-04-12 10:40 | CDI ---
Documentation Clarification Form Date: 04/12/2022 10:10:54 AM From: Emely Sepulveda RN CCDS Admit Date: 04/11/2022 05:59:00 AM Patient Name: Ron Mclaughlin Visit Number: [id number] Discharge Date: ATTENTION: The Clinical Documentation Specialists (CDI) and [facility] Coding Staff appreciate your assistance in clarifying documentation. Please respond to the clarification below the line at the bottom and electronically sign. The CDI & [facility] Coding staff will review the response and follow-up if needed. Please note: Queries are made part of the Legal Health Record. If you have any questions, please contact the author of this message via ITS. Dr. Hector Young Arteriotomy in the common femoral artery is documented 04/11, TAVR Operative report and patient had TAVR, 04/11. Additional clarification is requested regarding the relationship, if any, that exists between the diagnosis and the procedure. Patients Admitting Diagnosis: Aortic Valve Stenosis Post-Operative Diagnosis: Aortic Valve Stenosis Procedure performed: .Implantation of 34mm Evolut-FX transcatheter aortic valve via right femoral approach under ELY and fluoro guidance with mild henry-valvular aortic regurgitation. 2.Placement of temporary pacemaker wire 3.Aortic Root Aortogram. 4.Pre-balloon aortic valvuloplasty with a 23 mm True balloon History/Risk Factors: 81-year-old male presents to [facility] with Aortic stenosis for elective TAVR surgery. Medical History: HTN, DM and HLD. 04/11, Plasterer Spot consult. Clinical Indicators: Procedure note 04/11 (Dr. Schreiber Note): Femoral angiogram was performed that showed no contrast leak. The left femoral angiogram demonstrated an arteriotomy in the common femoral artery and this was repaired using a 6F angioseal device with complete hemostasis. Treatment: Repaired using 6F angioseal device What relationship, if any, exists between the diagnosis of Arteriotomy and the procedure: [ ] Arteriotomy is a complication of surgical procedure [ ] Arteriotomy is an expected outcome of the surgical procedure [ ] Arteriotomy is related to patients co-morbid condition(s) of [ Please insert comorbid conditions ] & not a complication of the procedure [ X ] Other please specify _Arteriotomy is the term for the hole made for access and occurs in every heart catheterization and TAVR with access. Not a complication of procedure and describes the procedure that was performed. ___ [ ] Unable to determine (Template Last Revised: June 2020) JOHNNY
[2022-04-12 10:47] VITALS: BP 116/73; PULSE 80
--- NOTE | 2022-04-12 12:04 | CA ---
Transthoracic Echo Report Name: Ron Mclaughlin Age: 81 Gender: M : 1940 Exam Date: 04/12/2022 09:22 Exam Location: [place] [facility] Ht (in): 67 Wt (lb): 183 Ordering Physician: Alondra Borrego Attending/Referring Phys: [id number], [employer] Installer Cha Mendez RDCS Procedure CPT: Indications: post TAVR Cardiac Hx: Technical Quality: Fair Contrast 1: Total Dose (mL): Contrast 2: Total Dose (mL): MEASUREMENTS (Male / Female) Normal Values 2D ECHO LV Diastolic Diameter PLAX 3.7 cm 4.2 - 5.9 / 3.9 - 5.3 cm LV Systolic Diameter PLAX 2.5 cm IVS Diastolic Thickness 1.3 cm 0.6 - 1.0 / 0.6 - 0.9 cm LVPW Diastolic Thickness 1.3 cm 0.6 - 1.0 / 0.6 - 0.9 cm LV Relative Wall Thickness 0.7 RV Internal Dim ED PLAX 3.6 cm LVOT Diameter 1.9 cm LA Volume 135.4 cm??? 18 - 58 / 22 - 52 cm??? DOPPLER AV Peak Velocity 194.5 cm/s AV Peak Gradient 15.1 mmHg AV Mean Velocity 128.6 cm/s AV Mean Gradient 7.5 mmHg AV Velocity Time Integral 31.3 cm LVOT Peak Velocity 81.5 cm/s LVOT Peak Gradient 2.7 mmHg LVOT Velocity Time Integral 16.2 cm LVOT Stroke Volume 46.6 cm??? LVOT Stroke Volume Index 24.0 ml/m??? LVOT Cardiac Index 2003.8 cm???/min???m??? AV Area Cont Eq vti 1.5 cm??? AV Area Cont Eq pk 1.2 cm??? TR Peak Velocity 264.6 cm/s TR Peak Gradient 28.0 mmHg Right Ventricular Systolic Press 31.9 mmHg FINDINGS Left Ventricle Mildly increased septal wall thickness. Normal left ventricular systolic function with no obvious regional wall motion abnormalities. Left ventricular ejection fraction is estimated at 55-60 %. Right Ventricle Mild right ventricular dilatation. Right ventricular systolic pressure within normal limits.catheter/pacemaker wire in the right ventricular cavity. Right Atrium Mild right atrial dilatation. Left Atrium Severely increased left atrial volume. Moderately increased left atrial area. Mitral Valve Structurally normal mitral valve. Mild mitral annular calcification. Mild-to- moderate mitral regurgitation. Aortic Valve Normally functioning bioprosthetic aortic valve without stenosis with a peak velocity of 1.9 m/s, peak gradient 15 mmHg, mean gradient 8 mmHg, and estimated aortic valve area of 1.5 cm???. Mild aortic regurgitation. Tricuspid Valve Structurally normal tricuspid valve. Moderate tricuspid regurgitation. Pulmonic Valve Pulmonic valve not well visualized. Pericardium No pericardial effusion. Aorta Normal size aortic root and proximal ascending aorta. CONCLUSIONS 1. Normal left ventricle size and systolic function 2. Normal functioning of a bioprosthetic aortic valve with mild aortic regurgitation 3. Mild to moderate mitral with moderate tricuspid regurgitation 4. A wire is noted in the right ventricle. Previewed by: Dr. Louise Garrett MD (Electronically Signed) Final Date: 12 April 2022 12:03
--- NOTE | 2022-04-12 12:40 | P.PN ---
Subjective Progress Note Date: 04/12/22 Principal diagnosis: Severe aortic aortic valve stenosis, postop day #1 transcatheter aortic valve replacement I'm evaluating this patient today 04/11/2022 after an elective transcatheter aortic valve replacement by Hector Vidales Skaff. He has just returned from surgery. Patient is resting comfortably in bed on a 6 L simple mask. Vital signs are all stable. Lactated Ringer's is infusing at 50 ML's per hour. Patient has a known history of aortic stenosis, his functional capacity is been limited recently mainly due to fatigue and shortness of breath. Denies syncope or chest pain preoperatively. Patient did have an echocardiogram performed 12/20/2021 which showed a preserved left ventricular function and severe aortic stenosis with velocity of 4.4 and m/s and a mean gradient of 51 mmhg. A follow- up, preoperative, right-sided cardiac catheterization on 01/26/2022 showed aneurysmal circumflex and RCA which may be seen with Kawasaki's disease, Mild 20-30% Mid LAD Stenosis and 30% Circumflex Stenosis, and normal Left and Right- Sided Filling Pressures. Patient's other pertinent medical history includes obstructive sleep apnea with a CPAP at home that he does not use, current smoker, hypertension, hyperlipidemia, CVA/TIA, diabetes mellitus, pacemaker i mplantation. Patient has had a follow-up, postoperative chest x-ray today, which showed no acute pulmonary process and postsurgical changes. A postoperative CBC shows a WBC count of 4.6, hemoglobin 14.6, hematocrit 41.8, platelets 95,000. BMP is also stable with a sodium 137, potassium 3.8, chloride 108, serum CO2 22, BUN 28, creatinine 0.81, glucose 111. Patient is receiving DuoNeb inhalation, cefazolin for postsurgical prophylaxis, Eliquis for anticoagulation, Plavix for antiplatelet, heparin for DVT prophylaxis, Protonix for GI prophylaxis. I'm reevaluating this patient today on 04/12/2022 in ICU. Patient is postop day #1 for a transcatheter aortic valve replacement with a 34 mm Medtronic Fx core valve. He is quite confused, sitting up in the chair, with a sitter at bedside. He is oriented to self only, and is impulsive. He says he's leaving today "come hell or high water". He does have history of underlying dementia. He is moving all extremities equally, no facial asymmetry, and has no dysphasia. Hemodynamically, he remains quite stable on room air. Chest x-ray from today shows no acute cardiopulmonary process. Postoperative echocardiogram from today shows a normal functioning bioprosthetic aortic valve with mild aortic regurg, mild to moderate mitral regurg, and moderate tricuspid regurg. CBC from today is stable with a WBC count of 7.4, hemoglobin 14.2, hematocrit 42, platelets 113,000. BMP is also stable with a sodium 136, potassium 4, chloride 106, serum CO2 24, BUN 22, creatinine 0.76, glucose 111. He can receive DuoNeb inhalations as needed. Denies any shortness of breath, cough, fever. Receiving Protonix for GI prophylaxis, and is anticoagulated with Eliquis. Objective - Vital Signs Vital signs: Vital Signs Temp 97.7 F 04/12/22 08:00 Pulse 80 04/12/22 10:00 Resp 14 04/12/22 10:00 BP 116/73 04/12/22 10:00 Pulse Ox 96 04/12/22 10:00 FiO2 Intake & Output 04/11/22 04/12/22 04/12/22 18:59 06:59 18:59 Intake Total 2182 125 200 Output Total 375 400 0 Balance 1807 -275 200 Weight 83.3 kg 85.1 kg Intake: IV 1712 NS pressure bag 12 Sodium Chloride 0.9% 1, 200 000 ml @ 50 mls/hr IV . Q20H [facility] Rx#:[id number] Intake, IV Titration 50 50 Amount ceFAZolin 2 gm In Sodium 50 50 Chloride 0.9% 50 ml @ 100 mls/hr IVPB Q8HR [facility] Rx# :[id number] Oral 420 75 200 Output: Urine 375 400 0 Other: Voiding Method Urinal Toilet Toilet # Voids 1 150 0 ABP, PAP, CO, CI - Last Documented Arterial Blood Pressure 116/64 - Exam GENERAL EXAM: Alert, active, comfortable in no apparent distress. HEAD: Normocephalic. EYES: Normal reaction of pupils, equal size. NOSE: Clear with pink turbinates. THROAT: No erythema or exudates. NECK: No masses, no JVD. CHEST: No chest wall deformity. LUNGS: Equal air entry with no crackles, wheeze, rhonchi or dullness. CVS: S1 and S2 normal with no audible murmur, regular rhythm. ABDOMEN: No hepatosplenomegaly, normal bowel sounds, no guarding or rigidity. SPINE: No scoliosis or deformity SKIN: No rashes CENTRAL NERVOUS SYSTEM: No focal deficits, tone is normal in all 4 extremities. EXTREMITIES: There is no peripheral edema. No clubbing, no cyanosis. Perip heral pulses are intact. There are bilateral groin puncture sites approximated. No hematoma present. - Labs CBC & Chem 7: 04/12/22 05:48 04/12/22 05:48 Labs: Abnormal Lab Results - Last 24 Hours (Table) 04/12/22 04/12/22 Range/Units 05:48 05:48 Plt Count 113 L (150-450) k/uL Lymphocytes # 0.9 L (1.0-4.8) k/uL Sodium 136 L (137-145) mmol/L BUN 22 H (9-20) mg/dL Glucose 111 H (74-99) mg/dL Assessment and Plan Assessment: Severe aortic stenosis status post transcatheter aortic valve replacement. Postop day #1 Thrombocytopenia for with Obstructive sleep apnea. he is noncompliant with home CPAP Primary hypertension Hyperlipidemia Diabetes mellitus History of CVA History of dementia Plan: Patient's labs, medications, x-ray report reviewed keep sitter at bedside and maintain fall precautions Oxygen to maintain oxygen saturation greater than 92% Continue postsurgical antibiotic prophylaxis form of Keflex completed Will continue Protonix for GI prophylaxis continue anticoagulation with Eliquis Will continue to follow I have personally seen and examined the patient, performed the documentation and the assessment and plan as written. Number of minutes spent on the visit: [10 ]. Time with Patient: Less than 30
--- NOTE | 2022-04-12 13:58 | P.DS ---
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 Severe symptomatic aortic valve stenosis, NYHA class II symptoms 2. Mild nonobstructive coronary artery disease 3. Permanent atrial fibrillation, on Eliquis for anticoagulation on an outpatient basis 4. Sick sinus syndrome, status post biventricular permanent pacemaker placement 5. Hypertension 6. Hyperlipidemia 7. Borderline diabetes mellitus 8. Remote history of TIA in 2013 with no residual deficits 9. Dementia 10. History of BPH, status post TURP 11. Remote history of nicotine dependence with smoking in , chews tobacco PROCEDURE: 1. Percutaneous aortic valve implantation using a 34 mm Evolute-FX under ELY and fluoroscopy guidance 2. Transesophageal echocardiography performed by anesthesia 3. Ultrasound-guided access and repair of right femoral artery access site by Perclose closure device 4. Placement of temporary pacemaker wire 5. Aortic root angiography 6. Pre-balloon aortic valvuloplasty with a 23 mm True Blue HISTORY OF PRESENT ILLNESS: This is a 81-year-old gentleman who follows on an outpatient basis with Dr. Juan Blank for primary care and Dr. Jones for his cardiology care. Recently, the patient has been experiencing fatigue and shortness of breath with exertion consistent with NYHA class II. The patient has a known history of aortic valve stenosis which has been followed closely by his primary care doctor and med surg nurse. On 12/20/2021 due to the patient's symptoms a transthoracic 2-D echocardiogram was completed which showed a normal left ventricular size with normal function, an ejection fraction estimated at 55-60%, mild aortic valve regurgitation with critical aortic valve stenosis with an aortic valve area of 0.58 cm, a peak gradient of 80 mmHg and a mean gradient of 51 mmHg. It also demonstrated severe tricuspid valve regurgitation, trace pulmonic valve regurgitation and moderate mitral valve regurgitation. 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 Subsequently, after his workup was completed an STS risk score was calculated along with an incremental risk score and the patient was felt to be an intermediate risk for surgical aortic valve replacement, but given his age seemed to be more appropriately suited for trans-catheter aortic valve replacement. The usual course of TAVR was discussed in detail with the patient and his daughter, risks and benefits were reviewed, shared decision making between cardiology, surgery and the patient/family took place and the patient consented to proceed with the TAVR procedure. HOSPITAL COURSE: The patient was brought to the hospital on 04/11/2022, was taken to the extended stay area, prepared in the usual fashion, and subsequently taken to the cardiac catheterization laboratory where Dr. Young and Dr. Mata completed TAVR procedure under general anesthesia with fluoroscopy and ELY. The valve was deployed under rapid ventricular pacing and proceeded without event. At the end of the procedure there was low gradient, hemodynamics were felt to be acceptable, and there was mild perivalvular regurgitation which was felt to be not significant and a mean gradient of 2 mmHg. Upon completion of the procedure the patient was extubated and was transferred to the cardiovascular intensive care unit where he was recovered and monitored hemodynamically. His oxygen was titrated down, he was tolerating an oral diet, his pain was controlled, follow-up TTE was stable, and he was ready to be discharged to home on postoperative day #1. He received written and verbal instruction regarding his medications, activity restrictions, signs and symptoms requiring physician notification, and follow-up appointments. Plan - Discharge Summary Discharge Rx Participant: Yes New Discharge Prescriptions: New Metoprolol Tartrate [Lopressor] 12.5 mg PO BID #60 tab Clopidogrel [Plavix] 75 mg PO DAILY #30 tab Apixaban [Eliquis] 2.5 mg PO BID #60 tab Continue hydrALAZINE HCL [Apresoline] 50 mg PO BID Cholecalciferol (Vitamin D3) [Vitamin D3] 1,000 unit PO BID Multivitamin,Therapeutic [Thera] 1 tab PO DAILY hydroCHLOROthiazide [Hydrodiuril] 25 mg PO DAILY Red Yeast Rice 600 mg PO DAILY Losartan Potassium 100 mg PO DAILY Memantine [Namenda] 5 mg PO HS Folic Acid 1 mg PO DAILY Acetaminophen Tab [Tylenol] 1,300 mg PO BID Donepezil [Aricept] 10 mg PO HS Discontinued Aspirin 81 mg PO DAILY chew Apixaban [Eliquis] 5 mg PO BID Discharge Medication List hydrALAZINE HCL [Apresoline] 50 mg PO BID 03/05/14 [History] Cholecalciferol (Vitamin D3) [Vitamin D3] 1,000 unit PO BID 03/20/18 [History] Multivitamin,Therapeutic [Thera] 1 tab PO DAILY 03/31/18 [History] Losartan Potassium 100 mg PO DAILY 03/15/20 [History] Red Yeast Rice 600 mg PO DAILY 03/15/20 [History] hydroCHLOROthiazide [Hydrodiuril] 25 mg PO DAILY 03/15/20 [History] Acetaminophen Tab [Tylenol] 1,300 mg PO BID 01/24/22 [History] Donepezil [Aricept] 10 mg PO HS 01/24/22 [History] Folic Acid 1 mg PO DAILY 01/24/22 [History] Memantine [Namenda] 5 mg PO HS 04/05/22 [History] Apixaban [Eliquis] 2.5 mg PO BID #60 tab 04/12/22 [Rx] Clopidogrel [Plavix] 75 mg PO DAILY #30 tab 04/12/22 [Rx] Metoprolol Tartrate [Lopressor] 12.5 mg PO BID #60 tab 04/12/22 [Rx] Follow up Appointment(s)/Referral(s): Alessandro Jones MD [STAFF PHYSICIAN] - 04/19/22 1:15 pm (Your appointment 04/19 is for a groin check. You also have a 30 day post TAVR echo 05/16/2022 at 8:15 am and 30 day post TAVR follow up with Dr. Jones 06/01/22 @ 4[address] at [address] [facility] inside [facility]. 1 year follow up echo 03/13/23 @ 11:15 am, [address] up [address]. Jones 04/12/23 @ 1:30 pm at [facility]) Juan Blank MD [Primary Care Provider] - As Needed Clinic,Structural Heart [NON-STAFF] - 06/01/22 3:30 pm (Appointment 06/01 is in the Valve Clinic behind the hospital, please come before your appointment with Dr. Jones. Also, 1 year follow up in the Valve Clinic 04/12/23 at 1 pm) Ambulatory/Diagnostic Orders: Complete Blood Count w/diff [LAB.AMB] Facility: [facility], Location: [facility] Complete Blood Count w/diff [LAB.AMB] Facility: [facility], Location: [facility] Comprehensive Metabolic Panel [LAB.AMB] Facility: [facility], Location: [facility] Comprehensive Metabolic Panel [LAB.AMB] Facility: [facility], Location: [facility] Activity/Diet/Wound Care/Special Instructions: DISCHARGE INSTRUCTIONS: 1. No driving for 1 week, or until physician gives their ok. 2. No lifting, pushing, or pulling more than 5-10 pounds for 1 week. 3. Hold both groins when you cough or sneeze for the next 2 weeks. Bruising is common, but report increased swelling, pain or fever >101F 4. Shower daily. No pool, hot tub, or bathtub for 1 week 5. No powders, lotions, ointments on incisions. 6. No straining, including for bowel movements. Use stool softner if necessary 7. Stairs are not an issue. Go slowly, using handrail and take 1 step at a time. Ambulate several times daily 8. Continue pain control per as needed orders. 9. Take only the medications listed on your discharge form 10. Eat low salt (limited to 2 grams or 2000 milligrams) daily, avoid adding salt, avoid canned/processed foods 11. Take your weight daily in the morning and record, bring with you to your follow up appointments 12. Keep all follow up appointments. You will need a valve clinic appointment at 30 days and 1 year post procedure for follow up 13. You have been referred to and are expected to begin Cardiac Rehab in approximately 4 weeks. 14. You will need antibiotics prior to any dental work, including cleanings, and any surgeries to prevent Endocarditis (bacterial infection in your heart) For any questions or concerns please call your valve coordinators: Alondra or Florian @ Discharge Disposition: HOME SELF-CARE
[2022-04-12] MEDS ORDERED: SENNOSIDES-DOCUSATE SODIUM 1 EACH TAB PO SCH (21:00)
[2022-04-12] MEDS ORDERED: APIXABAN 2.5 MG TABLET PO SCH ×2 (21:00)
--- NOTE | 2022-04-13 11:50 | IR ---
EXAMINATION TYPE: IR stent intravas non coronary DATE OF EXAM: 04/11/2022 CLINICAL HISTORY: TAVR TECHNIQUE: Fluoroscopy and DSA. COMPARISON: None. FINDINGS: Fluoroscopic guidance was provided during procedure performed by Dr. Young. A total of 24.2 minutes of fluoroscopic time was utilized during the procedure. Please see separate dictation fr om referring clinician. IMPRESSION: As Above.
== END 2022-04-12 14:00 | disposition home or self-care (01) | DRG 267 ==
LOC: 2ORMAIN 05:59 → 2SICU 09:28
PROVIDERS: ADMIT Internal Medicine; ATTEND Internal Medicine
PROC: 02RF3JZ Replacement of Aortic Valve with Synthetic Substitute, Percutaneous Approach (ICD-10-PCS; principal; 2022-04-11 08:00)
PROC: B310ZZZ Fluoroscopy of Thoracic Aorta (ICD-10-PCS; 2022-04-11 08:00)
DX: I08.3 Combined rheumatic disorders of mitral, aortic and tricuspid valves (principal); Z00.6 Encounter for examination for normal comparison and control in clinical research program; F03.A11 Unspecified dementia, mild, with agitation; I48.21 Permanent atrial fibrillation; D69.6 Thrombocytopenia, unspecified; I49.5 Sick sinus syndrome; I10 Essential (primary) hypertension; E11.9 Type 2 diabetes mellitus without complications; E78.5 Hyperlipidemia, unspecified; G47.33 Obstructive sleep apnea (adult) (pediatric); I25.10 Atherosclerotic heart disease of native coronary artery without angina pectoris; N40.0 Benign prostatic hyperplasia without lower urinary tract symptoms; F17.220 Nicotine dependence, chewing tobacco, uncomplicated; H54.61 Unqualified visual loss, right eye, normal vision left eye; G89.29 Other chronic pain; M43.9 Deforming dorsopathy, unspecified; F17.210 Nicotine dependence, cigarettes, uncomplicated; Z86.73 Personal history of transient ischemic attack (TIA), and cerebral infarction without residual deficits; Z90.79 Acquired absence of other genital organ(s); Z91.199 Patient's noncompliance with other medical treatment and regimen due to unspecified reason; Z91.040 Latex allergy status; Z88.2 Allergy status to sulfonamides; Z88.8 Allergy status to other drugs, medicaments and biological substances; Z91.048 Other nonmedicinal substance allergy status; Z79.01 Long term (current) use of anticoagulants; Z79.82 Long term (current) use of aspirin; Z79.899 Other long term (current) drug therapy; Z28.311 Partially vaccinated for COVID-19
CPT/HCPCS: 33210; 33362; 71045; 80053; 82330; 83735; 85025; 85610; 85730; 86850; 86891; 86900; 86901; 93306; 93312; 93320; 93325

== ENCOUNTER 2023-09-25 09:58 | Emergency (ER) | payer MEDICARE, OTHER ==
--- NOTE | 2023-09-25 10:27 | ED ---
General Adult HPI - General Source: patient, family, RN notes reviewed Mode of arrival: ambulatory Limitations: no limitations <Vickie Zapata - Last Filed: 09/25/23 10:25> - General Source: patient, family, RN notes reviewed Mode of arrival: ambulatory Limitations: no limitations <Key Gregorio - Last Filed: 09/26/23 12:05> - General Chief complaint: Recheck/Abnormal Lab/Rx Stated complaint: mental health Time Seen by Provider: 09/25/23 10:12 - History of Present Illness Initial comments: John noteis an 83-year-old male with a history of dementia presents emergency department accompanied by his family with chief complaint of mental health evaluation. Family states that patient is currently living at home by himself and they are requesting placement. Patient has a history of A-fib with a pacemaker in place and is on Eliquis and Plavix. Patient follows with Dr. Blank. (Vickie Zapata) 83-year-old male accompanied by his daughter presenting to the ER for memory care placement. Daughter is providing majority of HPI. Patient has a past medical history significant of dementia and daughter reports for the past 3 weeks he has been having an increase in elopement. She states he lives at home by himself and frequently is found wandering through the neighborhood. She states he spent the night at her home last night and around 3 AM patient wandered into a neighbor's house. Daughter is concerned of patient's safety as he lives at home alone and is looking for possible memory care placement. Patient denies any headache, cough, congestion, fevers, chills, chest pain, shortness of breath, abdominal pain or peripheral edema. (Key Gregorio) - Related Data Home Medications Medication Instructions Recorded Confirmed Multivitamin,Therapeutic [Thera] 1 tab PO DAILY 03/31/18 09/25/23 Losartan Potassium 50 mg PO DAILY 03/15/20 09/25/23 Red Yeast Rice 1,200 mg PO DAILY 03/15/20 09/25/23 hydroCHLOROthiazide [Hydrodiuril] 25 mg PO DAILY 03/15/20 09/25/23 Acetaminophen Tab [Tylenol] 650 mg PO Q6H PRN 01/24/22 09/25/23 Donepezil [Aricept] 10 mg PO HS 01/24/22 09/25/23 Folic Acid 1 mg PO DAILY 01/24/22 09/25/23 Apixaban [Eliquis] 2.5 mg PO BID 09/25/23 09/25/23 Cholecalciferol [Vitamin D3 (125 125 mcg PO DAILY 09/25/23 09/25/23 Mcg = 5000 Iu)] Memantine [Namenda] 10 mg PO BID 09/25/23 09/25/23 Metoprolol Tartrate [Lopressor] 12.5 mg PO BID 09/25/23 09/25/23 hydrALAZINE HCL [Apresoline] 50 mg PO BID 09/25/23 09/25/23 Previous Rx's Medication Instructions Recorded Clopidogrel [Plavix] 75 mg PO DAILY #30 tab 04/12/22 Allergies Allergy/AdvReac Type Severity Reaction Status Date / Time latex Allergy Rash/Hives Verified 09/25/23 12:36 Sulfa (Sulfonamide Allergy Swelling Verified 09/25/23 12:36 Antibiotics) [id number] Reductase AdvReac Unknown Verified 09/25/23 12:36 Inhibitor [Ivduxut-Upl-Zco Reductase Inhibitor] ELASTIC Allergy Rash/Hives Uncoded 09/25/23 10:23 Review of Systems ROS Other: All systems not noted in ROS Statement are negative. <Vickie Zapata - Last Filed: 09/25/23 10:25> ROS Other: All systems not noted in ROS Statement are negative. <Key Gregorio - Last Filed: 09/26/23 12:05> ROS Statement: Those systems with pertinent positive or pertinent negative responses have been documented in the HPI. Past Medical History Past Medical History: Cancer, CVA/TIA, Diabetes Mellitus, Hyperlipidemia, Osteoarthritis (OA) Additional Past Medical History / Comment(s): TIA 0ct2012, states no residual effects, "borderline diabetic-diet control", hx skin cancer on face History of Any Multi-Drug Resistant Organisms: None Reported Past Surgical History: Heart Catheterization, Pacemaker, Prostate Surgery Additional Past Surgical History / Comment(s): HYDROCELE REPAIR, TURP, ELY, has a loop recorder(not functioning) Past Anesthesia/Blood Transfusion Reactions: No Reported Reaction Type of Cardiac Device: Permanent Pacemaker Device Placement Date:: 05/20/18 Past Psychological History: No Psychological Hx Reported Smoking Status: Heavy tobacco smoker Past Alcohol Use History: None Reported Past Drug Use History: None Reported - Past Family History Father Family Medical History: Chest Pain / Angina Mother Family Medical History: No Reported History Additional Family Medical History / Comment(s): alzheimers <Vickie Zapata - Last Filed: 09/25/23 10:25> General Exam Limitations: no limitations <Vickie Zapata - Last Filed: 09/25/23 10:25> General appearance: alert, in no apparent distress Head exam: Present: atraumatic, normocephalic, normal inspection Respiratory exam: Present: normal lung sounds bilaterally. Absent: respiratory distress, wheezes, rales, rhonchi, stridor Cardiovascular Exam: Present: regular rate, normal rhythm, normal heart sounds. Absent: systolic murmur, diastolic murmur, rubs, gallop, clicks GI/Abdominal exam: Present: soft, normal bowel sounds. Absent: distended, tenderness, guarding, rebound, rigid Extremities exam: Present: normal inspection, full ROM, normal capillary refill. Absent: tenderness, pedal edema, joint swelling, calf tenderness Skin exam: Present: warm, dry, intact, normal color. Absent: rash <Key Gregorio - Last Filed: 09/26/23 12:05> - General Exam Comments Initial Comments: Visual Physical Exam Vital signs reviewed General: Well-appearing, nontoxic, no acute distress. Head: Normocephalic, atraumatic Eyes: PERRLA, EOMI ENT: Airway patent Chest: Nonlabored breathing Skin: No visual rash, normal skin tone Neuro: Alert and oriented 3 Musculoskeletal: No gross abnormalities (Vickie Zapata) Course Vital Signs 09/25/23 09/25/23 09/25/23 10:21 11:46 14:25 Temperature 98 F 97.5 F L Pulse Rate 66 62 65 Respiratory 18 16 18 Rate Blood Pressure 128/86 111/52 136/89 O2 Sat by Pulse 98 96 97 Oximetry Medical Decision Making <Vickie Zapata - Last Filed: 09/25/23 10:25> - Lab Data Result diagrams: 09/25/23 11:17 09/25/23 12:31 - EKG Data -: EKG Interpreted by Me <Key Gregorio - Last Filed: 09/26/23 12:05> - Medical Decision Making I completed the quick note portion of this chart signed Vickie Zapata PA-C (Vickie Zapata) Was pt. sent in by a medical professional or institution (TRAVIS Zhang, LANDSCAPE CONTRACTOR, urgent care, hospital, or detention...) When possible be specific @ -No Did you speak to anyone other than the patient for history (EMS, parent, family, police, friend...)? What history was obtained from this source @ -Daughter providing HPI Did you review nursing and triage notes (agree or disagree)? Why? @ -I reviewed and agree with nursing and triage notes Were old charts reviewed (outside hosp., previous admission, EMS record, old EKG, old radiological studies, urgent care reports/EKG's, detention records)? Report findings @ -No old charts were reviewed Differential Diagnosis (chest pain, altered mental status, abdominal pain women, abdominal pain men, vaginal bleeding, weakness, fever, dyspnea, syncope, headache, dizziness, GI bleed, back pain, seizure, CVA, palpatations, mental health, musculoskeletal)? @ -Differential Weakness:Hypoglycemia, shock, sepsis, hyponatremia, anemia, infection, IN, ETOH, adverse medicine reaction, overdose, stroke, this is not meant to be an all-inclusive list. EKG interpreted by me (3pts min.). @ -As above X-rays interpreted by me (1pt min.). @ -None done CT interpreted by me (1pt min.). @ -None done U/S interpreted by me (1pt. min.). @ -None done What testing was considered but not performed or refused? (CT, X-rays, U/S, labs)? Why? @ -None What meds were considered but not given or refused? Why? @ -None Did you discuss the management of the patient with other professionals (professionals i.e. TRAVIS Zhang, LANDSCAPE CONTRACTOR, lab, RT, psych nurse, social service agency director, hand turner, teacher, assault amphibious vehicle officer, showcase maker)? Give summary @ -Yes, case discussed with case management who advised on outpatient management. They also provided outpatient resources for the family. Was smoking cessation discussed for >3mins.? @ -No Was critical care preformed (if so, how long)? @ -No Were there social determinants of health that impacted care today? How? (H omelessness, low income, unemployed, alcoholism, drug addiction, transportation, low edu. Level, literacy, decrease access to med. care, retirement, rehab)? @ -No Was there de-escalation of care discussed even if they declined (Discuss DNR or withdrawal of care, Hospice)? DNR status @ -No What co-morbidities impacted this encounter? (DM, HTN, Smoking, COPD, CAD, Cancer, CVA, ARF, Chemo, Hep., AIDS, mental health diagnosis, sleep apnea, morbid obesity)? @ -Dementia Was patient admitted / discharged? Hospital course, mention meds given and route, prescriptions, significant lab abnormalities, going to OR and other pertinent info. @ -Discharged. 83 year old male presenting to the ER for evaluation of dementia/elopement. Daughter providing HPI in its entirety. History and physical exam completed. Vitals significant for temperature 98, heart rate 66, respiratory rate 18, blood pressure 128/86, oxygen saturation 98% on room air. Exam unremarkable. Patient has no acute complaints at this time. Laboratory studies obtained nonspecific. EKG showing a ventricular paced rhythm with no acute ST segment or T wave abnormalities. Urine analysis unremarkable. I discussed this case with case management who provided family with outpatient resources for memory care placement. Results discussed with family, all questions answered. Patient ambulated in the ER with wheeled walker without difficulty. Advised close follow-up with primary care physician. Return parameters discussed. Patient discharged in stable condition. Daughter verbally expressed understanding and agreement with care plan. Case discussed with ED attending, Dr. Rose. Undiagnosed new problem with uncertain prognosis? @ -No Drug Therapy requiring intensive monitoring for toxicity (Heparin, Nitro, Insulin, Cardizem)? @ -No Were any procedures done? @ -No Diagnosis/symptom? @ -Dementia Acute, or Chronic, or Acute on Chronic? @ -acute Uncomplicated (without systemic symptoms) or Complicated (systemic symptoms)? @ -uncomplicated Side effects of treatment? @ -No Exacerbation, Progression, or Severe Exacerbation? @ -No Poses a threat to life or bodily function? How? (Chest pain, [place], [place], pneumonia, PE, COPD, DKA, ARF, appy, cholecystitis, CVA, Diverticulitis, Homicidal, Suicidal, threat to staff... and all critical care pts) @ -No (eKy Gregorio) - Lab Data Lab Results 09/25/23 09/25/23 09/25/23 Range/Units 11:17 12:31 13:34 WBC 6.1 (3.8-10.6) k/uL RBC 4.70 (4.30-5.90) m/uL Hgb 16.0 (13.0-17.5) gm/dL Hct 46.3 (39.0-53.0) % MCV 98.3 (80.0-100.0) fL MCH 34.0 (25.0-35.0) pg MCHC 34.6 (31.0-37.0) g/dL RDW 14.1 (11.5-15.5) % Plt Count 136 L (150-450) k/uL MPV 9.5 Neutrophils % 67 % Lymphocytes % 19 % Monocytes % 8 % Eosinophils % 4 % Basophils % 0 % Neutrophils # 4.1 (1.3-7.7) k/uL Lymphocytes # 1.2 (1.0-4.8) k/uL Monocytes # 0.5 (0-1.0) k/uL Eosinophils # 0.2 (0-0.7) k/uL Basophils # 0.0 (0-0.2) k/uL Sodium 139 (137-145) mmol/L Potassium 3.9 (3.5-5.1) mmol/L Chloride 110 H (98-107) mmol/L Carbon Dioxide 21 L (22-30) mmol/L Anion Gap 8 mmol/L BUN 33 H (9-20) mg/dL Creatinine 0.90 (0.66-1.25) mg/dL Est GFR (CKD-EPI)AfAm 90 (>60 ml/min/1.73 sqM) Est GFR (CKD-EPI)NonAf 78 (>60 ml/min/1.73 sqM) Glucose 118 H (74-99) mg/dL Calcium 9.1 (8.4-10.2) mg/dL Total Bilirubin 0.8 (0.2-1.3) mg/dL AST 37 (17-59) U/L ALT 23 (4-49) U/L Alkaline Phosphatase 61 (38-126) U/L Total Protein 6.6 (6.3-8.2) g/dL Albumin 3.7 (3.5-5.0) g/dL Urine Color Yellow Urine Appearance Clear (Clear) Urine pH 5.0 (5.0-8.0) Ur Specific Vanderbilt 1.021 (1.001-1.035) Urine Protein Negative (Negative) Urine Glucose (UA) Negative (Negative) Urine Ketones Negative (Negative) Urine Blood Negative (Negative) Urine Nitrite Negative (Negative) Urine Bilirubin Negative (Negative) Urine Urobilinogen <2.0 (<2.0) mg/dL Ur Leukocyte Esterase Negative (Negative) - EKG Data EKG Comments: EKG taken at 11: 16 showing ventricular paced rhythm no acute ST segment or T wave abnormalities. Ventricular rate 78, QRS duration 147, QT/QTc 437/470. (Key Gregorio) Disposition <Vickie Zapata - Last Filed: 09/25/23 10:25> Is patient prescribed a controlled substance at d/c from ED?: No Time of Disposition: 13:59 <Key Gregorio - Last Filed: 09/26/23 12:05> Clinical Impression: Dementia Disposition: HOME SELF-CARE Condition: Stable Instructions (If sedation given, give patient instructions): Dementia (ED) Additional Instructions: Please follow-up with primary care physician. Return to the ER for any new or worsening concerns. Referrals: Juan Blank MD [Primary Care Provider] - 1-2 days Centers,[facility] [NON-STAFF] - (Day Program ) Services,[facility] [NON-STAFF] - Forms: Adult [facility] List, Assisted Living Facilities, Personal Binding Folder Machine
[2023-09-25 11:51] LABS: Basophils % (A) 0 %; Eosinophils # (A) 0.2 k/uL (0-0.7); Eosinophils % (A) 4 %; HCT 46.3 % (39.0-53.0); Lymphocytes # (A) 1.2 k/uL (1.0-4.8); Lymphocytes % (A) 19 %; MCHC 34.6 g/dL (31.0-37.0); MCV 98.3 fL (80.0-100.0); Mean Platelet Volume 9.5; Monocytes # (A) 0.5 k/uL (0-1.0); Monocytes % (A) 8 %; Neutrophils # (A) 4.1 k/uL (1.3-7.7); Neutrophils % (A) 67 %; Platelet Count 136 k/uL (150-450); RDW 14.1 % (11.5-15.5); WBC 6.1 k/uL (3.8-10.6)
[2023-09-25 11:57] VITALS: TEMP 97.5
[2023-09-25 12:52] LABS: ALT 23 U/L (4-49); AST 37 U/L (17-59); African American GFR (CKD) 90 (>60 ml/min/1.73 sqM); Albumin 3.7 g/dL (3.5-5.0); Alkaline Phosphatase 61 U/L (38-126); Anion Gap 8 mmol/L; Blood Urea Nitrogen 33 mg/dL (9-20); Calcium 9.1 mg/dL (8.4-10.2); Carbon Dioxide 21 mmol/L (22-30); Chloride 110 mmol/L (98-107); Glucose 118 mg/dL (74-99); Non-African American GFR(CKD) 78 (>60 ml/min/1.73 sqM); Potassium 3.9 mmol/L (3.5-5.1); Sodium 139 mmol/L (137-145); Total Bilirubin 0.8 mg/dL (0.2-1.3); Total Protein 6.6 g/dL (6.3-8.2)
[2023-09-25 13:41] LABS: Appearance,Urine Clear (Clear); Bilirubin,Urine Negative (Negative); Blood,Urine Negative (Negative); Color,Urine Yellow; Glucose,Urine (UA) Negative (Negative); Ketones,Urine Negative (Negative); Leukocyte Esterase,Urine Negative (Negative); Nitrite,Urine Negative (Negative); Protein,Urine Negative (Negative); Specific Gravity,Urine 1.021 (1.001-1.035); Urobilinogen,Urine <2.0 mg/dL (<2.0)
[2023-09-25 14:37] VITALS: BP 136/89; PULSE 65; RESP 18
== END 2023-09-25 14:37 | disposition home or self-care (01) ==
LOC: EC 09:58
DX: F03.90 Unspecified dementia, unspecified severity, without behavioral disturbance, psychotic disturbance, mood disturbance, and anxiety (principal); F17.200 Nicotine dependence, unspecified, uncomplicated; Z88.2 Allergy status to sulfonamides; Z88.8 Allergy status to other drugs, medicaments and biological substances; Z91.040 Latex allergy status; Z88.1 Allergy status to other antibiotic agents
CPT/HCPCS: 36415; 80053; 81003; 85025; 93005; 99283